=== PATIENT | female | born 1945 | race Caucasian/White ===

== ENCOUNTER → 2016-09-09 | Outpatient (CLI) | payer BC ==
[~2016-09-09] MED LIST: AFRIN; AMOX875T PO; ANT25 PO; BIOTCAP2 PO; DIAZ-165 PO; IPRA1AER2 INH; LEVO112T2 PO; LOSA1TAB PO; MISCCAP80 PO; MULT-1016 PO; PRED10TA PO; PRT/40 PO; SALI0.6510; UMEC1AER INH
[2016-09-09 13:37] LABS: BASO % 0.4 %; BASO ABS # 0.02 K/uL (0-0.2); COMPLETE YES; EOS % 4.4 %; HEMATOCRIT 43.6 % (37-47); IG% 0.2 %; LYMPH ABS # 1.45 K/uL (1.2-3.4); MEAN CELL VOLUME 95.4 fL (80-100); MEAN CORPUSCULAR HEMOGLOBIN 31.9 pg (25-34); MEAN CORPUSCULAR HGB CONC 33.5 g/dl (32-36); MEAN PLATELET VOLUME 12.9 fL (7.4-10.4); MONO % 12.5 %; NEUT % 54.5 %; PLATELET COUNT 201 K/uL (130-400); RED BLOOD COUNT 4.57 M/uL (4.2-5.4); WHITE BLOOD COUNT 5.18 K/uL (4.8-10.8)
[2016-09-09 13:53] LABS: URINE APPEARANCE CLEAR (CLEAR); URINE BILIRUBIN NEG (NEG); URINE COLOR YELLOW; URINE EPITHELIAL CELL AUTO 20-30 /lpf (0-5); URINE NITRITE NEG (NEG); URINE SPECIFIC GRAVITY 1.022 (1.000-1.030); UROBILINOGEN NEG (NEG)
[2016-09-09 13:57] LABS: MANUAL MICROSCOPIC REQUIRED? NO; REVIEW REQ? NO
[2016-09-09 14:16] LABS: ALT/SGPT 41 U/L (12-78); BLOOD UREA NITROGEN 24 mg/dl (7-18); BUN/CREATININE RATIO 27.4 (10-20); CARBON DIOXIDE 26 mmol/L (21-32); CHLORIDE 106 mmol/L (98-107); CREATININE 0.86 mg/dl (0.60-1.20); GLUCOSE 93 mg/dl (70-99); POTASSIUM 4.3 mmol/L (3.5-5.1); SODIUM 143 mmol/L (136-145)
[2016-09-09 14:19] LABS: ALKALINE PHOSPHATASE 69 U/L (45-117); AST/SGOT 25 U/L (15-37)
== END | disposition home or self-care (01) ==
LOC: C.LAB 12:18
PROVIDERS: ATTEND Family Medicine
DX: K92.1 Melena (principal); R10.9 Unspecified abdominal pain

== ENCOUNTER → 2016-09-20 | Day surgery (SDC) | payer BC ==
[2016-09-19 07:37] VITALS: Ht 161.3 cm; Wt 96.4 kg
[~2016-09-20] VITALS: Ht 161.3 cm; Wt 96.4 kg
[~2016-09-20] MED LIST changes: -DIAZ-165 PO; +LIDOCAINE HCL 2% 2 ML VIAL (20MG/ML) ONE; +MIDAZOLAM HCL 1 MG/ML 2ML VIAL ONE; +ONDANSETRON INJ 2 MG/ML 2 ML VIAL ONE; +PROPOFOL IV EMULSION 10 MG/ML 20 ML VIAL IV ONE; +SODIUM CHLORIDE 0.9% 500ML 500 ML IV ONE
--- NOTE | 2016-09-20 08:48 | Endo History and Physical ---
History & Physical Date of Service: Sep 20, 2016. Chief Complaint: rectal bleeding Referring Physician: Dr. Candace Parker History of Present Illness 71 yo CF who presents for colonoscopy secondary to rectal bleeding. Past Medical History Arthritis, Cancer, COPD, Thyroid Disease Past Surgical History Hx Cardiac Surgery: No Hx Internal Defibrillator: No Hx Pacemaker: No Hx Abdominal Surgery: Yes (APPY) Hx of Implantable Prosthesis: No Hx Post-Op Nausea and Vomiting: No Hx Cancer Surgery: Yes (AZAR BSO) Hx Thoracic Surgery: No Hx Orthopedic: Yes (LEFT KNEE ARTHROSCOPY) Hx Urinary Tract Surgery: No Family History Polyp Social History Smoking Status: Never Smoker Hx Substance Use: No Hx Alcohol Use: No Allergies Coded Allergies: Morphine (Verified Allergy, Mild, itching, 09/19/16) Current Medications Reported Home Medications Medications Dose Route/Sig Max Daily Dose Days Date Category Biotin 5000 (Biotin) 5 Mg Cap 1 Cap PO BID 09/19/16 Reported Multivitamin Women 50+ (Multiple Vitamins W/ Minerals) 1 Tab Tab 1 Tab PO QAM 05/10/16 Reported Anoro Ellipta 62.5-25 Mcg/INH (Umeclidinium-Vilanterol) 1 Aer Aer 1 Puff INH QAM 05/10/16 Reported Combivent Respimat (Ipratropium-Albuterol) 1 Aer Aer 1 Puff INH QID PRN 12/04/15 Reported Synthroid (Levothyroxine Sodium) 112 Mcg Tab 112 Mcg PO QAM 07/22/15 Reported Pantoprazole Sodium (Pantoprazole) 40 Mg Tab 40 Mg PO QAM 07/22/15 Reported Vital Signs Weight (Kilograms): 96.36 Height (Feet): 5 Height (Inches): 3.5 Date Time Temp Pulse Resp B/P Pulse Ox O2 Delivery O2 Flow Rate FiO2 09/20/16 08:10 36.3 103 20 177/72 97 Room Air Physical Exam General Appearance: WD/WN, no apparent distress Respiratory/Chest: Auscultation: breath sounds normal Cardiovascular: Heart Auscultation: RRR Abdomen: Bowel Sounds: normal Inspection & Palpation: soft, non-distended, no tenderness, guarding & rebound Assessment and Plan Assessment: 71 yo CF who presents for colonoscopy secondary to rectal bleeding. Plan: Proceed with colonoscopy.
--- NOTE | 2016-09-20 09:36 | Discharge Instructions ---
Endoscopy Patient Instructions Date / Procedure(s) Performed Sep 20, 2016. Colonoscopy Allergy Information Coded Allergies: Morphine (Verified Allergy, Mild, itching, 09/19/16) Discharge Date / Findings Sep 20, 2016. Colon polyps Diverticulosis Internal hemorrhoids Medication Instructions OK to resume all medications today as prescribed. Reported Home Medications Medications Dose Route/Sig Max Daily Dose Days Date Category Biotin 5000 (Biotin) 5 Mg Cap 1 Cap PO BID 09/19/16 Reported Multivitamin Women 50+ (Multiple Vitamins W/ Minerals) 1 Tab Tab 1 Tab PO QAM 05/10/16 Reported Anoro Ellipta 62.5-25 Mcg/INH (Umeclidinium-Vilanterol) 1 Aer Aer 1 Puff INH QAM 05/10/16 Reported Combivent Respimat (Ipratropium-Albuterol) 1 Aer Aer 1 Puff INH QID PRN 12/04/15 Reported Synthroid (Levothyroxine Sodium) 112 Mcg Tab 112 Mcg PO QAM 07/22/15 Reported Pantoprazole Sodium (Pantoprazole) 40 Mg Tab 40 Mg PO QAM 07/22/15 Reported Provider Instructions Activity Restrictions - No exercising or heavy lifting for 24 hours. - Do not drink alcohol the day of the procedure. - Do not drive a car or operate machinery until the day after the procedure. - Do not make any important decisions or sign important papers in 24 hours after the procedure. Following Day: - Return to full activity which may include returning to work/school. Diet Start your diet with liquids and light foods (jello, soup, juice, toast). Then eat your usual diet if not nauseated. Treatment For Common After Affects For mild abdominal pain, bloating, or excessive gas: - Rest - Eat lightly - Lie on right side Follow-Up Information Follow-up with Dr. Candace Parker as scheduled Anesthesia Information What You Should Know You have had a procedure that required some medicine to reduce anxiety and discomfort. This treatment is called moderate sedation. After receiving the treatment, you may be sleepy, but you will be able to breathe on your own. The effects of the treatment may last for several hours. Follow these instructions along with Activity/Diet recommendations noted above: * Do NOT do anything where dizziness or clumsiness would be dangerous. * Rest quietly at home today, then you can be up and about tomorrow. * Have a responsible person stay with you the rest of today. * You may have had an I.V. today. If so, you may take the dressing off later today. Recommendations Call your doctor if: * Trouble breathing * Continuous vomiting for more than 24 hours * Temperature above 101 degrees * Severe abdominal pain or bloating * Pain not relieved by pain medicine ordered * There is increased drainage or redness from any incision * A large amount of rectal bleeding greater than 2-3 tablespoons. (If you had a polyp/s removed or have hemorrhoids, a small amount of blood - from the rectum is to be expected.) * You have any unanswered questions or concerns. IN THE EVENT OF A SERIOUS EMERGENCY, GO TO THE NEAREST EMERGENCY ROOM Your discharge instructions were prepared by provider Evgeny French. Patient Instructions Signature Page Cyn Modi Patient (or Guardian) Signature/Date: I have read and understand the instructions given to me by my caregivers. Caregiver/RN/Doctor Signature/Date: The above-named patient and/or guardian has received patient instructions on this date. + Original Patient Signature Page (only) stays with chart. Please make copy for patient.
[2016-09-20 09:43] VITALS: BP 136/82; PULSE 69; O2SAT 98
--- NOTE | 2016-09-20 09:45 | GI REPORT ---
Procedure Date: 09/20/2016 8:40 AM Procedure: Colonoscopy Indications: Rectal bleeding Medicines: Monitored Anesthesia Care Complications: No immediate complications. Estimated Blood Loss: Estimated blood loss: none. Procedure: Pre-Anesthesia Assessment: - Prior to the procedure, a History and Physical was performed, and patient medications and allergies were reviewed. The patient's tolerance of previous anesthesia was also reviewed. The risks and benefits of the procedure and the sedation options and risks were discussed with the patient. All questions were answered, and informed consent was obtained. Prior Anticoagulants: The patient has taken no previous anticoagulant or antiplatelet agents. ASA Grade Assessment: III - A patient with severe systemic disease. After reviewing the risks and benefits, the patient was deemed in satisfactory condition to undergo the procedure. After I obtained informed consent, the scope was passed under direct vision. Throughout the procedure, the patient's blood pressure, pulse, and oxygen saturations were monitored continuously. The scope was introduced through the anus and advanced to the terminal ileum. The colonoscopy was performed without difficulty. The patient tolerated the procedure well. The quality of the bowel preparation was good. The terminal ileum, ileocecal valve, appendiceal orifice, and rectum were photographed. Findings: Two sessile polyps were found in the transverse colon and in the ascending colon. The polyps were 5 to 8 mm in size. These polyps were removed with a hot snare. Resection and retrieval were complete. Multiple small-mouthed diverticula were found in the sigmoid colon. Non-bleeding internal hemorrhoids were found during retroflexion. The hemorrhoids were small. Impression: - Two 5 to 8 mm polyps in the transverse colon and in the ascending colon, removed with a hot snare. Resected and retrieved. - Diverticulosis in the sigmoid colon. - Non-bleeding internal hemorrhoids. Recommendation: - Resume previous diet. - Continue present medications. - Repeat colonoscopy for surveillance based on pathology results. - Return to primary care physician as previously scheduled. Evgeny French, DO 09/20/2016 9:45:17 AM This report has been signed electronically. Note Initiated On: 09/20/2016 8:40 AM
--- NOTE | 2016-09-20 09:50 | Anesthesiology Progress Note ---
Anesthesia Post Op Note Date & Time Sep 20, 2016 at 09:50 Vital Signs Pain Intensity: 0 Vital Signs Past 12 Hours Date Time Temp Pulse Resp B/P Pulse Ox O2 Delivery O2 Flow Rate FiO2 09/20/16 09:43 69 22 136/82 98 Room Air 09/20/16 09:28 87 22 111/69 95 Room Air 09/20/16 09:13 88 24 129/62 96 Room Air 09/20/16 08:10 36.3 103 20 177/72 97 Room Air Notes Mental Status: alert / awake / arousable, participated in evaluation Pt Amnestic to Procedure: Yes Nausea / Vomiting: adequately controlled Pain: adequately controlled Airway Patency, RR, SpO2: stable & adequate BP & HR: stable & adequate Hydration State: stable & adequate Anesthetic Complications: no major complications apparent
== END | disposition home or self-care (01) ==
LOC: C.GI 07:32
PROVIDERS: ATTEND Internal Medicine
DX: K62.5 Hemorrhage of anus and rectum (principal); D12.2 Benign neoplasm of ascending colon; D12.3 Benign neoplasm of transverse colon; K57.30 Diverticulosis of large intestine without perforation or abscess without bleeding; K64.8 Other hemorrhoids; J45.909 Unspecified asthma, uncomplicated; J44.9 Chronic obstructive pulmonary disease, unspecified; E07.9 Disorder of thyroid, unspecified; Z90.49 Acquired absence of other specified parts of digestive tract; Z98.890 Other specified postprocedural states

== ENCOUNTER 2016-09-23 16:49 | Inpatient (IN) | payer BC, OTHER ==
[~2016-09-23] VITALS: Ht 162.6 cm; Wt 98.3 kg
[~2016-09-23 16:49] MED LIST changes: -AFRIN; -AMOX875T PO; -ANT25 PO; -LIDOCAINE HCL 2% 2 ML VIAL (20MG/ML) ONE; -MIDAZOLAM HCL 1 MG/ML 2ML VIAL ONE; -MISCCAP80 PO; -ONDANSETRON INJ 2 MG/ML 2 ML VIAL ONE; -PRED10TA PO; -PROPOFOL IV EMULSION 10 MG/ML 20 ML VIAL IV ONE; -SALI0.6510; -SODIUM CHLORIDE 0.9% 500ML 500 ML IV ONE
[2016-09-23] MEDS ORDERED: METHYLPREDNISOLONE 125 MG VIAL IV STA (16:55)
[2016-09-23] MEDS ORDERED: ONDANSETRON INJ 2 MG/ML 2 ML VIAL IV STA (16:55)
[2016-09-23] MEDS ORDERED: LORAZEPAM 2 MG/ML 1 ML VIAL IV STA (16:55)
[2016-09-23] MEDS ORDERED: MECLIZINE HCL 25 MG TAB PO STA (16:55)
--- NOTE | 2016-09-23 17:03 | EMERGENCY ROOM VISIT NOTE ---
History Report prepared by Shira: Elvia De La Garza Under the Supervision of: Dr. Livier Grigsby M.D. First contact with patient: 16:52 Chief Complaint: VOMITING Stated Complaint: DIZZY, VOMITING, NAUSEA History of Present Illness The patient is a 71 year old female who presents to the Emergency Room with complaints of persistent vomiting that began prior to arrival. Per nursing staff, the patient was eating lunch at [employer] with her today. They note that after the patient and her had left, the patient began feeling dizzy and lightheaded. Nursing staff notes that the patient and her pulled off to the side of the road and the patient began vomiting. They state that the patient's called 911 for further assistance. Nursing staff notes that the patient arrived at the emergency department and began vomiting again. They note that the patient had just finished vomiting when she had a sudden syncopal episode. The patient describes the dizziness she is experiencing as a room spinning sensation. Today she states that her head hurts, and feels that it does not belong to her body. The patient's states that the patient has had two episodes of vertigo this past year, noting that with each episode she has experienced dry heaves. He states that this is the first time that the patient actually vomited. The patient denies any history of diabetes or being on any blood thinners. Source of History: patient, spouse/significant other (), nursing staff Onset: vomitting Position: other (global) Quality: other (vomiting) Timing: other (persistent) Associated Symptoms: + LOC (syncopal episode) Note: Associated Symptoms: dizziness, head pain, lightheadedness Review of Systems See HPI for pertinent positives & negatives. A total of 10 systems reviewed and were otherwise negative. Past Medical & Surgical Medical Problems: (1) Acute labyrinthitis (2) Chest pain (3) Gastroesophageal reflux disease (4) Thyroid disease (5) Uterine cancer (6) Vertigo (7) vertigo (8) Vertigo Surgical Problems: (1) History of appendectomy (2) History of hysterectomy Family History No pertinent family history Social History Smoking Status: Never Smoker Alcohol Use: none Drug Use: none Marital Status: Housing Status: lives with family Occupation Status: unemployed Current/Historical Medications Scheduled Amoxicillin & Pot Clavulanate (Augmentin 875-125 mg), 1 TAB PO BID Biotin (Biotin 5000), 1 CAP PO BID Levothyroxine Sodium (Synthroid), 112 MCG PO QAM Losartan Potassium (Cozaar), 25 MG PO QAM Multiple Vitamins W/ Minerals (Multivitamin Women 50+), 1 TAB PO QAM Pantoprazole (Pantoprazole Sodium), 40 MG PO QAM Prednisone (Prednisone), 10 MG PO DIRECTED Umeclidinium-Vilanterol (Anoro Ellipta 62.5-25 Mcg/INH), 1 PUFF INH QAM Scheduled PRN Ipratropium-Albuterol (Combivent Respimat), 1 PUFF INH QID PRN for SOB/Wheezing Allergies Coded Allergies: Morphine (Verified Allergy, Mild, itching, 09/23/16) Physical Exam Vital Signs Date Time Temp Pulse Resp B/P Pulse Ox O2 Delivery O2 Flow Rate FiO2 09/23/16 20:04 73 20 133/70 95 Room Air 09/23/16 17:40 97 Nasal Cannula 3.0 09/23/16 17:40 71 16 147/77 97 Nasal Cannula 3.0 09/23/16 17:03 72 09/23/16 17:03 37.4 72 18 163/76 98 Room Air Physical Exam Vital signs reviewed. General: Uncomfortable appearing 71 year old female, in no significant distress. HEENT: No scleral icterus, PERRLA, horizontal nystagmus, neck supple. Atraumatic. Cardiovascular: Regular rate and rhythm, no extra sounds. Pulmonary: Clear to auscultation bilaterally, normal work of breathing. Abdomen: Obese, soft, nontender, nondistended, positive bowel sounds. Musculoskeletal: Atraumatic, no peripheral edema. Neurologic: Patient awake alert and oriented x 3, full strength in all 4 extremities. Cranial nerves 2 through 12 grossly intact. Skin: Warm, dry, no rash Medical Decision & Procedures ER Provider Diagnostic Interpretation: X-ray results as stated below per my interpretation and radiologist interpretation. Other radiology results as stated below per my review and radiologist interpretation: CT HEAD WITHOUT CONTRAST (CT) CLINICAL HISTORY: vertigo, vomiting COMPARISON STUDY: 05/10/2016 TECHNIQUE: Axial CT of the brain is performed from the vertex to the skull base. IV contrast was not administered for this examination. CT DOSE: 773.57 mGy.cm FINDINGS: No intra or extra-axial mass lesions are visualized. There is no CT evidence of acute cortical infarction. There is no evidence of midline shift. There is no acute hemorrhage. No calvarial fractures are visualized. There are patchy white matter hypodensities likely on a small vessel basis. There is no evidence of pathologic ventricular dilatation. Since the prior study, the patient has developed mucosal thickening within the right maxilla sinus. There is sphenoid sinus mucosal disease. There are multiple opacified right-sided ethmoid air cells. There are right frontal air-fluid levels. There is a stable small lytic focus within the right frontal calvarium. IMPRESSION: 1. Interval development of extensive inflammatory changes within the paranasal sinuses. 2. Otherwise no acute intracranial findings Electronically signed by: John Frazier M.D. 09/23/2016 5:27 PM Dictated Date/Time: 09/23/2016 5:24 PM CHEST ONE VIEW PORTABLE CLINICAL HISTORY: vertigo, vomiting DIZZINESS COMPARISON STUDY: 12/04/2015 FINDINGS: The heart is mildly enlarged. There is radiographic evidence of mild congestive failure/fluid overload. There is no lobar consolidation. There is an equivocal 1 cm right midlung zone pulmonary nodule. A follow-up chest x-ray following treatment to the patient's presumed failure is recommended.[ IMPRESSION: 1. Mild congestive failure/fluid overload 2. Equivocal 1 cm right midlung zone pulmonary nodule Electronically signed by: John Frazier M.D. 09/23/2016 6:13 PM Dictated Date/Time: 09/23/2016 6:12 PM Laboratory Results Test 09/23/16 16:59 09/23/16 17:00 09/23/16 17:49 Bedside Glucose 131 mg/dl (70-90) Direct Bilirubin 0.1 mg/dl (0-0.2) Total Creatine Kinase 96 U/L (26-192) Creatine Kinase MB 0.7 ng/ml (0.5-3.6) Creatine Kinase MB Ratio 0.7 (0-3.0) Lipase 130 U/L (73-393) Bedside Troponin I 0.020 ng/ml (0-0.045) Laboratory results per my review. Medications Administered Medications (Trade) Dose Ordered Sig/Radha Route Start Time Stop Time Status Last Admin Dose Admin Ondansetron HCl (Zofran Inj) 4 mg NOW STAT IV 09/23/16 16:55 09/23/16 16:58 DC 09/23/16 17:12 4 MG Lorazepam (Ativan Inj) 1 mg NOW STAT IV 09/23/16 16:55 09/23/16 16:58 DC 09/23/16 17:12 1 MG Methylprednisolone Sodium Succinate (Solu-Medrol IV) 125 mg NOW STAT IV 09/23/16 16:55 09/23/16 16:58 DC 09/23/16 17:51 125 MG Meclizine HCl (Antivert Tab) 25 mg NOW STAT PO 09/23/16 16:55 09/23/16 16:58 DC 09/23/16 17:52 25 MG Oxymetazoline HCl 2 sprays 2 sprays NOW ONCE NOEMY 09/23/16 18:30 09/23/16 18:31 DC 09/23/16 20:03 2 SPRAYS Ampicillin Sodium/ Sulbactam Sodium/ Sodium Chloride (Unasyn Inj/Nss 100ml) 108 ml @ 200 mls/hr NOW STAT IV 09/23/16 18:26 09/23/16 18:58 DC 09/23/16 19:24 200 MLS/HR ECG Indication: other (dizzy) Rate (beats per minute): 72 Rhythm: normal sinus Findings: no acute ischemic change, no ectopy ED Course 1653: Past medical records reviewed. The patient was evaluated in room B3B. A complete history and physical examination was performed. Ordered Meclizine HCl 25 mg PO, Solu-Medrol 125 mg IV, Lorazepam 1 mg IV, Zofran Inj 4 mg IV. 1825: Ordered Ampicillin Sodium/Sulbactam Sodium 3000 mg/NSS 108 ml @ 200 mls/ hr IV, Oxymetazoline HCl 2 sprays NOEMY. 1899: I reassessed the patient. She was sleeping. 2004: I reassessed the patient. She began to vomit during an ambulation trial. I discussed a treatment plan with the patient, which she agreed to. 2023: I discussed the case with Dr. Rondon - [facility]. The patient will be evaluated for further management. Medical Decision Differential diagnosis: Etiologies such as benign positional vertigo, dehydration, hypovolemia, anemia, tumor, infection, hypoglycemia, electrolyte abnormalities, cardiac sources, intracerebral event, toxicologic, neurologic, as well as others were entertained. This pt was evaluated and appeared to be in no distress. IV access was obtained and lab work was drawn. Pt was hydrated with NSS, given IV zofran, solu-medral, ativan. CT head reveals evidence of severe sinusitis. Pt was reevaluated and was sleeping. She was observed for several hours in the ED. She failed an ambulation trial with 2 person assist. Pt has a near syncopal episode and vomited. Pt was given additional zofran, intranasal afrin and Unasyn IV. Findings were d/w pt and her . The hospitalist was consulted for further management. Consults Time Called: 2010 Consulting Physician: Dr. Alcon Mendenhall [facility] Returned Call: 2023 I discussed the case with him. The patient will be evaluated for further management. Impression Primary Impression: Acute sinusitis Additional Impression: Vertigo Scribe Attestation The scribe's documentation has been prepared under my direction and personally reviewed by me in its entirety. I confirm that the note above accurately reflects all work, treatment, procedures, and medical decision making performed by me. Departure Information Dispostion Being Evaluated By Hospitalist Prescriptions Prednisone (Prednisone) 10 Mg Tab 10 MG PO DIRECTED, #31 TAB 40 mg daily for 4 days, 30 mg daily for 3 days, 20 mg daily for 2 days, 10 mg daily for 2 days Prov: Livier Grigsby M.D. 09/23/16 Amoxicillin & Pot Clavulanate (Augmentin 875-125 mg) 1 Tab Tab 1 TAB PO BID, #20 TAB Prov: Livier Grigsby M.D. 09/23/16 Referrals Candace Cohn DO (PCP) Patient Instructions My [facility] Problem Qualifiers Primary Impression: Acute sinusitis Sinusitis location: maxillary Recurrence: not specified as recurrent Qualified Codes: J01.00 - Acute maxillary sinusitis, unspecified
--- NOTE | 2016-09-23 17:29 | DIAGNOSTIC IMAGING REPORT ---
CT HEAD WITHOUT CONTRAST (CT) CLINICAL HISTORY: vertigo, vomiting COMPARISON STUDY: 05/10/2016 TECHNIQUE: Axial CT of the brain is performed from the vertex to the skull base. IV contrast was not administered for this examination. CT DOSE: 773.57 mGy.cm FINDINGS: No intra or extra-axial mass lesions are visualized. There is no CT evidence of acute cortical infarction. There is no evidence of midline shift. There is no acute hemorrhage. No calvarial fractures are visualized. There are patchy white matter hypodensities likely on a small vessel basis. There is no evidence of pathologic ventricular dilatation. Since the prior study, the patient has developed mucosal thickening within the right maxilla sinus. There is sphenoid sinus mucosal disease. There are multiple opacified right-sided ethmoid air cells. There are right frontal air-fluid levels. There is a stable small lytic focus within the right frontal calvarium. IMPRESSION: 1. Interval development of extensive inflammatory changes within the paranasal sinuses. 2. Otherwise no acute intracranial findings Electronically signed by: John Frazier M.D. 09/23/2016 5:27 PM Dictated Date/Time: 09/23/2016 5:24 PM
[2016-09-23 17:31] LABS: BASO % 0.2 %; BASO ABS # 0.02 K/uL (0-0.2); COMPLETE YES; EOS % 1.7 %; HEMATOCRIT 40.6 % (37-47); IG% 0.3 %; LYMPH % 23.6 %; LYMPH ABS # 2.53 K/uL (1.2-3.4); MEAN CELL VOLUME 93.3 fL (80-100); MEAN CORPUSCULAR HEMOGLOBIN 32.4 pg (25-34); MEAN CORPUSCULAR HGB CONC 34.7 g/dl (32-36); MEAN PLATELET VOLUME 12.9 fL (7.4-10.4); MONO % 10.3 %; NEUT % 63.9 %; PLATELET COUNT 187 K/uL (130-400); RED BLOOD COUNT 4.35 M/uL (4.2-5.4); WHITE BLOOD COUNT 10.74 K/uL (4.8-10.8)
--- NOTE | 2016-09-23 18:15 | DIAGNOSTIC IMAGING REPORT ---
CHEST ONE VIEW PORTABLE CLINICAL HISTORY: vertigo, vomiting DIZZINESS COMPARISON STUDY: 12/04/2015 FINDINGS: The heart is mildly enlarged. There is radiographic evidence of mild congestive failure/fluid overload. There is no lobar consolidation. There is an equivocal 1 cm right midlung zone pulmonary nodule. A follow-up chest x-ray following treatment to the patient's presumed failure is recommended.[ IMPRESSION: 1. Mild congestive failure/fluid overload 2. Equivocal 1 cm right midlung zone pulmonary nodule Electronically signed by: John Frazier M.D. 09/23/2016 6:13 PM Dictated Date/Time: 09/23/2016 6:12 PM
[2016-09-23 18:21] LABS: POTASSIUM 3.9 mmol/L (3.5-5.1)
[2016-09-23] MEDS ORDERED: AMPICILLIN/SULBACTAM SOD INJ 3,000 MG in SODIUM CHLORIDE 0.9% 100ML 100 ML IV STA (18:26)
[2016-09-23 18:29] LABS: BUN/CREATININE RATIO 22.6 (10-20); CKMB/CK RATIO 0.7 (0-3.0); CREATININE 0.97 mg/dl (0.60-1.20)
[2016-09-23] MEDS ORDERED: OXYMETAZOLINE HCL 0.05% NA SPR 15 ML BTL NAE ONE (18:30)
[2016-09-23] MEDS ORDERED: AMOX875T PO (19:56)
[2016-09-23] MEDS ORDERED: PRED10TA PO (19:56)
[2016-09-23] MEDS ORDERED: IPRATROPIUM BROMIDE/ALBUTEROL respimat INH INH PRN (21:00)
[2016-09-23] MEDS ORDERED: ALUMINUM/MAGNESIUM/SIMETH (MAALOX MAX) 30 ML UDC PO PRN (21:15)
[2016-09-23] MEDS ORDERED: METOCLOPRAMIDE HCL INJ 5 MG/ML 2 ML VIAL IV PRN (21:15)
[2016-09-23] MEDS ORDERED: ACETAMINOPHEN 325 MG TAB PO PRN (21:15)
[2016-09-23] MEDS ORDERED: MAGNESIUM HYDROXIDE SUSP 30 ML UDC PO PRN (21:15)
[2016-09-23] MEDS ORDERED: POLYETHYLENE (MIRALAX) 17 GM PACK PO PRN (21:15)
--- NOTE | 2016-09-23 22:20 | History and Physical ---
History & Physical Date & Time of Service: Sep 23, 2016 at 21:37 Chief Complaint: Dizzy, Vomiting, Nausea Primary Care Physician: Candace Cohn DO History of Present Illness Source: patient 71 y/o F Hx HTN, hypothyroid - currently being treated for a sinus infection with Amoxicillin and Prednisone. She ate lunch and then got in the car with her when she developed acute vertigo on the drive. 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 She was treated with antiemetics and fluids ion the ER which initially had a palliative effect. She attempted to ambulate shortly thereafter and her symptoms quickly recurred. She describes a persistent spinning sensation and nausea at the time of admission. She denies fevers, CP, SOB or dysuria. A CT head was obtained which confirms sinusitis but was otherwise negative. Past Medical/Surgical History Medical Problems: (1) Gastroesophageal reflux disease Status: Chronic (2) Thyroid disease Status: Chronic (3) Uterine cancer Status: Resolved Surgical Problems: (1) History of appendectomy Status: Resolved (2) History of hysterectomy Status: Resolved Family History No pertinent family history Mother dementia, Father heart disease Social History Smoking Status: Never Smoker Drug Use: none Marital Status: Housing status: lives with significant other Occupational Status: unemployed Immunizations History of Influenza Vaccine: Yes Influenza Vaccine Date: Jun 13, 2008 History of Tetanus Vaccine?: Unknown History of Pneumococcal: Yes Pneumococcal Date: Nov 23, 2011 History of Hepatitis B Vaccine: No Multi-Drug Resistant Organisms History of MDRO: No Allergies Coded Allergies: Morphine (Verified Allergy, Mild, itching, 09/23/16) Home Medications Scheduled Amoxicillin & Pot Clavulanate (Augmentin 875-125 mg), 1 TAB PO BID Biotin (Biotin 5000), 1 CAP PO BID Levothyroxine Sodium (Synthroid), 112 MCG PO QAM Losartan Potassium (Cozaar), 25 MG PO QAM Multiple Vitamins W/ Minerals (Multivitamin Women 50+), 1 TAB PO QAM Pantoprazole (Pantoprazole Sodium), 40 MG PO QAM Prednisone (Prednisone), 10 MG PO DIRECTED Umeclidinium-Vilanterol (Anoro Ellipta 62.5-25 Mcg/INH), 1 PUFF INH QAM Scheduled PRN Ipratropium-Albuterol (Combivent Respimat), 1 PUFF INH QID PRN for SOB/Wheezing Review of Systems Constitutional: No chills, No fever, No sweats Eyes: + problem reported (Spinning sensation), + worsening of vision, No eye pain ENT: No hearing loss, No unusual epistaxis Respiratory: No cough, No sputum Cardiovascular: No PND, No chest pain, No orthopnea Abdomen: + nausea, + vomiting, No pain Musculoskeletal: No joint pain, No muscle pain Genitourinary - Female: No dysuria, No urinary frequency, No urinary urgency Neurologic: + balance problems, + vertigo, No memory loss, No paralysis, No weakness Psychiatric: No anhedonism, No depression symptoms Endocrine: No excessive thirst, No fatigue Hematologic / Lymphatic: No abnormal bleeding/bruising Integumentary: No rash Allergic / Immunologic: No environmental allergies Physical Exam Vital Signs Date Time Temp Pulse Resp B/P Pulse Ox O2 Delivery O2 Flow Rate FiO2 09/23/16 20:04 73 20 133/70 95 Room Air 09/23/16 17:40 97 Nasal Cannula 3.0 09/23/16 17:40 71 16 147/77 97 Nasal Cannula 3.0 09/23/16 17:03 72 09/23/16 17:03 37.4 72 18 163/76 98 Room Air General Appearance: WD/WN, no apparent distress Head: normocephalic Eyes: + pertinent finding (Pupils constricted likely due to meds - equal in size and reactive - she could not tolerate an eye exam to evaluate for nystagmus due to ongoing vertigo) ENT: hearing grossly normal, TMs normal, pharynx normal, + pertinent finding ( Tenderness to palpation above eyes ) Neck: supple, no JVD Respiratory/Chest: chest non-tender, lungs clear, normal breath sounds, no respiratory distress, no accessory muscle use Cardiovascular: regular rate, rhythm, no edema, no gallop Abdomen/GI: normal bowel sounds, non tender, soft Back: normal inspection Extremities/Musculoskelatal: normal inspection, no calf tenderness, normal capillary refill, no pedal edema, normal range of motion Neurologic/Psych: + pertinent finding (Exam is limited due to pt discomfort however she is able to maintain coordination with effort and is AAO x 3 - eye exam could not be completed - there may be a degree of nystagmus ) Skin: normal color, warm/dry, no rash Diagnostics Laboratory Results Results Past 24 Hours Test 09/23/16 16:59 09/23/16 17:00 09/23/16 17:49 Range/Units Bedside Glucose 131 70-90 mg/dl White Blood Count 10.74 4.8-10.8 K/uL Red Blood Count 4.35 4.2-5.4 M/uL Hemoglobin 14.1 12.0-16.0 g/dL Hematocrit 40.6 37-47 % Mean Corpuscular Volume 93.3 80-100 fL Mean Corpuscular Hemoglobin 32.4 25-34 pg Mean Corpuscular Hemoglobin Concent 34.7 32-36 g/dl Platelet Count 187 130-400 K/uL Mean Platelet Volume 12.9 7.4-10.4 fL Neutrophils (%) (Auto) 63.9 % Lymphocytes (%) (Auto) 23.6 % Monocytes (%) (Auto) 10.3 % Eosinophils (%) (Auto) 1.7 % Basophils (%) (Auto) 0.2 % Neutrophils # (Auto) 6.87 1.4-6.5 K/uL Lymphocytes # (Auto) 2.53 1.2-3.4 K/uL Monocytes # (Auto) 1.11 0.11-0.59 K/uL Eosinophils # (Auto) 0.18 0-0.5 K/uL Basophils # (Auto) 0.02 0-0.2 K/uL RDW Standard Deviation 45.4 36.4-46.3 fL RDW Coefficient of Variation 13.1 11.5-14.5 % Immature Granulocyte % (Auto) 0.3 % Immature Granulocyte # (Auto) 0.03 0.00-0.02 K/uL Sodium Level 141 136-145 mmol/L Potassium Level 3.9 3.5-5.1 mmol/L Chloride Level 106 98-107 mmol/L Carbon Dioxide Level 22 21-32 mmol/L Anion Gap 13.0 3-11 mmol/L Blood Urea Nitrogen 22 7-18 mg/dl Creatinine 0.97 0.60-1.20 mg/dl Est Creatinine Clear Calc Drug Dose 60.8 ml/min Estimated GFR () 68.1 Estimated GFR (Non- 58.8 BUN/Creatinine Ratio 22.6 10-20 Random Glucose 139 70-99 mg/dl Calcium Level 9.0 8.5-10.1 mg/dl Magnesium Level 2.0 1.8-2.4 mg/dl Total Bilirubin 0.2 0.2-1 mg/dl Direct Bilirubin 0.1 0-0.2 mg/dl Aspartate Amino Transf (AST/SGOT) 16 15-37 U/L Alanine Aminotransferase (ALT/SGPT) 26 12-78 U/L Alkaline Phosphatase 71 45-117 U/L Total Creatine Kinase 96 26-192 U/L Creatine Kinase MB 0.7 0.5-3.6 ng/ml Creatine Kinase MB Ratio 0.7 0-3.0 Total Protein 7.4 6.4-8.2 gm/dl Albumin 3.6 3.4-5.0 gm/dl Lipase 130 73-393 U/L Bedside Troponin I 0.020 0-0.045 ng/ml Diagnostic Radiology CT head 1. Interval development of extensive inflammatory changes within the paranasal sinuses. Otherwise no acute intracranial findings. Impression Assessment and Plan 71 y/o F Hx HTN, hypothyroid - currently being treated for a sinus infection with Amoxicillin and Prednisone. Developed acute vertigo, nausea, vomiting after lunch. She was treated with antiemetics and fluids ion the ER which initially had a palliative effect. She attempted to ambulate shortly thereafter and her symptoms quickly recurred. She describes a persistent spinning sensation and nausea at the time of admission. A CT head was obtained which confirms sinusitis but was otherwise negative. 1) Acute vertigo - nausea/vomiting - we likely have an etiology as she is being treated for sinusitis which is confirmed on CT. I would therefore hold off on an MRI unless her symptoms persist but will treat with ASA regardless. We will also treat with Unasyn as she cannot tolerate PO Augmentin. She will receive antiemetics as needed, be kept NPO and provided with IVF. 2) HTN - Losartan can be continued oif tolerated - IV sub can be provided if needed 3) Hypothyroid - cont Synthroid Full code - heparin prophylaxis Total time for this admit including review of records, labs, imaging - med rec - discussion with Pt and ER MD 35 min Level of Care Med/Surg Resuscitation Status FULL RESUSCITATION VTE Prophylaxis VTE Risk Assessment Done? Y/N: Yes Risk Level: Moderate Given or contraindicated: Unfractionated heparin SQ
[2016-09-23 22:31] VITALS: BP 149/76; PULSE 69; TEMP 36.5; O2SAT 95; Ht 162.6 cm; Wt 98.3 kg
[2016-09-24 00:17] VITALS: BP 143/4; PULSE 66; TEMP 36.8; O2SAT 97
[2016-09-24] MEDS ORDERED: ASPIRIN 300 MG SUPP PR ONE (03:30)
[2016-09-24] MEDS: D5NSS + 20MEQ KCL 1,000 ML IV SCH ×2 (04:08→16:06)
[2016-09-24] MEDS: AMPICILLIN/SULBACTAM SOD INJ 1,500 MG in SODIUM CHLORIDE 0.9% 100ML 100 ML IV SCH ×4 (04:08→21:50)
[2016-09-24] MEDS: LEVOTHYROXINE 112 MCG TAB PO SCH (06:00)
[2016-09-24 06:04] LABS: PROTHROMBIN TIME (PATIENT) 11.1 SECONDS (9.0-12.0)
[2016-09-24] MEDS: HEPARIN SOD 5000 UNIT/0.5 ML CARP SQ SCH ×3 (06:31→21:55)
[2016-09-24 07:44] VITALS: BP 133/69; PULSE 67; TEMP 36.4; O2SAT 94
[2016-09-24] MEDS: ANORO ELLIPTA~ORDER AWAITING ACTION SCH ×3 (10:33→23:55)
[2016-09-24] MEDS: PANTOprazole SOD 40 MG TAB PO SCH (10:34)
[2016-09-24] MEDS: LOSARTAN POTASSIUM 25 MG TAB PO SCH (10:35)
[2016-09-24] MEDS: ONDANSETRON INJ 2 MG/ML 2 ML VIAL IV PRN (11:26)
[2016-09-24] MEDS: IV FLUIDS COMPLETED PRN (14:30)
--- NOTE | 2016-09-24 15:13 | DIAGNOSTIC IMAGING REPORT ---
MRI OF THE BRAIN WITHOUT CONTRAST CLINICAL HISTORY: Dizziness. Vertigo. Evaluate for cerebrovascular accident. COMPARISON STUDY: MRI of the brain July 22, [address] September 23, 2016. TECHNIQUE: Utilizing a 1.5 Anne magnet and dedicated coil, multiplanar, multiecho imaging of the brain was performed without IV contrast. FINDINGS: No areas of restricted diffusion are present. No acute intracranial hemorrhage, midline shift or mass effect is present. Ventricular system is stable. The basilar cisterns are patent. There are no extra-axial collections. Flow-voids for the major intracranial vessels are present. No intracranial masses are identified on this unenhanced examination. Scattered white matter T2 hyperintense foci are unchanged since prior MRI and suggest mild small vessel disease. The appearance of the brain is unchanged. There is marked mucosal thickening of the ethmoid, sphenoid and right maxillary sinuses with an air-fluid level within the right maxillary sinus as well as the right frontal sinus. IMPRESSION: 1. No acute intracranial findings. No change in appearance of the brain. 2. Extensive paranasal sinus disease. This may reflect acute on chronic sinusitis. Electronically signed by: Lazaro Brush M.D. 09/24/2016 3:11 PM Dictated Date/Time: 09/24/2016 3:08 PM
[2016-09-24 15:52] VITALS: BP 123/73; PULSE 58; TEMP 36.7; O2SAT 97
[2016-09-24 16:00] VITALS: O2SAT 97
[2016-09-24 19:42] LABS: URINE APPEARANCE CLOUDY (CLEAR); URINE BILIRUBIN NEG (NEG); URINE COLOR YELLOW; URINE EPITHELIAL CELL AUTO >30 /lpf (0-5); URINE NITRITE NEG (NEG); URINE SPECIFIC GRAVITY 1.026 (1.000-1.030); UROBILINOGEN NEG (NEG)
[2016-09-24 19:47] LABS: MANUAL MICROSCOPIC REQUIRED? NO; REVIEW REQ? YES
[2016-09-24 19:54] LABS: ZZUR CULT IF INDIC CLEAN CATCH YES
[2016-09-24] MEDS ORDERED: OXYMETAZOLINE HCL 0.05% NA SPR 15 ML BTL STA (20:25)
--- NOTE | 2016-09-24 20:25 | Progress Note ---
Subjective Date of Service: Sep 24, 2016. Subjective Pt evaluation today including: conversation w/ patient, physical exam, chart review, lab review Problem List Medical Problems: (1) Acute chest pain Status: Acute (2) Acute sinusitis Status: Acute (3) Altered mental status Status: Acute (4) Vomiting Status: Acute Review of Systems Constitutional: + chills, + fever Eyes: + worsening of vision, No diplopia, No discharge, No eye pain, No problem reported, No redness, No see HPI ENT: No dental problems, No hearing loss, No nasal symptoms, No problem reported, No see HPI, No sore throat, No tinnitus, No trouble swallowing, No unusual epistaxis Respiratory: No cough, No dyspnea at rest, No dyspnea on exertion, No hemoptysis, No problem reported, No see HPI, No shortness of breath, No sputum, No wheezing Cardiac: No PND, No chest pain, No claudication, No edema, No orthopnea, No palpitations, No problem reported, No see HPI Abdomen: No GI bleeding, No constipation, No diarrhea, No nausea, No pain, No problem reported, No see HPI, No vomiting Musculoskeletal: No calf pain, No joint pain, No muscle pain, No problem reported, No see HPI, No swelling Female : No abnormal vaginal bleeding, No dysuria, No hematuria, No incontinence, No problem reported, No see HPI, No urinary frequency, No vaginal discharge Neurologic: + vertigo, No balance problems, No memory loss, No numbness/ tingling, No paralysis, No problem reported, No see HPI, No weakness Psychiatric: No anhedonism, No anxiety, No depression symptoms, No insomnia, No problem reported, No see HPI, No substance abuse Heme: No abnormal bleeding/bruising, No clotting problems, No night sweats, No problem reported, No see HPI, No swollen lymph nodes Endo: No excessive thirst, No excessive urination, No fatigue, No problem reported, No see HPI Skin: No bleeding, No color change, No itch, No new/changing skin lesions, No problem reported, No rash, No see HPI Medications Current Inpatient Medications Medications (Trade) Dose Ordered Sig/Radha Route Start Time Stop Time Status Last Admin Dose Admin Ampicillin Sodium/ Sulbactam Sodium/ Sodium Chloride (Unasyn Inj/Nss 100ml) 104 ml @ 200 mls/hr Q6H IV 09/24/16 04:00 10/04/16 03:59 09/24/16 16:06 200 MLS/HR Albuterol/ Ipratropium (Combivent Respimat Inh) 1 puffs QID PRN INH 09/23/16 21:00 10/23/16 20:59 Levothyroxine Sodium (Synthroid Tab) 112 mcg DAILYBB PO 09/24/16 06:30 10/24/16 06:29 09/24/16 06:00 112 MCG Losartan Potassium (coZAAR TAB) 25 mg QAM PO 09/24/16 08:00 10/24/16 08:59 09/24/16 10:35 25 MG Pantoprazole Sodium (Protonix Tab) 40 mg QAM PO 09/24/16 08:00 10/24/16 08:59 09/24/16 10:34 40 MG Prednisone (PredniSONE TAB) 10 mg DAILY PO 09/24/16 08:00 10/24/16 08:59 Miscellaneous Information (Order Awaiting Action) 1 ea QS N/A 09/24/16 08:00 10/24/16 07:59 Metoclopramide HCl (Reglan Inj) 5 mg Q8H PRN IV 09/23/16 21:15 10/23/16 21:14 09/24/16 16:13 5 MG Heparin Sodium (Porcine) (Heparin Sq 5000 Unit/0.5ml) 5,000 unit Q8 SQ 09/24/16 06:30 10/24/16 06:29 09/24/16 16:08 5,000 UNIT Acetaminophen (Tylenol Tab) 650 mg Q4H PRN PO 09/23/16 21:15 10/23/16 21:14 Al Hydrox/Mg Hydrox/Simethicone (Maalox Max Susp) 15 ml Q4H PRN PO 09/23/16 21:15 10/23/16 21:14 Magnesium Hydroxide (Milk Of Magnesia Susp) 30 ml Q6H PRN PO 09/23/16 21:15 10/23/16 21:14 Polyethylene (Miralax Powder Packet) 17 gm DAILY PRN PO 09/23/16 21:15 10/23/16 21:14 Ondansetron HCl 4 mg 4 mg Q6H PRN IV 09/23/16 21:15 10/23/16 21:14 09/24/16 11:26 4 MG Potassium Chloride/Dextrose/ Sod Cl (D5nss + 20meq KCl) 1,000 ml @ 100 mls/hr Q10H IV 09/24/16 03:45 09/24/16 23:44 09/24/16 16:06 100 MLS/HR Miscellaneous (Iv Fluids Completed) 1 ea PRN PRN N/A 09/23/16 23:00 09/23/17 22:59 09/24/16 14:30 1 EA Objective Vital Signs Date Time Temp Pulse Resp B/P Pulse Ox O2 Delivery O2 Flow Rate FiO2 09/24/16 16:00 97 Room Air 09/24/16 15:52 36.7 58 18 123/73 97 Room Air 09/24/16 07:44 36.4 67 16 133/69 94 Room Air 09/24/16 00:17 36.8 66 20 143/4 97 Nasal Cannula 2.0 09/24/16 00:00 Room Air 09/23/16 22:31 36.5 69 20 149/76 95 Nasal Cannula 2.0 09/23/16 22:04 73 14 149/72 93 2.0 Physical Exam General Appearance: no apparent distress Eyes: normal inspection, PERRL, EOMI ENT: normal ENT inspection, hearing grossly normal Neck: supple Respiratory/Chest: chest non-tender, lungs clear, normal breath sounds, no respiratory distress, no accessory muscle use Cardiovascular: regular rate, rhythm, no edema, no gallop, no JVD Abdomen: normal bowel sounds, non tender, soft, no organomegaly Extremities: normal range of motion, non-tender, normal inspection, no pedal edema Neurologic/Psychiatric: state 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-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 tested, no motor/sensory deficits, alert, + pertinent finding (severe vertigo , failed to do Hallpike maneuver due to severe nausea) Laboratory Results Last 24 Hours Test 09/24/16 05:32 09/24/16 19:00 Prothrombin Time 11.1 SECONDS Prothromb Time International Ratio 1.0 Urine Color YELLOW Urine Appearance CLOUDY Urine pH 6.0 Urine Specific [place] 1.026 Urine Protein NEG Urine Glucose (UA) NEG Urine Ketones NEG Urine Occult Blood NEG Urine Nitrite NEG Urine Bilirubin NEG Urine Urobilinogen NEG Urine Leukocyte Esterase SMALL Urine WBC (Auto) 5-10 /hpf Urine RBC (Auto) 0-4 /hpf Urine Hyaline Casts (Auto) 1-5 /lpf Urine Epithelial Cells (Auto) >30 /lpf Urine Bacteria (Auto) 1+ Urine Renal Epithelial Cells /lpf Assessment and Plan 71 y/o F Hx HTN, hypothyroid - currently being treated for a sinus infection with Amoxicillin and Prednisone. presented with severe acute vertigo, nausea, vomiting 1) Acute vertigo / nausea / vomiting - possibly sinusitis which is confirmed on CT. As she did not improve and I couldn't perform Hellpike maneuver so will proceed with MRI unless her symptoms persist but will treat with ASA regardless. continue Unasyn antiemetics as needed, be kept NPO and provided with IVF. 2) HTN - hold Losartan 3) Hypothyroid - cont Synthroid, check TSH
[2016-09-24] MEDS: MECLIZINE HCL 25 MG TAB PO SCH (21:50)
[2016-09-25 00:01] VITALS: BP 146/81; PULSE 63; TEMP 36.7; O2SAT 94
[2016-09-25] MEDS: AMPICILLIN/SULBACTAM SOD INJ 1,500 MG in SODIUM CHLORIDE 0.9% 100ML 100 ML IV SCH ×4 (04:02→21:57)
[2016-09-25] MEDS: IV FLUIDS COMPLETED PRN (05:07)
[2016-09-25] MEDS: HEPARIN SOD 5000 UNIT/0.5 ML CARP SQ SCH ×3 (05:46→21:57)
[2016-09-25] MEDS: LEVOTHYROXINE 112 MCG TAB PO SCH (05:47)
[2016-09-25 06:07] LABS: BASO % 0.1 %; BASO ABS # 0.01 K/uL (0-0.2); COMPLETE YES; EOS % 1.7 %; HEMATOCRIT 39.7 % (37-47); IG% 0.1 %; LYMPH % 23.2 %; MEAN CELL VOLUME 96.1 fL (80-100); MEAN CORPUSCULAR HEMOGLOBIN 31.7 pg (25-34); MEAN PLATELET VOLUME 12.6 fL (7.4-10.4); NEUT % 66.9 %; PLATELET COUNT 190 K/uL (130-400); RED BLOOD COUNT 4.13 M/uL (4.2-5.4); WHITE BLOOD COUNT 7.76 K/uL (4.8-10.8)
[2016-09-25 06:38] LABS: CALCIUM 8.3 mg/dl (8.5-10.1); CREATININE 0.98 mg/dl (0.60-1.20); MAGNESIUM 2.3 mg/dl (1.8-2.4); POTASSIUM 4.2 mmol/L (3.5-5.1)
[2016-09-25 06:47] LABS: ALB/GLOB RATIO 0.9 (0.9-2); CHOLESTEROL/HDL RATIO 3.2; THYROID STIMULATING HORMONE 2.54 uIu/ml (0.300-4.500)
[2016-09-25 07:10] VITALS: BP 169/81; PULSE 69; TEMP 36.3; O2SAT 94
[2016-09-25] MEDS ORDERED: SODIUM CHLORIDE 0.65% NA SOLN 45 ML (OCEAN) ONE ×2 (08:00→12:56)
[2016-09-25] MEDS: PANTOprazole SOD 40 MG TAB PO SCH (10:08)
[2016-09-25] MEDS: LOSARTAN POTASSIUM 25 MG TAB PO SCH (10:08)
[2016-09-25] MEDS: ONDANSETRON INJ 2 MG/ML 2 ML VIAL IV PRN (10:10)
[2016-09-25] MEDS: MECLIZINE HCL 25 MG TAB PO SCH ×3 (10:12→20:13)
[2016-09-25] MEDS: ANORO ELLIPTA~ORDER AWAITING ACTION SCH ×2 (12:18→16:00)
[2016-09-25] MEDS: OXYMETAZOLINE HCL 0.05% NA SPR 15 ML BTL SCH ×2 (13:00→20:13)
[2016-09-25] MEDS ORDERED: NURSING VERBAL MED ORDER ONE (13:00)
[2016-09-25 15:33] VITALS: BP 160/79; PULSE 71; TEMP 37; O2SAT 93
[2016-09-25 16:15] VITALS: O2SAT 93
[2016-09-25] MEDS: SODIUM CHLORIDE 0.65% NA SOLN 45 ML (OCEAN) SCH ×2 (16:23→20:13)
--- NOTE | 2016-09-25 19:08 | Progress Note ---
Subjective Date of Service: Sep 25, 2016. Subjective Pt evaluation today including: conversation w/ patient, conversation w/ family , physical exam, lab review, review of studies Problem List Medical Problems: (1) Acute chest pain Status: Acute (2) Acute sinusitis Status: Acute (3) Altered mental status Status: Acute (4) Vomiting Status: Acute Review of Systems Constitutional: No chills, No fatigue, No fever, No problem reported, No see HPI, No sweats, No weakness, No weight loss Eyes: No diplopia, No discharge, No eye pain, No problem reported, No redness, No see HPI, No worsening of vision ENT: No dental problems, No hearing loss, No nasal symptoms, No problem reported, No see HPI, No sore throat, No tinnitus, No trouble swallowing, No unusual epistaxis Respiratory: No cough, No dyspnea at rest, No dyspnea on exertion, No hemoptysis, No problem reported, No see HPI, No shortness of breath, No sputum, No wheezing Cardiac: No PND, No chest pain, No claudication, No edema, No orthopnea, No palpitations, No problem reported, No see HPI Abdomen: + nausea, + vomiting, No GI bleeding, No constipation, No diarrhea, No pain, No problem reported, No see HPI Musculoskeletal: No calf pain, No joint pain, No muscle pain, No problem reported, No see HPI, No swelling Neurologic: + vertigo, No balance problems, No memory loss, No numbness/ tingling, No paralysis, No problem reported, No see HPI, No weakness Psychiatric: No anhedonism, No anxiety, No depression symptoms, No insomnia, No problem reported, No see HPI, No substance abuse Heme: No abnormal bleeding/bruising, No clotting problems, No night sweats, No problem reported, No see HPI, No swollen lymph nodes Endo: No excessive thirst, No excessive urination, No fatigue, No problem reported, No see HPI Skin: No bleeding, No color change, No itch, No new/changing skin lesions, No problem reported, No rash, No see HPI Objective Vital Signs Date Time Temp Pulse Resp B/P Pulse Ox O2 Delivery O2 Flow Rate FiO2 09/25/16 16:15 93 Room Air 09/25/16 15:33 37.0 71 18 160/79 93 Room Air 09/25/16 12:00 Room Air 09/25/16 07:10 36.3 69 18 169/81 94 Room Air 09/25/16 00:01 36.7 63 18 146/81 94 Room Air 09/25/16 00:00 Room Air Physical Exam General Appearance: no apparent distress Eyes: normal inspection, PERRL, EOMI ENT: normal ENT inspection Neck: supple Respiratory/Chest: chest non-tender, + decreased breath sounds, + crackles, + rales Cardiovascular: regular rate, rhythm, no edema, no gallop, no JVD, no murmur Abdomen: non tender, soft, no organomegaly Extremities: normal range of motion, non-tender Neurologic/Psychiatric: radio 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 II-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 tested, no motor/sensory deficits, alert, normal mood/affect, oriented x 3 Skin: normal color, warm/dry, no rash Laboratory Results Last 24 Hours Test 09/25/16 05:15 White Blood Count 7.76 K/uL Red Blood Count 4.13 M/uL Hemoglobin 13.1 g/dL Hematocrit 39.7 % Mean Corpuscular Volume 96.1 fL Mean Corpuscular Hemoglobin 31.7 pg Mean Corpuscular Hemoglobin Concent 33.0 g/dl Platelet Count 190 K/uL Mean Platelet Volume 12.6 fL Neutrophils (%) (Auto) 66.9 % Lymphocytes (%) (Auto) 23.2 % Monocytes (%) (Auto) 8.0 % Eosinophils (%) (Auto) 1.7 % Basophils (%) (Auto) 0.1 % Neutrophils # (Auto) 5.19 K/uL Lymphocytes # (Auto) 1.80 K/uL Monocytes # (Auto) 0.62 K/uL Eosinophils # (Auto) 0.13 K/uL Basophils # (Auto) 0.01 K/uL RDW Standard Deviation 48.2 fL RDW Coefficient of Variation 13.7 % Immature Granulocyte % (Auto) 0.1 % Immature Granulocyte # (Auto) 0.01 K/uL Sodium Level 147 mmol/L Potassium Level 4.2 mmol/L Chloride Level 112 mmol/L Carbon Dioxide Level 28 mmol/L Anion Gap 7.0 mmol/L Blood Urea Nitrogen 22 mg/dl Creatinine 0.98 mg/dl Est Creatinine Clear Calc Drug Dose 60.0 ml/min Estimated GFR () 67.3 Estimated GFR (Non- 58.0 BUN/Creatinine Ratio 22.0 Random Glucose 97 mg/dl Calcium Level 8.3 mg/dl Magnesium Level 2.3 mg/dl Total Bilirubin 0.3 mg/dl Aspartate Amino Transf (AST/SGOT) 11 U/L Alanine Aminotransferase (ALT/SGPT) 23 U/L Alkaline Phosphatase 57 U/L Total Protein 6.3 gm/dl Albumin 2.9 gm/dl Globulin 3.4 gm/dl Albumin/Globulin Ratio 0.9 Triglycerides Level 103 mg/dl Cholesterol Level 167 mg/dl HDL Cholesterol 52 mg/dl LDL Cholesterol, Calculated 94 mg/dl VLDL Cholesterol, Calculated 21 mg/dl Cholesterol/HDL Ratio 3.2 Thyroid Stimulating Hormone (TSH) 2.540 uIu/ml Assessment and Plan 71 y/o F Hx HTN, hypothyroid - currently being treated for a sinus infection with Amoxicillin and Prednisone. presented with severe acute vertigo, nausea, vomiting 1) Acute vertigo / nausea / vomiting - possibly sinusitis which is confirmed on CT. As she improved very little I still couldn't perform Hellpike maneuver MRI showed no CVA continue Unasyn antiemetics as needed, 2) HTN - hold Losartan 3) Hypothyroid - cont Synthroid, check TSH 4) Hypernatremia, likely dehydration / NSS infusion will swicth IVF to 1/2NSS
[2016-09-25] MEDS: SODIUM CHLORIDE 0.45% 1000ML 1,000 ML IV SCH (20:17)
[2016-09-26 00:26] VITALS: BP 168/83; PULSE 59
[2016-09-26 00:42] VITALS: PULSE 59; TEMP 36.6; O2SAT 94
[2016-09-26] MEDS: AMPICILLIN/SULBACTAM SOD INJ 1,500 MG in SODIUM CHLORIDE 0.9% 100ML 100 ML IV SCH ×4 (03:54→21:48)
[2016-09-26] MEDS: LEVOTHYROXINE 112 MCG TAB PO SCH (05:52)
[2016-09-26] MEDS: HEPARIN SOD 5000 UNIT/0.5 ML CARP SQ SCH ×3 (05:55→21:53)
[2016-09-26 06:14] LABS: BASO % 0.5 %; BASO ABS # 0.03 K/uL (0-0.2); COMPLETE YES; EOS % 3.1 %; HEMATOCRIT 38.7 % (37-47); IG% 0.3 %; LYMPH % 33.1 %; LYMPH ABS # 2.16 K/uL (1.2-3.4); MEAN CELL VOLUME 94.9 fL (80-100); MEAN CORPUSCULAR HEMOGLOBIN 32.1 pg (25-34); MEAN CORPUSCULAR HGB CONC 33.9 g/dl (32-36); MEAN PLATELET VOLUME 12.4 fL (7.4-10.4); PLATELET COUNT 198 K/uL (130-400); RED BLOOD COUNT 4.08 M/uL (4.2-5.4); WHITE BLOOD COUNT 6.52 K/uL (4.8-10.8)
[2016-09-26 06:47] LABS: BUN/CREATININE RATIO 22.2 (10-20); CALCIUM 8.4 mg/dl (8.5-10.1); CREATININE 0.88 mg/dl (0.60-1.20); MAGNESIUM 2.1 mg/dl (1.8-2.4)
[2016-09-26 06:49] LABS: ALB/GLOB RATIO 0.9 (0.9-2); PHOSPHORUS 3.1 mg/dl (2.5-4.9)
[2016-09-26 07:03] LABS: ESTIMATED AVERAGE GLUCOSE 123 mg/dl; HA1C FLAG Normal (Normal)
[2016-09-26 07:57] VITALS: BP 150/85; PULSE 63; TEMP 36.6; O2SAT 95
[2016-09-26] MEDS: ANORO ELLIPTA~ORDER AWAITING ACTION SCH ×4 (08:00→21:54)
[2016-09-26] MEDS: MECLIZINE HCL 25 MG TAB PO SCH ×2 (08:27→21:47)
[2016-09-26] MEDS: PANTOprazole SOD 40 MG TAB PO SCH (08:27)
[2016-09-26] MEDS: SODIUM CHLORIDE 0.65% NA SOLN 45 ML (OCEAN) SCH ×4 (08:28→21:46)
[2016-09-26] MEDS: LOSARTAN POTASSIUM 25 MG TAB PO SCH (08:28)
[2016-09-26] MEDS: OXYMETAZOLINE HCL 0.05% NA SPR 15 ML BTL SCH ×2 (08:29→21:46)
[2016-09-26] MEDS: ONDANSETRON INJ 2 MG/ML 2 ML VIAL IV PRN (11:45)
--- NOTE | 2016-09-26 13:18 | Progress Note ---
Subjective Date of Service: Sep 26, 2016. Subjective Pt evaluation today including: conversation w/ patient, conversation w/ family Pt feels a bit improved. Ongoing headache, but improved with ongoing vertigo that is with slight improvement. She did tolerate a small amount of PO for breakfast, but stopped eating due to mild nausea. No emesis. She does feel that the nausea has improved. Pt denies fever, SOB, chest pain, abd pain, c/d, LE pain or swelling. ROS as noted above, otherwise neg. Problem List Medical Problems: (1) Acute chest pain Status: Acute (2) Acute sinusitis Status: Acute (3) Altered mental status Status: Acute (4) Vomiting Status: Acute Objective Vital Signs Date Time Temp Pulse Resp B/P Pulse Ox O2 Delivery O2 Flow Rate FiO2 09/26/16 08:30 Room Air 09/26/16 07:57 36.6 63 24 150/85 95 Room Air 09/26/16 00:42 36.6 59 20 94 Room Air 09/26/16 00:26 59 168/83 09/26/16 00:00 Room Air 09/25/16 16:15 93 Room Air 09/25/16 15:33 37.0 71 18 160/79 93 Room Air Physical Exam General Appearance: WD/WN, no apparent distress Respiratory/Chest: normal breath sounds, no respiratory distress Cardiovascular: regular rate, rhythm, no edema Abdomen: non tender, soft Extremities: non-tender, no pedal edema Neurologic/Psychiatric: alert, oriented x 3 Skin: normal color, warm/dry Laboratory Results Last 24 Hours Test 09/26/16 05:35 White Blood Count 6.52 K/uL Red Blood Count 4.08 M/uL Hemoglobin 13.1 g/dL Hematocrit 38.7 % Mean Corpuscular Volume 94.9 fL Mean Corpuscular Hemoglobin 32.1 pg Mean Corpuscular Hemoglobin Concent 33.9 g/dl Platelet Count 198 K/uL Mean Platelet Volume 12.4 fL Neutrophils (%) (Auto) 54.0 % Lymphocytes (%) (Auto) 33.1 % Monocytes (%) (Auto) 9.0 % Eosinophils (%) (Auto) 3.1 % Basophils (%) (Auto) 0.5 % Neutrophils # (Auto) 3.52 K/uL Lymphocytes # (Auto) 2.16 K/uL Monocytes # (Auto) 0.59 K/uL Eosinophils # (Auto) 0.20 K/uL Basophils # (Auto) 0.03 K/uL RDW Standard Deviation 46.2 fL RDW Coefficient of Variation 13.2 % Immature Granulocyte % (Auto) 0.3 % Immature Granulocyte # (Auto) 0.02 K/uL Sodium Level 145 mmol/L Potassium Level 4.0 mmol/L Chloride Level 107 mmol/L Carbon Dioxide Level 30 mmol/L Anion Gap 8.0 mmol/L Blood Urea Nitrogen 20 mg/dl Creatinine 0.88 mg/dl Est Creatinine Clear Calc Drug Dose 66.8 ml/min Estimated GFR () 76.6 Estimated GFR (Non- 66.1 BUN/Creatinine Ratio 22.2 Random Glucose 90 mg/dl Calcium Level 8.4 mg/dl Phosphorus Level 3.1 mg/dl Magnesium Level 2.1 mg/dl Total Bilirubin 0.4 mg/dl Aspartate Amino Transf (AST/SGOT) 11 U/L Alanine Aminotransferase (ALT/SGPT) 21 U/L Alkaline Phosphatase 54 U/L Total Protein 6.1 gm/dl Albumin 2.9 gm/dl Globulin 3.2 gm/dl Albumin/Globulin Ratio 0.9 Assessment and Plan 71 y/o F Hx HTN, hypothyroid - currently being treated for a sinus infection with Amoxicillin and Prednisone. presented with severe acute vertigo, nausea, vomiting 1) Acute vertigo / nausea / vomiting - Severe sinusitis noted on CT/MRI Some improvement s/p abx, IVF continue Unasyn antiemetics as needed May need t/c ENT c/s inpt vs outpt if no improvement 2) HTN - hold Losartan 3) Hypothyroid - cont Synthroid, TSH WNL 4) Hypernatremia, likely dehydration / NSS infusion will swicth IVF to 1/2NSS PT/OT
[2016-09-26 15:11] VITALS: BP 142/82; PULSE 68; TEMP 36.7; O2SAT 92
[2016-09-26] MEDS: SODIUM CHLORIDE 0.45% 1000ML 1,000 ML IV SCH (15:11)
[2016-09-26 23:27] VITALS: BP 157/85; PULSE 58; TEMP 36.6; O2SAT 96
[2016-09-27] MEDS: AMPICILLIN/SULBACTAM SOD INJ 1,500 MG in SODIUM CHLORIDE 0.9% 100ML 100 ML IV SCH ×4 (03:56→21:57)
[2016-09-27] MEDS: LEVOTHYROXINE 112 MCG TAB PO SCH (05:46)
[2016-09-27] MEDS: HEPARIN SOD 5000 UNIT/0.5 ML CARP SQ SCH ×3 (05:49→21:59)
[2016-09-27 06:19] LABS: HEMATOCRIT 39.1 % (37-47); MEAN CORPUSCULAR HEMOGLOBIN 32.2 pg (25-34); MEAN CORPUSCULAR HGB CONC 34.3 g/dl (32-36); MEAN PLATELET VOLUME 12.1 fL (7.4-10.4); PLATELET COUNT 209 K/uL (130-400); RED BLOOD COUNT 4.16 M/uL (4.2-5.4); WHITE BLOOD COUNT 5.63 K/uL (4.8-10.8)
[2016-09-27 07:28] VITALS: BP 164/82; PULSE 58; TEMP 36.9; O2SAT 93
[2016-09-27] MEDS: ANORO ELLIPTA~ORDER AWAITING ACTION SCH ×2 (08:00→15:59)
[2016-09-27] MEDS: MECLIZINE HCL 25 MG TAB PO SCH ×2 (08:22→20:03)
[2016-09-27] MEDS: LOSARTAN POTASSIUM 25 MG TAB PO SCH (08:22)
[2016-09-27] MEDS: PANTOprazole SOD 40 MG TAB PO SCH (08:22)
[2016-09-27] MEDS: OXYMETAZOLINE HCL 0.05% NA SPR 15 ML BTL SCH ×2 (08:23→20:02)
[2016-09-27] MEDS: SODIUM CHLORIDE 0.65% NA SOLN 45 ML (OCEAN) SCH ×4 (08:23→20:03)
[2016-09-27] MEDS: SODIUM CHLORIDE 0.45% 1000ML 1,000 ML IV SCH (11:04)
[2016-09-27 12:46] VITALS: BP 152/81; PULSE 82; TEMP 36.8; O2SAT 95
--- NOTE | 2016-09-27 13:19 | Progress Note ---
Subjective Date of Service: Sep 27, 2016. Subjective Pt evaluation today including: conversation w/ patient Pt feeling improved. Still with vertigo with ambulation, but less than prior and was able to tolerate PT/OT yesterday. Has been ambulating to the bathroom today, but still requiring assistance. Mild nausea and was able to tolerate breakfast today, which is the first full meal she has eaten. Pt denies fever, SOB, chest pain, abd pain, v/c/d, LE pain or swelling. ROS as noted above, otherwise neg. Problem List Medical Problems: (1) Acute chest pain Status: Acute (2) Acute sinusitis Status: Acute (3) Altered mental status Status: Acute (4) Vomiting Status: Acute Objective Vital Signs Date Time Temp Pulse Resp B/P Pulse Ox O2 Delivery O2 Flow Rate FiO2 09/27/16 12:46 36.8 82 20 152/81 95 Room Air 09/27/16 08:00 Room Air 09/27/16 07:28 36.9 58 20 164/82 93 Room Air 09/27/16 00:00 Room Air 09/26/16 23:27 36.6 58 20 157/85 96 Room Air 09/26/16 20:00 Room Air 09/26/16 16:43 Room Air 09/26/16 15:11 36.7 68 16 142/82 92 Room Air Physical Exam Comments: General Appearance: WD/WN, no apparent distress Respiratory/Chest: normal breath sounds, no respiratory distress Cardiovascular: regular rate, rhythm, no edema Abdomen: non tender, soft Extremities: non-tender, no pedal edema Neurologic/Psychiatric: alert, oriented x 3 Skin: normal color, warm/dry Laboratory Results Last 24 Hours Test 09/27/16 05:56 White Blood Count 5.63 K/uL Red Blood Count 4.16 M/uL Hemoglobin 13.4 g/dL Hematocrit 39.1 % Mean Corpuscular Volume 94.0 fL Mean Corpuscular Hemoglobin 32.2 pg Mean Corpuscular Hemoglobin Concent 34.3 g/dl RDW Standard Deviation 45.3 fL RDW Coefficient of Variation 13.1 % Platelet Count 209 K/uL Mean Platelet Volume 12.1 fL Assessment and Plan 71 y/o F Hx HTN, hypothyroid - currently being treated for a sinus infection with Amoxicillin and Prednisone. presented with severe acute vertigo, nausea, vomiting 1) Acute vertigo / nausea / vomiting - ongoing improvement Severe sinusitis noted on CT/MRI Some improvement s/p abx, IVF continue Unasyn antiemetics as needed May need t/c ENT c/s inpt vs outpt if no improvement 2) HTN - hold Losartan 3) Hypothyroid - cont Synthroid, TSH WNL 4) Hypernatremia, likely dehydration / NSS infusion will switch IVF to 1/2NSS PT/OT recs for home, pt is requiring assistance at times
[2016-09-27 15:36] VITALS: BP 179/73; PULSE 68; TEMP 36.5; O2SAT 94
[2016-09-27 23:12] VITALS: BP 143/80; PULSE 63; TEMP 36.7; O2SAT 93
[2016-09-28] MEDS: AMPICILLIN/SULBACTAM SOD INJ 1,500 MG in SODIUM CHLORIDE 0.9% 100ML 100 ML IV SCH (03:48)
[2016-09-28] MEDS: HEPARIN SOD 5000 UNIT/0.5 ML CARP SQ SCH (06:14)
[2016-09-28] MEDS: LEVOTHYROXINE 112 MCG TAB PO SCH (06:16)
[2016-09-28] MEDS: SODIUM CHLORIDE 0.45% 1000ML 1,000 ML IV SCH (06:19)
[2016-09-28 07:36] VITALS: BP 120/77; PULSE 61; TEMP 36.6; O2SAT 94
[2016-09-28] MEDS: ANORO ELLIPTA~ORDER AWAITING ACTION SCH ×2 (07:48)
[2016-09-28] MEDS: OXYMETAZOLINE HCL 0.05% NA SPR 15 ML BTL SCH (07:49)
[2016-09-28] MEDS: SODIUM CHLORIDE 0.65% NA SOLN 45 ML (OCEAN) SCH (07:49)
[2016-09-28] MEDS: LOSARTAN POTASSIUM 25 MG TAB PO SCH (07:50)
[2016-09-28] MEDS: MECLIZINE HCL 25 MG TAB PO SCH (07:50)
[2016-09-28] MEDS: PANTOprazole SOD 40 MG TAB PO SCH (07:51)
[2016-09-28] MEDS ORDERED: AFRIN (11:17)
[2016-09-28] MEDS ORDERED: SALI0.6510 (11:17)
[2016-09-28] MEDS ORDERED: AMOX875T PO (11:17)
[2016-09-28] MEDS ORDERED: ANT25 PO (11:17)
[2016-09-28] MEDS ORDERED: MISCCAP80 PO (11:17)
--- NOTE | 2016-09-28 11:19 | Discharge Instructions ---
Discharge Instructions Admission Reason for Admission: Acute Sinusitis,Vertigo Discharge Discharge Diagnosis / Problem: Acute sinusitis Discharge Goals Goal(s): Decrease discomfort, Improve function, Increase independence Activity Recommendations Activity Limitations: as noted below Driving or Machine Use: do not drive if you are becoming dizzy or lightheaded or requiring meclizine . Instructions / Follow-Up Instructions / Follow-Up ENT in 1 week if symptoms are worsening Current Hospital Diet Patient's current hospital diet: Regular Diet Discharge Diet Recommended Diet: Regular Diet Pending Studies Studies pending at discharge: no Laboratory Results Hemoglobin A1c Test 09/25/16 05:15 Range/Units Estimated Average Glucose 123 mg/dl Hemoglobin A1c 5.9 H 4.5-5.6 % Lipid Panel Test 09/25/16 05:15 Range/Units Triglycerides Level 103 0-150 mg/dl Cholesterol Level 167 0-200 mg/dl HDL Cholesterol 52 mg/dl Cholesterol/HDL Ratio 3.2 LDL Cholesterol, Calculated 94 mg/dl Medical Emergencies . Who to Call and When: Medical Emergencies: If at any time you feel your situation is an emergency, please call 911 immediately. . Non-Emergent Contact Non-Emergency issues call your: Primary Care Provider . . "Provider Documentation" section prepared by Sudha Sam. VTE Core Measure Inpt VTE Proph given/why not?: Unfractionated heparin SQ
--- NOTE | 2016-09-28 11:21 | Discharge Summary ---
Discharge Summary Admission Date: Sep 23, 2016 at 21:06 Discharge Date: Sep 28, 2016 Discharge Disposition: Home Principal Diagnosis: Acute sinusitis with intractable vertigo Problems/Secondary Diagnoses: HTN Hypothyroid Hx of uterine cancer GERD Immunizations: Have You Had Influenza Vaccine: Yes Influenza Vaccine Date: Jun 13, 2008 History of Tetanus Vaccine?: Unknown History of Pneumococcal: Yes Pneumococcal Date: Nov 23, 2011 History of Hepatitis B Vaccine: No Medication Reconciliation New Medications: Probiotic Product (Probiotic) 1 Cap Cap 1 CAP PO TID for 30 Days, #90 CAP Meclizine HCl (Meclizine HCl) 25 Mg Tab 25 MG PO BID, #20 TAB Oxymetazoline HCl (Afrin Nasal Sawyer) 75 Sprays/15 Ml Sawyer 1 SPRAYS NA BID for 30 Days, #1 SPRAY Saline (Reagan Nasal [place]) 0.65 % Spr 1 SPRAYS NA QID for 30 Days, #1 SPRAY Continued Medications: Amoxicillin & Pot Clavulanate (Augmentin 875-125 mg) 1 Tab Tab 1 TAB PO BID for 12 Days, #24 TAB (This prescription has been renewed) Biotin (Biotin 5000) 5 Mg Cap 1 CAP PO BID Ipratropium-Albuterol (Combivent Respimat) 1 Aer Aer 1 PUFF INH QID PRN for SOB/Wheezing, #4 Levothyroxine Sodium (Synthroid) 112 Mcg Tab 112 MCG PO QAM, TAB Losartan Potassium (Cozaar) 25 Mg Tab 25 MG PO QAM Multiple Vitamins W/ Minerals (Multivitamin Women 50+) 1 Tab Tab 1 TAB PO QAM Pantoprazole (Pantoprazole Sodium) 40 Mg Tab 40 MG PO QAM, #30 Umeclidinium-Vilanterol (Anoro Ellipta 62.5-25 Mcg/INH) 1 Aer Aer 1 PUFF INH QAM Discontinued Medications: Prednisone (Prednisone) 10 Mg Tab 10 MG PO DIRECTED, #31 TAB 40 mg daily for 4 days, 30 mg daily for 3 days, 20 mg daily for 2 days, 10 mg daily for 2 days Discharge Exam Pt feeling much improved. Still with a bit of dizziness with ambulation, but not much. Has tolerated PO without issue. Pt denies fever, SOB, chest pain, abd pain, n/v, LE pain or swelling. Did note some diarrhea today. ROS as noted above, otherwise neg. Physical Exam: General Appearance: WD/WN, no apparent distress Respiratory/Chest: normal breath sounds, no respiratory distress Cardiovascular: regular rate, rhythm, no edema Abdomen / GI: non tender, soft Extremities: no calf tenderness, no pedal edema Neurologic/Psychiatric: alert, normal mood/affect Skin: normal color, warm/dry Hospital Course 71 y/o F Hx HTN, hypothyroid - currently being treated for a sinus infection with Amoxicillin and Prednisone. presented with severe acute vertigo, nausea, vomiting 1) Acute vertigo / nausea / vomiting - ongoing improvement Severe sinusitis noted on CT/MRI Much improvement s/p abx, IVF Unasyn -> augmentin antiemetics as needed Advised to take meclizine BID scheduled until she is 24 hrs w/o dizziness and can then go to PRN Adding probiotics for abx related diarrhea 2) HTN - hold Losartan 3) Hypothyroid - cont Synthroid, TSH WNL 4) Hypernatremia, likely dehydration and improved s/p IVF PT/OT recs for home, pt is requiring assistance at times but overall stable and with good support from Total Time Spent: Greater than 30 minutes This includes examination of the patient, discharge planning, medication reconciliation, and communication with other providers. Discharge Instructions Please refer to the electronic Patient Visit Report (Discharge Instructions) for additional information. Follow-Up ENT in 1 week if sx worsen Additional Copies To Candace Cohn DO
[2016-09-28 11:32] VITALS: BP 120/77; PULSE 61; TEMP 36.6; O2SAT 94
[2016-09-28] MEDS ORDERED: LACTOBACILLUS ACIDOPHILUS (FLORANEX) TAB PO SCH (12:00)
[2016-09-28] MEDS ORDERED: AMOXICILLIN/CLAVULANATE TAB 875 MG TAB PO SCH (17:00)
== END 2016-09-28 12:12 | disposition home or self-care (01) | DRG 153 ==
LOC: ENRESERVTM → ENRESERVDT → EDBD 16:49 → C.EDB 16:50 → OBSVTOIN 21:06 → C.4E 21:06
PROVIDERS: ADMIT Internal Medicine; ATTEND Family Medicine
DX: J01.00 Acute maxillary sinusitis, unspecified (principal); E87.0 Hyperosmolality and hypernatremia; R42 Dizziness and giddiness; K21.9 Gastro-esophageal reflux disease without esophagitis; I10 Essential (primary) hypertension; E03.9 Hypothyroidism, unspecified; Z79.899 Other long term (current) drug therapy; Z85.42 Personal history of malignant neoplasm of other parts of uterus; Z90.710 Acquired absence of both cervix and uterus

== ENCOUNTER → 2017-01-23 | Outpatient (CLI) | payer BC ==
[~2017-01-23] MED LIST changes: +AFRIN; +AMOX875T PO; +ANT25 PO; +MISCCAP80 PO; +PANT40TA2 PO; -PRT/40 PO; +SALI0.6510
[2017-01-23 09:34] LABS: HEMATOCRIT 43.6 % (37-47); MEAN CELL VOLUME 97.3 fL (80-100); MEAN CORPUSCULAR HEMOGLOBIN 32.1 pg (25-34); MEAN PLATELET VOLUME 12.8 fL (7.4-10.4); PLATELET COUNT 193 K/uL (130-400); RED BLOOD COUNT 4.48 M/uL (4.2-5.4); WHITE BLOOD COUNT 4.98 K/uL (4.8-10.8)
[2017-01-23 09:53] LABS: ALT/SGPT 28 U/L (12-78); BLOOD UREA NITROGEN 18 mg/dl (7-18); CARBON DIOXIDE 29 mmol/L (21-32); CHLORIDE 107 mmol/L (98-107); CHOLESTEROL 204 mg/dl (0-200); GLUCOSE 105 mg/dl (70-99); POTASSIUM 4.3 mmol/L (3.5-5.1); SODIUM 142 mmol/L (136-145); TRIGLYCERIDES 149 mg/dl (0-150); VERY LOW DENSITY LIPOPROT CALC 30 mg/dl
[2017-01-23 09:56] LABS: CALCIUM 8.9 mg/dl (8.5-10.1)
[2017-01-23 10:03] LABS: ALB/GLOB RATIO 1.1 (0.9-2); ALKALINE PHOSPHATASE 80 U/L (45-117); AST/SGOT 15 U/L (15-37); BUN/CREATININE RATIO 20.8 (10-20); CHOLESTEROL/HDL RATIO 4.2; CREATININE 0.88 mg/dl (0.60-1.20); HDL CHOLESTEROL 49 mg/dl; LDL CHOLESTEROL CALCULATED 125 mg/dl
[2017-01-23 10:19] LABS: ESTIMATED AVERAGE GLUCOSE 120 mg/dl; HA1C FLAG Normal (Normal)
--- NOTE | 2017-01-27 11:22 | CODING QUERY MEDICAL NECESSITY ---
SUPPORTING DIAGNOSIS NEEDED Dr. Cohn, A supporting diagnosis is required for the test/procedure performed on this patient in order for us to be reimbursed by the patient's insurance. Please provide a supporting diagnosis for the following test/procedure listed below next to the test name along with your signature. *If there is no additional diagnosis for this patient that would support the following test/procedure please document that below next to the test/procedure. Test(s)/Procedure(s) that require a supporting diagnosis: * [id number] GLYCATED HEMOGLOBIN DIAGNOSIS: DATE OF SERVICE: 01/23/17 Provider Signature: Date: Thank you Presley Larose [facility] Information Management Once completed, please kindly fax back to [phone] For questions please call [phone]
== END | disposition home or self-care (01) ==
LOC: C.LAB 07:30
PROVIDERS: ATTEND Family Medicine
DX: E03.9 Hypothyroidism, unspecified (principal); E78.5 Hyperlipidemia, unspecified; J44.9 Chronic obstructive pulmonary disease, unspecified; I10 Essential (primary) hypertension; R73.03 Prediabetes

== ENCOUNTER → 2017-03-31 | Outpatient (CLI) | payer BC ==
[~2017-03-31] MED LIST changes: -PANT40TA2 PO; +PRT/40 PO
--- NOTE | 2017-03-31 08:09 | MAMMOGRAPHY REPORT ---
BILATERAL DIGITAL SCREENING MAMMOGRAM WITH CAD: 03/31/2017 CLINICAL HISTORY: Routine screening. Patient has no complaints. TECHNIQUE: Current study was also evaluated with a Computer Aided Detection (CAD) system. Bilateral CC and MLO views were obtained. COMPARISON: Comparison is made to exams dated: 03/29/2016 mammogram, 03/24/2015 mammogram, 03/19/2014 m ammogram, 03/18/2013 mammogram, 03/14/2012 mammogram, and 03/14/2011 mammogram - [facility] enter. BREAST COMPOSITION: There are scattered areas of fibroglandular density in both breasts. FINDINGS: No suspicious masses, calcifications, or areas of architectural distortion are noted in ei ther breast. There has been no significant interval change compared to prior exams. Scattered bilater al benign-appearing calcifications are not significantly changed. IMPRESSION: ACR BI-RADS CATEGORY 2: BENIGN There is no mammographic evidence of malignancy. A 1 year screening mammogram is recommended. The pa tient will receive written notification of the results. Approximately 10% of breast cancers are not detected with mammography. A negative mammographic report should not delay biopsy if a clinically suggestive mass is present. Milana Jose M.D. ah/:03/31/2017 07:47:17 Photographer'S Assistant: Mahi SHEA(Doug)(M), [facility] letter sent: Normal 1/2 BI-RADS Code: ACR BI-RADS Category 2: Benign
== END | disposition home or self-care (01) ==
LOC: C.MAMM 07:18
PROVIDERS: ATTEND Nurse Practitioner Family
DX: Z12.31 Encounter for screening mammogram for malignant neoplasm of breast (principal)

== ENCOUNTER → 2017-08-09 | Outpatient (CLI) | payer BC ==
[~2017-08-09] MED LIST changes: +PANT40TA2 PO; -PRT/40 PO
[2017-08-09 10:11] LABS: BASO % 0.2 %; BASO ABS # 0.01 K/uL (0-0.2); COMPLETE YES; EOS % 3.5 %; HEMATOCRIT 41.6 % (37-47); IG% 0.2 %; LYMPH % 32.2 %; LYMPH ABS # 1.38 K/uL (1.2-3.4); MEAN CELL VOLUME 95.6 fL (80-100); MEAN CORPUSCULAR HEMOGLOBIN 32.2 pg (25-34); MEAN CORPUSCULAR HGB CONC 33.7 g/dl (32-36); MEAN PLATELET VOLUME 12.8 fL (7.4-10.4); MONO % 10.5 %; NEUT % 53.4 %; PLATELET COUNT 185 K/uL (130-400); RED BLOOD COUNT 4.35 M/uL (4.2-5.4); WHITE BLOOD COUNT 4.28 K/uL (4.8-10.8)
[2017-08-09 10:19] LABS: ESTIMATED AVERAGE GLUCOSE 123 mg/dl; HA1C FLAG Normal (Normal)
[2017-08-09 10:47] LABS: ALT/SGPT 32 U/L (12-78); AST/SGOT 19 U/L (15-37); BLOOD UREA NITROGEN 18 mg/dl (7-18); BUN/CREATININE RATIO 21.5 (10-20); CALCIUM 8.4 mg/dl (8.5-10.1); CARBON DIOXIDE 28 mmol/L (21-32); CHLORIDE 107 mmol/L (98-107); CREATININE 0.82 mg/dl (0.60-1.20); GLUCOSE 98 mg/dl (70-99); POTASSIUM 4.2 mmol/L (3.5-5.1); SODIUM 139 mmol/L (136-145)
[2017-08-09 10:58] LABS: ALKALINE PHOSPHATASE 64 U/L (45-117); CHOLESTEROL 206 mg/dl (0-200); CHOLESTEROL/HDL RATIO 3.6; HDL CHOLESTEROL 58 mg/dl; LDL CHOLESTEROL CALCULATED 125 mg/dl; TRIGLYCERIDES 114 mg/dl (0-150); VERY LOW DENSITY LIPOPROT CALC 23 mg/dl
== END | disposition home or self-care (01) ==
LOC: C.LAB 09:00
PROVIDERS: ATTEND Nurse Practitioner Family
DX: E03.9 Hypothyroidism, unspecified (principal); E78.5 Hyperlipidemia, unspecified; K21.9 Gastro-esophageal reflux disease without esophagitis; J44.9 Chronic obstructive pulmonary disease, unspecified; I10 Essential (primary) hypertension; R73.03 Prediabetes

== ENCOUNTER 2019-09-30 23:01 | Inpatient (IN) ==
[2019-09-30] MEDS ORDERED: RAPID SEQUENCE INDUCTION BAG ONE (23:06)
[2019-09-30] MEDS ORDERED: ONDANSETRON INJ 2 MG/ML 2 ML VIAL ONE (23:08)
[2019-09-30 23:26] LABS: Basophils # (auto) 0.01 K/uL (0-0.2); Basophils % (auto) 0.1 %; Eosinophils # (auto) 0.12 K/uL (0-0.5); Eosinophils % (auto) 0.8 %; Hematocrit (blood only) 43.1 % (37-47); Hemoglobin 14.6 g/dL (12.0-16.0); Immature Granulocytes # (auto) 0.04 K/uL (0.00-0.02); Immature Granulocytes % (auto) 0.3 %; Lymphocytes # (auto) 0.84 K/uL (1.2-3.4); Lymphocytes % (auto) 5.5 %; Mean Corpuscular Hemoglobin 32.5 pg (25-34); Mean Corpuscular Hgb Conc 33.9 g/dL (32-36); Mean Platelet Volume 12.1 fL (7.4-10.4); Monocytes % (auto) 9.2 %; Neutrophils # (auto) 12.81 K/uL (1.4-6.5); Neutrophils % (auto) 84.1 %; Platelet Count 174 K/uL (130-400); RDW Coefficient of Variation 13.8 % (11.5-14.5); RDW Standard Deviation 48.7 fL (36.4-46.3); Red Blood Count 4.49 M/uL (4.2-5.4); White Blood Count 15.22 K/uL (4.8-10.8)
[2019-09-30 23:45] LABS: Alanine Aminotransferase 30 U/L (12-78); Albumin Level 3.6 gm/dl (3.4-5.0); Aspartate Aminotransferase 15 U/L (15-37); BUN Creatinine Ratio 26.9 (10-20); Bilirubin Direct < 0.1 mg/dl (0-0.2); Blood Urea Nitrogen 26 mg/dl (7-18); Calcium 8.5 mg/dl (8.5-10.1); Carbon Dioxide 26 mmol/L (21-32); Chloride 107 mmol/L (98-107); Est GFR (African American) 66.7; Est GFR (Non-African American) 57.5; Glucose 147 mg/dl (70-99); Lipase 128 U/L (73-393); Magnesium 1.7 mg/dl (1.8-2.4); Potassium 3.9 mmol/L (3.5-5.1); Sodium 140 mmol/L (136-145)
[2019-09-30] MEDS ORDERED: ONDANSETRON INJ 2 MG/ML 2 ML VIAL IV STA (23:55)
[2019-09-30 23:56] LABS: Alkaline Phosphatase 61 U/L (45-117); Bilirubin,Total 0.4 mg/dl (0.2-1); Total Protein 7.3 gm/dl (6.4-8.2); Troponin I < 0.015 ng/ml (0-0.045)
[2019-09-30 23:57] LABS: Prothrombin Time 10.6 Seconds (9.0-12.0)
[2019-10-01 00:16] LABS: Appearance Urine Clear (Clear); Bilirubin Urine Negative (Negative); Blood Urine Negative (Negative); Color Urine Yellow; Glucose Urine UA Negative (Negative); Ketones Urine Negative (Negative); Leukocyte Esterase Urine Negative (Negative); Nitrite Urine Negative (Negative); Protein Urine Negative (Negative); Specific Gravity Urine 1.025 (1.000-1.030); Urobilinogen Urine Negative (Negative)
--- NOTE | 2019-10-01 01:50 | History & Physical Report ---
Date of Service October 01, 2019 Assessment & Plan (1) Asystole: Cyn Modi is a 74 y/o female with a past medical history of COPD, esophageal reflux, hyperlipidemia, hypertension, hypothyroidism and prediabetes with asystole here in ED during active emesis. Assume that this was most likely caused by vagal outflow triggered from emesis as she did not require any medicinal intervention and was brief. She did get CPR chest compressions for about 10 seconds. Admission to monitor with cardiac monitoring. Plan is to treat nausea prior to emesis with Zofran 4mg IV q4h. Even though I believe this to be vagal outflow related, she does require workup to ensure non-cardiac causes such as underlying CHF potentially putting her at risk for fatal arrhythmia. Will consult cardiology and will order TTE. Admit for cardiac monitoring Currently hemodynamically stable Will continue to trend troponins. UA negative for infection Code: Full Code FENGI: Full liquid since vomiting/diarrheal illness, advance as tolerated DVT ppx: Lovenox 40mg subq q24h Dispo: Full Admit, PCU/Tele for cardiac monitoring (2) Vomiting: - No active vomiting s/p Zofran 4mg IV here in ED - Aspiration precautions since vomiting here - Only electrolyte abnormalities are slightly decreased Mag and will replace x1gm of Mag IV (3) Syncope: - During asystole, possible contributor of vagal outflow - Again, cardiology consult with TTE in AM (4) Prediabetes: - Previous A1C from review of EMR = 6.0% performed one year ago - Will repeat A1C to make sure not actively diabetic without active treatment. (5) Hypothyroidism: - continue with home levothyroxine 112mcg daily (6) Hypertension: - continue with home Losartan 25mg PO daily (7) Gastro-esophageal reflux: - continue with home PPI 40mg daily (8) Chronic obstructive pulmonary disease, unspecified: - currently requiring supplemental O2 at 3L - continue supplemental O2 as needed - continue with home ipratropium bromide 42mcg 2 sprays intranasal TID - Duonebs PRN for dyspnea (9) Hypomagnesemia: Mag 1.7 here in ED Will replace with Mag 1gm IV x1 bag Recheck in AM (10) Hyperlipidemia: Noted in past medical history, not currently on any medication Will check Lipid profile for underlying contributor to possible cardiac disease (11) Leukocytosis: - value of 15.22 in ED - either viral gastroenteritis cause or neutrophilic demargination from stress response to vomiting/diarrhea/acute illness. - trend History of Present Illness Chief Complaint: Asystole Primary Care Provider: Andrew Ramirez III, CRNP Cyn Modi is a 74 y/o female with a past medical history of COPD, esophageal reflux, hyperlipidemia, hypertension, hypothyroidism and prediabetes who was brought to [facility] ED for nausea/vomiting/diarrhea. She notes onset of illness today. She notes she has had "lots" of episodes of vomiting and "lots" of episodes of diarrhea starting earlier today. She notes no black/blood in stool or bloody/blood tinged emesis. She notes she was in usual state of health yesterday. No recent antibiotics, travel, zoroastrianism cookouts, eating reheated rice or any other potentially spoiled foods. No other sick contacts with similar. She was being treated here in the ED when during active emesis, she became unresponsive and had about 10 seconds of aystole on electronic device monitor. CPR was started with chest compressions only and event only lasted about 10 seconds and resolved without medication. Patient currently denies any chest pain, active nausea after being treated with Zofran 4mg IV x1. She notes abdominal cramping earlier in the day but none currently. Currently in ED, she is drowsy but arouses to voice and opens eyes to gentle physical stimuli. Denies any recent cough/colds and has received annual influenza vaccination. Allergies Allergy/AdvReac Type Severity Reaction Status Date / Time morphine Allergy Mild itching Verified 09/30/19 23:53 Home Medications Home Medications Medication Instructions Recorded Confirmed Type pantoprazole 40 mg tablet,delayed 40 mg PO DAILY #30 tab 05/14/19 09/30/19 Rx release losartan 25 mg tablet 25 mg PO DAILY #30 tab 05/15/19 09/30/19 Rx levothyroxine 112 mcg tablet 112 mcg PO QAM #30 tab 06/06/19 09/30/19 Rx ipratropium bromide 42 mcg (0.06 2 sprays INTNAS TID #15 ml 06/12/19 09/30/19 Rx %) nasal spray montelukast 10 mg tablet 10 mg PO DAILY #90 tab 08/10/19 09/30/19 Rx Past Med/Surg History Social History Preferred Language: French Communication Ability: Effective Recruiting Administrator Required: No Beliefs That Will Affect Care: None Current Living Situation: Spouse current occupational status: retired Other Information That Helps Us Care for You: No Feels Safe at Home: Yes Safety Concerns: Feels Safe At This Time Smoking Status: Never smoker Hx Alcohol Use: No Hx Substance Use: No Dental Care, Regularly: Yes Review of Systems Review of Systems: All systems reviewed & are unremarkable except as noted in HPI & below Physical Exam Constitutional: WD/WN, vitals as above + obese drowsy but arouses to voice and opens eyes to gentle physical stimuli. Eyes: PERRL, conjunctivae normal, anicteric sclerae ENMT: external ear and nose normal, oropharynx normal Neck: normal visual inspection and trachea midline Respiratory: normal respiratory effort; no respiratory distress Auscultation: + wheezes (expiratory diffuse); no crackles Cardiovascular: Rate/Rhythm: regular rate and regular rhythm Extremities: + edema (2+ pitting to distal half of bilateral legs) Gastrointestinal (Abdomen): Inspection/Auscultation: normal bowel sounds Percussion/Palpation: abdomen soft; abdomen nontender, no guarding and abdomen not rigid Musculoskeletal: Head/Neck/Chest: normocephalic and head atraumatic Skin: no rashes, warm and dry Neurologic: moves all extremities; no focal motor deficits Psychiatric: Orientation: oriented x 3 drowsy Genitourinary: urinary stauffer in place Results & Data Vital Signs (Past 12 Hours) Vital Signs Temp Pulse Pulse Resp BP BP Pulse Ox 10/01/19 00:51 78 20 155/72 H 98 10/01/19 00:21 81 20 145/66 H 99 09/30/19 23:58 36.8 C 09/30/19 23:53 85 18 150/75 H 98 09/30/19 23:11 36.5 C 69 18 202/74 H 100 Laboratory Results Laboratory Results - last 24 hr 09/30/19 09/30/19 09/30/19 23:15 23:15 23:15 WBC 15.22 H RBC 4.49 Hgb 14.6 Hct 43.1 MCV 96.0 MCH 32.5 MCHC 33.9 RDW Std Deviation 48.7 H RDW Coeff of Ruben 13.8 Plt Count 174 MPV 12.1 H Immature Gran % (Auto) 0.3 Neut % (Auto) 84.1 Lymph % (Auto) 5.5 [place] % (Auto) 9.2 Eos % (Auto) 0.8 Baso % (Auto) 0.1 Immature Gran # (Auto) 0.04 H Neut # (Auto) 12.81 H Lymph # (Auto) 0.84 L [place] # (Auto) 1.40 H Eos # (Auto) 0.12 Baso # (Auto) 0.01 PT 10.6 INR 1.0 Sodium 140 Potassium 3.9 Chloride 107 Carbon Dioxide 26 Anion Gap 7.0 BUN 26 H Creatinine 0.97 Est Cr Clr Drug Dosing 53.0 Est GFR ( Amer) 66.7 Est GFR (Non-Af Amer) 57.5 BUN/Creatinine Ratio 26.9 H Glucose 147 H Calcium 8.5 Magnesium 1.7 L Total Bilirubin 0.4 Direct Bilirubin < 0.1 AST 15 ALT 30 Alkaline Phosphatase 61 Troponin I < 0.015 Total Protein 7.3 Albumin 3.6 Lipase 128 TSH 3.240 Urine Color Urine Appearance Urine pH Ur Specific [place] Urine Protein Urine Glucose (UA) Urine Ketones Urine Blood Urine Nitrite Urine Bilirubin Urine Urobilinogen Ur Leukocyte Esterase 09/30/19 23:30 WBC RBC Hgb Hct MCV MCH MCHC RDW Std Deviation RDW Coeff of Ruben Plt Count MPV Immature Gran % (Auto) Neut % (Auto) Lymph % (Auto) [place] % (Auto) Eos % (Auto) Baso % (Auto) Immature Gran # (Auto) Neut # (Auto) Lymph # (Auto) [place] # (Auto) Eos # (Auto) Baso # (Auto) PT INR Sodium Potassium Chloride Carbon Dioxide Anion Gap BUN Creatinine Est Cr Clr Drug Dosing Est GFR ( Amer) Est GFR (Non-Af Amer) BUN/Creatinine Ratio Glucose Calcium Magnesium Total Bilirubin Direct Bilirubin AST ALT Alkaline Phosphatase Troponin I Total Protein Albumin Lipase TSH Urine Color Yellow Urine Appearance Clear Urine pH 5.0 Ur Specific [place] 1.025 Urine Protein Negative Urine Glucose (UA) Negative Urine Ketones Negative Urine Blood Negative Urine Nitrite Negative Urine Bilirubin Negative Urine Urobilinogen Negative Ur Leukocyte Esterase Negative Diagnostic Findings CXR and Head CT performed here in ED, no current interpretation I reviewed both and did not see any acute process. Poor inspiration on CXR. Medications Administered Ondansetron HCl (Zofran) 4 mg IV NOW STA Stop: 01/27/20 23:56 Last Admin: 09/30/19 23:56 Dose: Not Given Documented by: [id number] Code Status & VTE Plan Code Status Full Code VTE Prophylaxis Plan VTE Prophylaxis will be ordered: Yes Supervising Physician Co-Signing Physician Notes Patient was seen and examined by me personally. I reviewed the chart, the orders and discussed the case in detail with Dr. Presley Spivey DO . I read this H&P and agree with its contents to entirety. Resident Activity Tracking Resident Involvement: Resident Care Provided Care Provided: Adult Hospital Medicine (1) Syncope Syncope type: unspecified Qualified Code(s): R55 - Syncope and collapse (2) Vomiting Nausea presence: with nausea Vomiting Intractability: unspecified Vomiting type: unspecified Qualified Code(s): R11.2 - Nausea with vomiting, unspecified
[2019-10-01] MEDS ORDERED: MAGNESIUM SULFATE / D5W 1 GM/100 ML BAG IV ONE (02:45)
[2019-10-01] MEDS ORDERED: ALUMINUM/MAGNESIUM SUSP 30 ML UDC PO PRN (02:45)
[2019-10-01] MEDS ORDERED: SODIUM CHLORIDE 0.9% 1000ML 1,000 ML IV SCH ×2 (02:45→11:00)
[2019-10-01] MEDS ORDERED: POLYETHYLENE (MIRALAX) 17 GM PACK PO PRN (02:45)
[2019-10-01] MEDS ORDERED: MAGNESIUM HYDROXIDE SUSP 30 ML UDC PO PRN (02:45)
[2019-10-01] MEDS: ONDANSETRON INJ 2 MG/ML 2 ML VIAL IV PRN ×2 (03:47→08:22)
--- NOTE | 2019-10-01 04:28 | Emergency Department Note ---
Entered by Anali Ag acting as a scribe for ED Provider Note Name: Cyn Modi Age: 70 Arrives Via: Ambulance Informant: Patient, , and EMS CC: Chest palpitations HPI: 70F arrives for evaluation of multiple syncope episodes that occurred prior to arrival. The patient's states that the patient was feeling fine throughout the day. The patient's relays that the patient ate dinner early and shortly after expressed that she was not feeling well. The patient's states that around 1800 - 1900 the patient started complaining of nausea and soon after vomited. The patient's informs that the patient vomited in the bathroom and when he went to check on her he found the patient disoriented on the floor. The patient's explains that he proceeded to clean the patient up but then she had a syncopal episode. The patient's states that EMS initially checked the patient and the patient expressed that she did not want to go to the hospital. The patient's states that shortly after the patient had another syncopal episode and EMS was called again. EMS informs that during the first syncope episode the patient fell forward and hit her forehead. EMS informs that upon arrival the patient vomited again and was not conscious. EMS confirms that the patient was in systole while unconsciousness. EMS reports that they did compressions and once the patient was resuscitated she was in in V TACH. EMS states that the patient had a glucose level of 127 during transport. EMS informs that the patient had a normal QTC with no depressions or elevations during transport. The patient expresses that she feels nauseous. The patient denies chest pain, abdominal pain, shortness of breath or headache. The patient confirms that she took her medication today. The patient's denies that the patient had a change in diet or medication lately. The patient's denies that the patient had shortness of breath or chest pain for the past few days. The patient denies a history of myocardial infarction and diabetes. ROS: See above HPI for pertinent positives & negatives. A total of 10 systems reviewed and were otherwise negative. Past Medical History:See Below Past Surgical History:Appendectomy and hysterectomy Family History:See Below Social History:See Below Home Medications:See Below Allergies:Morphine Vitals:BP 202/74, P 69, R 18, O2 100% on RA , Temp 36.5 C Physical Exam: GENERAL: Patient is tired appearing and periodically moaning. Vomit covering her chest. HEAD: Contusion over the right forehead. EYES: No scleral icterus, unremarkable pupils. ENT: Mucous membranes moist, no nasal congestion. NECK: No masses appreciated, nomeningismus, trachea is midline. RESPIRATORY: No dyspnea. Clear to auscultation and equal bilaterally. No wheeze, no rhonchi. CARDIOVASCULAR: Regular rate and rhythm.No murmurs, rubs, gallops appreciated. GASTROINTESTINAL: Abdomen soft, non-tender, no peritonitis.Bowel sounds positive.No masses appreciated. BACK: No midline tenderness, no CVA tenderness EXTREMITIES: Normal motion all extremities, no cyanosis, no edema. NEUROLOGIC: Eyes closed but open to command, no acute motor or sensory deficits, no focal weakness, cranial nerves grossly intact. GCS 14. SKIN: No rash, no jaundice, no diaphoresis. ED Course: Prior Medical Record, Triage/Nursing Notes, Medications, Allergies reviewed by Me Vital Signs: reviewed and remarkable for HTN Labs:Reviewed and remarkable for mild low Mag mild wbc elevation Interventions: saline lock, zofran 4mg IV, nss infusion Imaging:X ray results are stated below per my interpretation: Chest: 1 view: Hypoventilation with possible mild congestion EKG:Per My Interpretation: Indication AMS: NSR 68 bpm, qtc 438. No Ectopy. No Ischemia. Compared to EKG 09/23/16, no significant changes. Consults: 0049: I reviewed the patient's case with Dr. Zarco, [facility] Hospitalist. He will evaluate the patient for further management. 0235: I re-paged Dr. Zarco to make him aware EMS found rhythm strips which were concerning for prolonged asystoles followed by VTACH and Torsades. Reassessments/Times: 2259: Past medical records reviewed. The patient was evaluated in room B1. A complete history and physical exam was performed. 2300: Upon initial arrival the patient was hypertensive. 2310: I reassessed the patient and the blood pressure was normalized. The patient no longer is nauseous. 2322: I reassessed the patient who is slowly waking up. The patient denies chest pain, shortness of breath, abdominal pain and is otherwise feeling well. 2328: I reassessed that patient who remains stable. 2358: I reassessed the patient who is a little more somnolent, mild riggers, and denies symptoms. Daughter, and equipment worker at bedside. 0030: I reassessed the patient who is sleeping and in no distress. Vitals are stable. 0044: I requested that Dr. Zarco, [facility] Hospitalist be contacted for patient hospitalization. 0049: I reviewed the patient's case with Dr. Zarco, [facility] Hospitalist. He will evaluate the patient for further management. 0235: I re-paged Dr. Zarco to make him aware EMS found rhythm strips which were concerning for prolonged asystoles followed by VTACH and torsades. Blood pressure:Elevated - Referred to PCP - Further management by hospitalist. Disposition:Hospitalization Differentials: metabolic, infection, hypoglycemia, electrolyte abnormalities, cardiac sources, intracerebral event, toxicologic, neurologic, as well as others were entertained. Medical Decision Makin yr old female with history of COPD, Hypothyroid, DLP, HTN, DMII arrives following multiple syncopal events associated with vomiting. On arrival vomited and went unresponsive with no pulse for < 10 seconds and awoke with chest compressions. EKG with normal QTC and thus Zofran given. Following this no further nausea/vomiting nor syncopal events. CT head as forehead injury and AMS which was negative. CXR hypoventilation, no clear pneumonia, maybe mild congestion. Lungs are clear, abdomen soft, and neuro intact other than somnolent. Labs unremarkable other than mild low Mag. Review of rhythm from ems confirms asystole followed by vtach/torsades. She remained mildly somnolent, but maintaining airway without any complaints. WBC is mildly elevated though suspect this is stress response as no fevers and does not appear to have any clear infection other than the vomiting. Impression: Asystole Vomiting Syncope Altered Mental Status Critical Care Time: I have personally spent 35 minutes of critical care time in the direct management of this patient. Asystole with compressions in ED and rapid stabilization. This was a life/limb threatening event. This 35 minutes is in excess of all separately billable procedures. The scribe's documentation has been prepared under my direction and personally reviewed by me in its entirety. I confirm that the note above accurately reflects all work, treatment, procedures, and medical decision making performed by me. Darci Luna MD Impression & Plan Asystole, Vomiting, Syncope, AMS (altered mental status) Past Med/Surg History Social History Preferred Language: [place] Communication Ability: Effective Scroll Assembler Required: No Beliefs That Will Affect Care: None Current Living Situation: Spouse current occupational status: retired Other Information That Helps Us Care for You: No Feels Safe at Home: Yes Safety Concerns: Feels Safe At This Time Smoking Status: Never smoker Hx Alcohol Use: No Hx Substance Use: No Dental Care, Regularly: Yes Results & Data Vital Signs Vital Signs - 24 hr 09/30/19 23:11 09/30/19 23:19 09/30/19 23:53 Temperature 36.5 C Temperature Source Oral Pulse Rate 69 Pulse Rate [Right Finger] 85 Pulse Rhythm Regular Pulse Rhythm [Right Finger] Regular Pulse Strength Normal Pulse Strength [Right Finger] Normal Respiratory Rate 18 18 Respiratory Effort / Characteristics Spontaneous Non-Labored Spontaneous Respiratory Depth Normal Respiratory Pattern Regular Blood Pressure 202/74 H Blood Pressure [Right Arm] 150/75 H Blood Pressure Mean 116 Blood Pressure Mean [Right Arm] 100 Blood Pressure Position Sitting Blood Pressure Position [Right Arm] Sitting Pulse Oximetry 100 98 Oxygen Delivery Method Non-rebreather Non-rebreather Nasal Cannula Oxygen Flow Rate 15 15 3 Sepsis Recent Fever Within 48 Hours No Sepsis Action Taken by Nursing No Action Required 09/30/19 23:58 10/01/19 00:21 10/01/19 00:51 Temperature 36.8 C Temperature Source Oral Pulse Rate Pulse Rate [Right Finger] 81 78 Pulse Rhythm Pulse Rhythm [Right Finger] Regular Regular Pulse Strength Pulse Strength [Right Finger] Normal Normal Respiratory Rate 20 20 Respiratory Effort / Characteristics Non-Labored Spontaneous Non-Labored Spontaneous Respiratory Depth Normal Normal Respiratory Pattern Blood Pressure Blood Pressure [Right Arm] 145/66 H 155/72 H Blood Pressure Mean Blood Pressure Mean [Right Arm] 92 99 Blood Pressure Position Blood Pressure Position [Right Arm] Sitting Sitting Pulse Oximetry 99 98 Oxygen Delivery Method Nasal Cannula Nasal Cannula Oxygen Flow Rate 3 3 Sepsis Recent Fever Within 48 Hours Sepsis Action Taken by Nursing 10/01/19 01:54 Temperature Temperature Source Pulse Rate Pulse Rate [Right Finger] 78 Pulse Rhythm Pulse Rhythm [Right Finger] Regular Pulse Strength Pulse Strength [Right Finger] Normal Respiratory Rate 20 Respiratory Effort / Characteristics Non-Labored Spontaneous Respiratory Depth Normal Respiratory Pattern Blood Pressure Blood Pressure [Right Arm] 145/77 H Blood Pressure Mean Blood Pressure Mean [Right Arm] 99 Blood Pressure Position Blood Pressure Position [Right Arm] Pulse Oximetry 98 Oxygen Delivery Method Nasal Cannula Oxygen Flow Rate 3 Sepsis Recent Fever Within 48 Hours Sepsis Action Taken by Nursing Laboratory Data Result diagrams: 09/30/19 23:15 09/30/19 23:15 Lab Results 09/30/19 09/30/19 09/30/19 Range/Units 23:15 23:15 23:15 WBC 15.22 H (4.8-10.8) K/uL RBC 4.49 (4.2-5.4) M/uL Hgb 14.6 (12.0-16.0) g/dL Hct 43.1 (37-47) % MCV 96.0 (80-100) fL MCH 32.5 (25-34) pg MCHC 33.9 (32-36) g/dL RDW Std Deviation 48.7 H (36.4-46.3) fL RDW Coeff of Ruben 13.8 (11.5-14.5) % Plt Count 174 (130-400) K/uL MPV 12.1 H (7.4-10.4) fL Immature Gran % (Auto) 0.3 % Neut % (Auto) 84.1 % Lymph % (Auto) 5.5 % [place] % (Auto) 9.2 % Eos % (Auto) 0.8 % Baso % (Auto) 0.1 % Immature Gran # (Auto) 0.04 H (0.00-0.02) K/uL Neut # (Auto) 12.81 H (1.4-6.5) K/uL Lymph # (Auto) 0.84 L (1.2-3.4) K/uL [place] # (Auto) 1.40 H (0.11-0.59) K/uL Eos # (Auto) 0.12 (0-0.5) K/uL Baso # (Auto) 0.01 (0-0.2) K/uL PT 10.6 (9.0-12.0) Seconds INR 1.0 (0.9-1.1) Sodium 140 (136-145) mmol/L Potassium 3.9 (3.5-5.1) mmol/L Chloride 107 (98-107) mmol/L Carbon Dioxide 26 (21-32) mmol/L Anion Gap 7.0 (3-11) BUN 26 H (7-18) mg/dl Creatinine 0.97 (0.6-1.2) mg/dl Est Cr Clr Drug Dosing 53.0 ml/min Est GFR ( Amer) 66.7 Est GFR (Non-Af Amer) 57.5 BUN/Creatinine Ratio 26.9 H (10-20) Glucose 147 H (70-99) mg/dl Calcium 8.5 (8.5-10.1) mg/dl Magnesium 1.7 L (1.8-2.4) mg/dl Total Bilirubin 0.4 (0.2-1) mg/dl Direct Bilirubin < 0.1 (0-0.2) mg/dl AST 15 (15-37) U/L ALT 30 (12-78) U/L Alkaline Phosphatase 61 (45-117) U/L Troponin I < 0.015 (0-0.045) ng/ml Total Protein 7.3 (6.4-8.2) gm/dl Albumin 3.6 (3.4-5.0) gm/dl Lipase 128 (73-393) U/L TSH 3.240 (0.300-4.500) uIu/ml Urine Color Urine Appearance (Clear) Urine pH (4.5-7.5) Ur Specific [place] (1.000-1.030) Urine Protein (Negative) Urine Glucose (UA) (Negative) Urine Ketones (Negative) Urine Blood (Negative) Urine Nitrite (Negative) Urine Bilirubin (Negative) Urine Urobilinogen (Negative) Ur Leukocyte Esterase (Negative) 09/30/19 Range/Units 23:30 WBC (4.8-10.8) K/uL RBC (4.2-5.4) M/uL Hgb (12.0-16.0) g/dL Hct (37-47) % MCV (80-100) fL MCH (25-34) pg MCHC (32-36) g/dL RDW Std Deviation (36.4-46.3) fL RDW Coeff of Ruben (11.5-14.5) % Plt Count (130-400) K/uL MPV (7.4-10.4) fL Immature Gran % (Auto) % Neut % (Auto) % Lymph % (Auto) % [place] % (Auto) % Eos % (Auto) % Baso % (Auto) % Immature Gran # (Auto) (0.00-0.02) K/uL Neut # (Auto) (1.4-6.5) K/uL Lymph # (Auto) (1.2-3.4) K/uL [place] # (Auto) (0.11-0.59) K/uL Eos # (Auto) (0-0.5) K/uL Baso # (Auto) (0-0.2) K/uL PT (9.0-12.0) Seconds INR (0.9-1.1) Sodium (136-145) mmol/L Potassium (3.5-5.1) mmol/L Chloride (98-107) mmol/L Carbon Dioxide (21-32) mmol/L Anion Gap (3-11) BUN (7-18) mg/dl Creatinine (0.6-1.2) mg/dl Est Cr Clr Drug Dosing ml/min Est GFR ( Amer) Est GFR (Non-Af Amer) BUN/Creatinine Ratio (10-20) Glucose (70-99) mg/dl Calcium (8.5-10.1) mg/dl Magnesium (1.8-2.4) mg/dl Total Bilirubin (0.2-1) mg/dl Direct Bilirubin (0-0.2) mg/dl AST (15-37) U/L ALT (12-78) U/L Alkaline Phosphatase (45-117) U/L Troponin I (0-0.045) ng/ml Total Protein (6.4-8.2) gm/dl Albumin (3.4-5.0) gm/dl Lipase (73-393) U/L TSH (0.300-4.500) uIu/ml Urine Color Yellow Urine Appearance Clear (Clear) Urine pH 5.0 (4.5-7.5) Ur Specific [place] 1.025 (1.000-1.030) Urine Protein Negative (Negative) Urine Glucose (UA) Negative (Negative) Urine Ketones Negative (Negative) Urine Blood Negative (Negative) Urine Nitrite Negative (Negative) Urine Bilirubin Negative (Negative) Urine Urobilinogen Negative (Negative) Ur Leukocyte Esterase Negative (Negative) Administered Medications Sodium Chloride (Nss 1000ml) 1,000 mls @ 125 mls/hr IV .Q8H DARRYL Stop: 10/01/19 10:44 Last Admin: 10/01/19 03:26 Dose: 125 mls/hr Documented by: [id number] Magnesium Sulfate/Dextrose (Magnesium Sulfate / D5w) 1 gm in 100 mls @ 100 mls/hr IV ONE ONE Stop: 10/01/19 03:44 Last Admin: 10/01/19 03:26 Dose: 100 mls/hr Documented by: [id number] Ondansetron HCl (Zofran) 4 mg IV NOW STA Stop: 09/30/19 23:56 Last Admin: 09/30/19 23:56 Dose: Not Given Documented by: [id number] Ondansetron HCl (Zofran) 4 mg IV Q4H PRN PRN Reason: Nausea Stop: 10/31/19 02:44 Last Admin: 10/01/19 03:47 Dose: 4 mg Documented by: [id number] Discontinued Medications Miscellaneous () Confirm Administered Dose 1 ea .ROUTE .STK-MED ONE Stop: 09/30/19 23:07 Last Admin: 10/01/19 00:48 Dose: Not Given Documented by: [id number] Ondansetron HCl (Zofran) Confirm Administered Dose 4 mg .ROUTE .STK-MED ONE Stop: 09/30/19 23:09 Last Admin: 09/30/19 23:19 Dose: 4 mg Documented by: [id number] Discharge Plan Visit Data *Final* Discharge Date/Time: 10/01/19 02:17 Chief Complaint: Unresponsive Stated Complaint: SYNCOPE/POST CARDIAC ARREST ED Provider: Darci Luna Discharge Problem: Asystole, Vomiting, Syncope, AMS (altered mental status) Patient Disposition: Admitted As Inpatient Discharge Instructions Interventions: ED Discharge Assessment Last Done: 10/01/19 02:17 Discharge Problem: Vomiting Qualifiers: Vomiting type: unspecified Vomiting Intractability: unspecified Nausea presence: with nausea Qualified Code(s): R11.2 - Nausea with vomiting, unspecified Syncope Qualifiers: Syncope type: unspecified Qualified Code(s): R55 - Syncope and collapse AMS (altered mental status) Qualifiers: Altered mental status type: unspecified Qualified Code(s): R41.82 - Altered mental status, unspecified The scribe's documentation has been prepared under my direction and personally reviewed by me in its entirety. I confirm that the note above accurately reflects all work, treatment, procedures, and medical decision making performed by me.
[2019-10-01 04:50] LABS: Chol HDL Ratio 3; Cholesterol 188 mg/dl (0-200); HDL Cholesterol 58 mg/dl; LDL Cholesterol Calculated 114 mg/dl; Triglycerides 79 mg/dl (0-150); Troponin I < 0.015 ng/ml (0-0.045); VLDL Cholesterol 16 mg/dl
--- NOTE | 2019-10-01 05:23 | Billing Data ---
Date of Service October 01, 2019 Coding Level of Care Code 17064 Initial Inpt Care Lvl 3
[2019-10-01] MEDS: LEVOTHYROXINE SODIUM 112 MCG TABLET PO SCH (06:29)
--- NOTE | 2019-10-01 06:47 | CT Scan Report ---
CT OF THE HEAD WITHOUT CONTRAST CLINICAL HISTORY: fall, head injury, ams COMPARISON STUDY: Head CT September 23, 2016. MRI of the brain September 24, 2016. CT DOSE: 614.27 mGy.cm TECHNIQUE: Helical axial images of the head were obtained without IV contrast. Automated exposure con trol was utilized for the study. A dose lowering technique was utilized adhering to the principles o f ALARA. FINDINGS: No acute intracranial hemorrhage, midline shift or mass effect is present. The ventricular system is unremarkable. The basilar cisterns are patent. No extra-axial collections are present. Ther e are no findings to suggest acute dural sinus thrombosis or acute territorial infarct. No significan t calvarial abnormalities are present. Visualized portions of the sinuses and mastoid air cells are c lear. Mild white matter hypodensity suggests small vessel disease. IMPRESSION: 1. No acute intracranial findings. 2. No calvarial fracture. ACT 112: Negative or not required by law. Electronically signed by: Lazaro Brush M.D. 10/01/2019 6:46 AM
--- NOTE | 2019-10-01 06:51 | XRay Report ---
XR chest 1V portable CLINICAL HISTORY: AMS, Vomiting COMPARISON STUDY: Chest CT March 14, 2016. Chest radiograph March 01, 2019. FINDINGS: Lung volumes are diminished. There is no pneumothorax or pleural effusion. Moderate cardiom egaly is noted. Mild left basilar opacity favors atelectasis. There is pulmonary vascular congestion. There may be mild pulmonary edema. IMPRESSION: Interstitial prominence. This may be due to a hypoventilatory study or reflect mild pulm onary edema. ACT 112: Negative or not required by law. Electronically signed by: Lazaro Brush M.D. 10/01/2019 6:50 AM
[2019-10-01 07:01] LABS: Estimated Average Glucose 126 mg/dl
[2019-10-01] MEDS: ENOXAPARIN INJ 40 MG/0.4 ML SYR SQ SCH (09:00)
[2019-10-01] MEDS: LOSARTAN POTASSIUM 25 MG TAB PO SCH (09:00)
[2019-10-01] MEDS: IPRATROPIUM BROMIDE NASAL SPRAY 0.06% 15ML SCH ×3 (09:00→21:29)
[2019-10-01] MEDS: PANTOprazole 40 MG TAB PO SCH (09:00)
[2019-10-01] MEDS ORDERED: PERFLUTREN LIPID MICROSPHERE (DEFINITY) IV ONE (09:03)
[2019-10-01 09:44] LABS: iSTAT Arterial Blood Gas HCO3 24 meg/L (19-24); iSTAT Arterial Blood Gas pCO2 41 mmHg (35-46); iSTAT Arterial Blood Gas pH 7.37 (7.35-7.45); iSTAT Arterial Blood Gas pO2 141 mmHg (80-95); iSTAT Carbon Dioxide 25 mmol/L (24-31); iSTAT Hematocrit 42 % (37-47); iSTAT Hemoglobin 14.3 g/dl (12.0-16.0); iSTAT Potassium 3.8 mmol/L (3.3-5.0); iSTAT Sodium 140 mmol/L (135-144)
[2019-10-01 09:45] LABS: iSTAT Sample Type Arterial
--- NOTE | 2019-10-01 09:50 | Hospitalist Progress Note ---
Date of Service October 01, 2019 Assessment & Plan (1) Asystole: Cyn Modi is a 74 y/o female with a past medical history of COPD, esophageal reflux, hyperlipidemia, hypertension, hypothyroidism and prediabetes with asystole here in ED during active emesis. - Likely 2/2 vagal outflow triggered due to emesis - Tx. nausea prior to emesis with Zofran 4mg IV q4h. - Cardiology consulted to rule out underlying CHF putting her at risk for arrhythmia - TTE ordered - Currently hemodynamically stable - Troponin negative X2 - UA negative for infection Code: Full Code FENGI: Full liquid since vomiting/diarrheal illness, advance as tolerated DVT ppx: Lovenox 40mg subq q24h Dispo: Full Admit, PCU/Tele for cardiac monitoring (2) Vomiting: - No active vomiting s/p Zofran 4mg IV here in ED - Aspiration precautions since vomiting here - Only electrolyte abnormalities are slightly decreased Mag and will replace x1gm of Mag IV (3) Syncope: - During asystole, possible contributor of vagal outflow - Again, cardiology consult with TTE ordered (4) Prediabetes: - Previous A1C from review of EMR = 6.0% performed one year ago - Will repeat A1C to make sure not actively diabetic without active treatment. (5) Hypothyroidism: - continue with home levothyroxine 112mcg daily (6) Hypertension: - continue with home Losartan 25mg PO daily (7) Gastro-esophageal reflux: - continue with home PPI 40mg daily (8) Chronic obstructive pulmonary disease, unspecified: - currently requiring supplemental O2 at 3L - continue supplemental O2 as needed - continue with home ipratropium bromide 42mcg 2 sprays intranasal TID - Duonebs PRN for dyspnea (9) Hypomagnesemia: Mag 1.7 here in ED Will replace with Mag 1gm IV x1 bag Recheck in AM (10) Hyperlipidemia: Noted in past medical history, not currently on any medication Will check Lipid profile for underlying contributor to possible cardiac disease (11) Leukocytosis: - value of 15.22 in ED - either viral gastroenteritis cause or neutrophilic demargination from stress response to vomiting/diarrhea/acute illness. - febrile this morning likely related to viral process - blood cultures obtained - frequent bowel movements this AM sending C. diff. Supervising Physician Co-Signing Physician Notes I also saw the patient and confirmed knott portions of the history and physical exam. I agree with the impression and plan as noted above. Nausea is improved - no emesis since last evening. Continues to have loose stool. [place] today that has same symptoms, so suspect infectious gastroenteritis, norovirus or other. Appreciate cardiology input. Continue zofran, hydration, supportive care. BMP and Mg in AM. Remain on telemetry. Subjective Doing okay this morning she has had 2 soft bowel movement this morning, she states that she has been having soft stool for the last couple days. She also had some nausea this morning that she has been having for the last 2 days. Her eyes were closed during most of my conversation with her. Review of Systems Constitutional: no fever and no chills Respiratory: no cough Cardiovascular: no chest pain and no palpitations Gastrointestinal: + nausea, + vomiting and + diarrhea/loose stools; no abdominal pain Genitourinary: no dysuria, no difficulty urinating and no urinary frequency Neurologic: no headache(s) Physical Exam Constitutional: well developed, well nourished and + obese drowsy but arousable, opens eyes with verbal stimuli Eyes: PERRL, conjunctivae normal, anicteric sclerae ENMT: external ear and nose normal, oropharynx normal Neck: trachea midline, no thyromegaly Respiratory: normal effort, no increased work of breathing, diffuse end expiratory wheeze with good air movement in all lung coyne Cardiovascular: RRR, no murmur, no edema 1+ pitting edema bilateral lower extremity Gastrointestinal (Abdomen): hyperactive bowel sounds, no guarding, soft, nTTP Skin: no rashes, warm and dry Neurologic: Speech / Cognition: normal speech Psychiatric: Affect: + depressed affect Results & Data Vital Signs (Past 12 Hours) Vital Signs Temp Pulse Pulse Pulse Resp BP BP 10/01/19 08:00 37.6 C H 90 99 H 20 131/65 10/01/19 06:00 90 19 10/01/19 04:33 37.1 C 88 17 146/78 H 10/01/19 04:17 87 10/01/19 03:33 85 17 140/75 10/01/19 02:33 37.1 C 89 26 H 149/80 H 10/01/19 02:27 37.1 C 82 22 149/80 H 10/01/19 01:54 78 20 145/77 H 10/01/19 00:51 78 20 155/72 H 10/01/19 00:21 81 20 145/66 H 09/30/19 23:58 36.8 C 09/30/19 23:53 85 18 150/75 H 09/30/19 23:11 36.5 C 69 18 202/74 H Pulse Ox Pulse Ox 10/01/19 08:00 95 95 10/01/19 06:00 95 10/01/19 04:33 96 10/01/19 04:17 10/01/19 03:33 97 10/01/19 02:33 97 10/01/19 02:27 98 10/01/19 01:54 98 10/01/19 00:51 98 10/01/19 00:21 99 09/30/19 23:58 09/30/19 23:53 98 09/30/19 23:11 100 Resident Activity Tracking Resident Involvement: Resident Care Provided Care Provided: Adult Hospital Medicine (1) Syncope Syncope type: unspecified Qualified Code(s): R55 - Syncope and collapse (2) Vomiting Nausea presence: with nausea Vomiting Intractability: unspecified Vomiting type: unspecified Qualified Code(s): R11.2 - Nausea with vomiting, unspecified
[2019-10-01] MEDS: ACETAMINOPHEN 325 MG TAB PO PRN ×2 (10:32→21:19)
--- NOTE | 2019-10-01 13:44 | Cardiology Consultation ---
Date of Consultation October 01, 2019 Assessment & Plan (1) Asystole: Patient's episodes of asystole occurred during periods of high vagal tone. Patient had significant vomiting and diarrhea and likely triggered a vagal episode resulting in her ventricular asystole. In fact, evaluation of her rhythm strip from EMS reveals both slowing of the sinus rate and prolongation of the MO interval. These are consistent with increasing vagal tone. It is unclear whether she suffered ventricular tachycardia. The one strip available in her record does reveal what could be artifact. However, there definitely are some patients who experience ventricular arrhythmias during prolonged episodes of asystole. She did not endorse a history consistent with other episodes of arrhythmia or asystole. While she does suffer from dizziness fairly frequently, the characteristics of those episodes are quite consistent with vertigo. She has been evaluated for this previously. Given the situational nature of her syncope and documented arrhythmia, I do not feel that she requires a permanent pacemaker or any specific precaution. In the circumstances, avoiding the precipitants, recognizing the symptoms and taking appropriate abortive maneuvers are generally recommended. I believe there would be limited efficacy with pacemaker implantation in these episodes. In the absence of additional episodes outside of vomiting and retching, I do not believe she requires any additional outpatient monitoring. History of Present Illness Reason for Consultation: Asystole, syncope Requesting Physician: Haroldo Attending Physician: Daniel Zarco, History of Present Illness The patient is a 74-year-old woman without a known history of significant cardiac disease who experienced several episodes of syncope yesterday. According to the patient she began experiencing symptoms of nausea and abdominal discomfort yesterday evening. This was also accompanied by diarrhea. Patient states that she was in the bathroom vomiting with diarrhea when she apparently suffered a syncopal episode. This was not witnessed by her but he did find her shortly afterwards. Initially she did not feel as if she required an evaluation but apparently suffered another episode of syncope and EMS was called. According to the paramedics the patient had some additional nausea and vomiting in wound. She was hooked up to a monitor at that time and developed ventricular asystole prior to syncope. They did perform a brief resuscitation. There was some remark regarding ventricular tachycardia. The patient presented to the emergency room where she had regained consciousness but also had another episode of vomiting and syncope associated with ventricular asystole. Patient was placed on antiemetics, given fluid resuscitation and sent to the intensive care unit for monitoring. She has not had any additional episodes since admission. The patient notes in general she is an active individual who is accustomed to routine and moderate work. She generally does not have symptoms which limit her activity other than hip discomfort. She denies any exertional chest pain. She denies any limiting dyspnea. She generally is not aware of palpitations. Prior to her events yesterday she had been feeling well without gastrointestinal symptoms. She does endorse a history of dizziness and did have one episode of syncope several years ago. At that time she was felt to have a labyrinthitis and vertigo. In fact, she does state that her dizziness generally involves a sense of the room spinning. This is generally precipitated by rapid movement of her head [id number]. Allergies Allergy/AdvReac Type Severity Reaction Status Date / Time morphine Allergy Mild itching Verified 09/30/19 23:53 Home Medications Home Medications Medication Instructions Recorded Confirmed Type pantoprazole 40 mg tablet,delayed 40 mg PO DAILY #30 tab 05/14/19 09/30/19 Rx release losartan 25 mg tablet 25 mg PO DAILY #30 tab 05/15/19 09/30/19 Rx levothyroxine 112 mcg tablet 112 mcg PO QAM #30 tab 06/06/19 09/30/19 Rx ipratropium bromide 42 mcg (0.06 2 sprays INTNAS TID #15 ml 06/12/19 09/30/19 Rx %) nasal spray montelukast 10 mg tablet 10 mg PO DAILY #90 tab 08/10/19 09/30/19 Rx Patient History Medical History Chronic obstructive pulmonary disease, unspecified (Chronic) Chronic sinusitis (Chronic) Gastro-esophageal reflux (Chronic) Hyperlipidemia (Chronic) Hypertension (Chronic) Hypothyroidism (Chronic) Prediabetes (Chronic) Seasonal allergies (Chronic) Solitary pulmonary nodule (Chronic) Surgical History History of hysterectomy Family History Mother Asthma Dementia Brother Asthma Myocardial infarction Sister Asthma Ovarian cancer Father Dementia Social History Preferred Language: Danish Communication Ability: Effective Small Arms Repairer Required: No Beliefs That Will Affect Care: None Current Living Situation: Spouse current occupational status: retired Other Information That Helps Us Care for You: No Feels Safe at Home: Yes Safety Concerns: Feels Safe At This Time Smoking Status: Never smoker Hx Alcohol Use: No Hx Substance Use: No Dental Care, Regularly: Yes Review of Systems Review of Systems: All systems reviewed & are unremarkable except as noted in HPI & below No additional constitutional symptoms such as fevers or chills. No lower extremity edema. Physical Exam Physical Exam: She is alert and oriented x3. Mood affect appear normal. She answered all questions appropriately. HEENT: Sclerae are anicteric. Pupils are equal and reactive to light and accommodation. Extraocular movements were intact. Neuro: Cranial nerves intact Neck: Examination of the submandibular region did not reveal any significant lymphadenopathy. Carotids are palpable bilaterally and free of bruits on auscultation. There was no evidence of jugular venous distention. The thyroid was not enlarged. Lungs: Lungs are clear to auscultation bilaterally. There are no rales wheezes or rhonchi. She has normal respiratory effort without use of accessory muscles. There is normal pulmonary excursion. Cardiac: The rhythm was regular. S1 and S2 were normal. There are no murmurs on examination. The PMI was not markedly displaced on palpation. Abdomen: The abdomen was soft and nontender. Extremities: Patient has bilateral radial pulses that are equal in intensity. There is no evidence cyanosis or clubbing. There was no evidence of significant peripheral edema bilaterally. Skin: There are no rashes noted on examination today. Results & Data Vital Signs (Past 12 Hours) Vital Signs Temp Pulse Pulse Pulse Resp BP BP 10/01/19 12:33 80 22 119/57 L 10/01/19 12:00 86 17 10/01/19 11:47 91 H 21 115/53 L 10/01/19 11:07 37.8 C H 10/01/19 10:34 90 15 127/60 10/01/19 10:23 38.4 C H 10/01/19 10:00 85 23 10/01/19 09:19 92 H 22 112/66 10/01/19 08:34 88 22 112/66 10/01/19 08:00 37.6 C H 90 99 H 22 131/65 10/01/19 06:34 81 22 10/01/19 06:00 90 19 10/01/19 04:33 37.1 C 88 17 146/78 H 10/01/19 04:17 87 10/01/19 03:33 85 17 140/75 10/01/19 02:33 37.1 C 89 26 H 149/80 H 10/01/19 02:27 37.1 C 82 22 149/80 H 10/01/19 01:54 78 20 145/77 H Pulse Ox Pulse Ox 10/01/19 12:33 98 10/01/19 12:00 95 10/01/19 11:47 97 10/01/19 11:07 10/01/19 10:34 99 10/01/19 10:23 10/01/19 10:00 100 10/01/19 09:19 97 10/01/19 08:34 97 10/01/19 08:00 97 95 10/01/19 06:34 96 10/01/19 06:00 95 10/01/19 04:33 96 10/01/19 04:17 10/01/19 03:33 97 10/01/19 02:33 97 10/01/19 02:27 98 10/01/19 01:54 98 Laboratory Results Abnormal Lab Results 09/30/19 09/30/19 09/30/19 23:15 23:15 23:15 WBC 15.22 H RBC 4.49 Hgb 14.6 POC Hgb Hct 43.1 POC Hct MCV 96.0 MCH 32.5 MCHC 33.9 RDW Std Deviation 48.7 H RDW Coeff of Ruben 13.8 Plt Count 174 MPV 12.1 H Immature Gran % (Auto) 0.3 Neut % (Auto) 84.1 Lymph % (Auto) 5.5 Merrick % (Auto) 9.2 Eos % (Auto) 0.8 Baso % (Auto) 0.1 Immature Gran # (Auto) 0.04 H Neut # (Auto) 12.81 H Lymph # (Auto) 0.84 L Merrick # (Auto) 1.40 H Eos # (Auto) 0.12 Baso # (Auto) 0.01 PT 10.6 INR 1.0 Specimen Type POC pH POC pCO2 POC pO2 POC HCO3 POC Total CO2 POC Base Excess POC Sodium Sodium 140 POC Potassium Potassium 3.9 Chloride 107 Carbon Dioxide 26 Anion Gap 7.0 BUN 26 H Creatinine 0.97 Est Cr Clr Drug Dosing 53.0 Est GFR ( Amer) 66.7 Est GFR (Non-Af Amer) 57.5 BUN/Creatinine Ratio 26.9 H Glucose 147 H POC Glucose Estimat Average Glucose Hemoglobin A1c Calcium 8.5 Magnesium 1.7 L Total Bilirubin 0.4 Direct Bilirubin < 0.1 AST 15 ALT 30 Alkaline Phosphatase 61 Troponin I < 0.015 Total Protein 7.3 Albumin 3.6 Triglycerides Cholesterol LDL Cholesterol, Calc VLDL Cholesterol, Calc HDL Cholesterol Cholesterol/HDL Ratio Lipase 128 TSH 3.240 Urine Color Urine Appearance Urine pH Ur Specific [place] Urine Protein Urine Glucose (UA) Urine Ketones Urine Blood Urine Nitrite Urine Bilirubin Urine Urobilinogen Ur Leukocyte Esterase Nasal Screen MRSA (PCR) Stl C. diff Tox B Gene 09/30/19 09/30/19 10/01/19 23:17 23:30 02:39 WBC RBC Hgb POC Hgb 14.3 Hct POC Hct 42 MCV MCH MCHC RDW Std Deviation RDW Coeff of Ruben Plt Count MPV Immature Gran % (Auto) Neut % (Auto) Lymph % (Auto) Merrick % (Auto) Eos % (Auto) Baso % (Auto) Immature Gran # (Auto) Neut # (Auto) Lymph # (Auto) Merrick # (Auto) Eos # (Auto) Baso # (Auto) PT INR Specimen Type Arterial POC pH 7.37 POC pCO2 41 POC pO2 141 H POC HCO3 24 POC Total CO2 25 POC Base Excess -1.0 POC Sodium 140 Sodium POC Potassium 3.8 Potassium Chloride Carbon Dioxide Anion Gap BUN Creatinine Est Cr Clr Drug Dosing Est GFR ( Amer) Est GFR (Non-Af Amer) BUN/Creatinine Ratio Glucose POC Glucose Estimat Average Glucose Hemoglobin A1c Calcium Magnesium Total Bilirubin Direct Bilirubin AST ALT Alkaline Phosphatase Troponin I Total Protein Albumin Triglycerides Cholesterol LDL Cholesterol, Calc VLDL Cholesterol, Calc HDL Cholesterol Cholesterol/HDL Ratio Lipase TSH Urine Color Yellow Urine Appearance Clear Urine pH 5.0 Ur Specific [place] 1.025 Urine Protein Negative Urine Glucose (UA) Negative Urine Ketones Negative Urine Blood Negative Urine Nitrite Negative Urine Bilirubin Negative Urine Urobilinogen Negative Ur Leukocyte Esterase Negative Nasal Screen MRSA (PCR) Negative Stl C. diff Tox B Gene 10/01/19 10/01/19 10/01/19 03:06 04:14 04:14 WBC RBC Hgb POC Hgb Hct POC Hct MCV MCH MCHC RDW Std Deviation RDW Coeff of Ruben Plt Count MPV Immature Gran % (Auto) Neut % (Auto) Lymph % (Auto) Merrick % (Auto) Eos % (Auto) Baso % (Auto) Immature Gran # (Auto) Neut # (Auto) Lymph # (Auto) Merrick # (Auto) Eos # (Auto) Baso # (Auto) PT INR Specimen Type POC pH POC pCO2 POC pO2 POC HCO3 POC Total CO2 POC Base Excess POC Sodium Sodium POC Potassium Potassium Chloride Carbon Dioxide Anion Gap BUN Creatinine Est Cr Clr Drug Dosing Est GFR ( Amer) Est GFR (Non-Af Amer) BUN/Creatinine Ratio Glucose POC Glucose 127 H Estimat Average Glucose 126 Hemoglobin A1c 6.0 H Calcium Magnesium Total Bilirubin Direct Bilirubin AST ALT Alkaline Phosphatase Troponin I < 0.015 Total Protein Albumin Triglycerides 79 Cholesterol 188 LDL Cholesterol, Calc 114 VLDL Cholesterol, Calc 16 HDL Cholesterol 58 Cholesterol/HDL Ratio 3 Lipase TSH Urine Color Urine Appearance Urine pH Ur Specific [place] Urine Protein Urine Glucose (UA) Urine Ketones Urine Blood Urine Nitrite Urine Bilirubin Urine Urobilinogen Ur Leukocyte Esterase Nasal Screen MRSA (PCR) Stl C. diff Tox B Gene 10/01/19 10/01/19 10:47 15:30 WBC RBC Hgb POC Hgb Hct POC Hct MCV MCH MCHC RDW Std Deviation RDW Coeff of Ruben Plt Count MPV Immature Gran % (Auto) Neut % (Auto) Lymph % (Auto) Merrick % (Auto) Eos % (Auto) Baso % (Auto) Immature Gran # (Auto) Neut # (Auto) Lymph # (Auto) Merrick # (Auto) Eos # (Auto) Baso # (Auto) PT INR Specimen Type POC pH POC pCO2 POC pO2 POC HCO3 POC Total CO2 POC Base Excess POC Sodium Sodium POC Potassium Potassium Chloride Carbon Dioxide Anion Gap BUN Creatinine Est Cr Clr Drug Dosing Est GFR ( Amer) Est GFR (Non-Af Amer) BUN/Creatinine Ratio Glucose POC Glucose Estimat Average Glucose Hemoglobin A1c Calcium Magnesium Total Bilirubin Direct Bilirubin AST ALT Alkaline Phosphatase Troponin I < 0.015 Total Protein Albumin Triglycerides Cholesterol LDL Cholesterol, Calc VLDL Cholesterol, Calc HDL Cholesterol Cholesterol/HDL Ratio Lipase TSH Urine Color Urine Appearance Urine pH Ur Specific [place] Urine Protein Urine Glucose (UA) Urine Ketones Urine Blood Urine Nitrite Urine Bilirubin Urine Urobilinogen Ur Leukocyte Esterase Nasal Screen MRSA (PCR) Stl C. diff Tox B Gene Negative Cdiff Gene Diagnostic Findings Chest x-ray attempt at time of admission not any acute cardiopulmonary process CT scan of the head did not reveal any fracture Echocardiogram obtained today revealed preserved LV systolic function without evidence of outflow tract obstruction, significant valvular stenosis or regional wall motion abnormalities. I reviewed the patient's prior stress echocardiography which did not reveal any evidence of inducible ischemia although the patient only was able to exercise for approximately 4 minutes. ECG Additional Comments: EKG obtained at time admission revealed sinus bradycardia. PG Care Time/CCT Total # of Minutes Spent Total Time Spent with Patient: Total time spent is greater than 50% in coordination of care (as documented) at patient's floor/unit and/or counseling patient: Coding Level of Care Code 97519 Initial Inpt Care Lvl 3 Diagnoses Asystole I46.9
--- NOTE | 2019-10-01 14:18 | XCELERA ---
[id number] [id number]
[2019-10-01] MEDS: LACTATED RINGER'S 1,000 ML IV SCH ×2 (14:28→21:29)
[2019-10-01 15:28] LABS: Influenza A virus by PCR Neg for Influ A (Neg); Influenza B virus by PCR Neg for Influ B (Neg)
[2019-10-01] MEDS ORDERED: MONTELUKAST SODIUM 10 MG TABLET PO SCH (21:00)
[2019-10-02] MEDS: LEVOTHYROXINE SODIUM 112 MCG TABLET PO SCH (06:00)
[2019-10-02] MEDS: LACTATED RINGER'S 1,000 ML IV SCH (06:01)
[2019-10-02 07:11] LABS: Basophils # (auto) 0.01 K/uL (0-0.2); Basophils % (auto) 0.2 %; Eosinophils # (auto) 0.12 K/uL (0-0.5); Eosinophils % (auto) 2.3 %; Hematocrit (blood only) 38.3 % (37-47); Hemoglobin 12.4 g/dL (12.0-16.0); Immature Granulocytes # (auto) 0.01 K/uL (0.00-0.02); Immature Granulocytes % (auto) 0.2 %; Lymphocytes # (auto) 1.02 K/uL (1.2-3.4); Lymphocytes % (auto) 19.2 %; Mean Corpuscular Hemoglobin 31.7 pg (25-34); Mean Corpuscular Hgb Conc 32.4 g/dL (32-36); Mean Platelet Volume 11.8 fL (7.4-10.4); Monocytes % (auto) 11.3 %; Neutrophils # (auto) 3.56 K/uL (1.4-6.5); Neutrophils % (auto) 66.8 %; Platelet Count 143 K/uL (130-400); RDW Coefficient of Variation 14.4 % (11.5-14.5); RDW Standard Deviation 52.1 fL (36.4-46.3); Red Blood Count 3.91 M/uL (4.2-5.4); White Blood Count 5.32 K/uL (4.8-10.8)
[2019-10-02] MEDS: ACETAMINOPHEN 325 MG TAB PO PRN (07:26)
[2019-10-02 07:49] LABS: Albumin Level 2.7 gm/dl (3.4-5.0); Creatinine Clr Calc Pharmacy 72.2 ml/min; Est GFR (African American) 89.6; Est GFR (Non-African American) 77.3; Magnesium 1.9 mg/dl (1.8-2.4); Potassium 3.8 mmol/L (3.5-5.1)
[2019-10-02 07:54] LABS: Albumin Globulin Ratio 0.9 (0.9-2); Bilirubin,Total 0.3 mg/dl (0.2-1); Phosphorus 2.6 mg/dl (2.5-4.9); Total Protein 5.7 gm/dl (6.4-8.2)
[2019-10-02] MEDS: ENOXAPARIN INJ 40 MG/0.4 ML SYR SQ SCH (08:13)
[2019-10-02] MEDS: LOSARTAN POTASSIUM 25 MG TAB PO SCH (08:16)
[2019-10-02] MEDS: IPRATROPIUM BROMIDE NASAL SPRAY 0.06% 15ML SCH ×2 (08:17→08:19)
[2019-10-02] MEDS: PANTOprazole 40 MG TAB PO SCH (08:17)
--- NOTE | 2019-10-02 17:28 | Electrocardiogram Report ---
Test Reason : Blood Pressure : / mmHG Vent. Rate : 068 BPM Atrial Rate : 068 BPM P-R Int : 168 ms QRS Dur : 092 ms QT Int : 412 ms P-R-T Axes : 011 -31 068 degrees QTc Int : 438 ms Normal sinus rhythm Left axis deviation Poor R wave progression, consider anterior NM vs. lead placement vs. LVH Abnormal ECG When compared with ECG of 23-SEP-2016 16:54, No significant change was found Confirmed by Aldo Mendez ([id number]) on 10/02/2019 5:27:59 PM Referred By: REFERRED SELF Confirmed By:Zachery Mendez
--- NOTE | 2019-10-02 21:25 | Discharge Summary ---
Date of Service October 02, 2019 Admission HPI Per Admitting Provider Cyn Modi is a 74 y/o female with a past medical history of COPD, esophageal reflux, hyperlipidemia, hypertension, hypothyroidism and prediabetes who was brought to [facility] ED for nausea/vomiting/diarrhea. She notes onset of illness today. She notes she has had "lots" of episodes of vomiting and "lots" of episodes of diarrhea starting earlier today. She notes no black/blood in stool or bloody/blood tinged emesis. She notes she was in usual state of health yesterday. No recent antibiotics, travel, judaism cookouts, eating reheated rice or any other potentially spoiled foods. No other sick contacts with similar. She was being treated here in the field when during active emesis, she became unresponsive and had about 10 seconds of aystole on surveillance system monitor. CPR was started with chest compressions only and event only lasted about 10 seconds and resolved without medication. Patient currently denies any chest pain, active nausea after being treated with Zofran 4mg IV x1. She notes abdominal cramping earlier in the day but none currently. Currently in ED, she is drowsy but arouses to voice and opens eyes to gentle physical stimuli. Denies any recent cough/colds and has received annual influenza vaccination. Discharge Data Consultations 10/01/19 00:43 ED Decision to Admit Stat 10/01/19 02:45 Consult Cardiology Routine
--- NOTE | 2019-10-02 21:28 | Discharge Summary ---
Date of Service October 02, 2019 Admission HPI Per Admitting Provider Chief Complaint: Asystole Primary Care Provider: Andrew Ramirez III, PRAMOD Cyn Modi is a 74 y/o female with a past medical history of COPD, esophageal reflux, hyperlipidemia, hypertension, hypothyroidism and prediabetes who was brought to [facility] ED for nausea/vomiting/diarrhea. She notes onset of illness today. She notes she has had "lots" of episodes of vomiting and "lots" of episodes of diarrhea starting earlier today. She notes no black/blood in stool or bloody/blood tinged emesis. She notes she was in usual state of health yesterday. No recent antibiotics, travel, mandaen cookouts, eating reheated rice or any other potentially spoiled foods. No other sick contacts with similar. She was being treated here in the ED when during active emesis, she became unresponsive and had about 10 seconds of aystole on monitor technician. CPR was started with chest compressions only and event only lasted about 10 seconds and resolved without medication. Patient currently denies any chest pain, active nausea after being treated with Zofran 4mg IV x1. She notes abdominal cramping earlier in the day but none currently. Currently in ED, she is drowsy but arouses to voice and opens eyes to gentle physical stimuli. Denies any recent cough/colds and has received annual influenza vaccination. Admission Exam Per Admitting Provider Constitutional: WD/WN, vitals as above + obese drowsy but arouses to voice and opens eyes to gentle physical stimuli. Eyes: PERRL, conjunctivae normal, anicteric sclerae ENMT: external ear and nose normal, oropharynx normal Neck: normal visual inspection and trachea midline Respiratory: normal respiratory effort; no respiratory distress Auscultation: + wheezes (expiratory diffuse); no crackles Cardiovascular: Rate/Rhythm: regular rate and regular rhythm Extremities: + edema (2+ pitting to distal half of bilateral legs) Gastrointestinal (Abdomen): Inspection/Auscultation: normal bowel sounds Percussion/Palpation: abdomen soft; abdomen nontender, no guarding and abdomen not rigid Musculoskeletal: Head/Neck/Chest: normocephalic and head atraumatic Skin: no rashes, warm and dry Neurologic: moves all extremities; no focal motor deficits Psychiatric: Orientation: oriented x 3 drowsy Genitourinary: urinary stauffer in place Principal Diagnosis vasovagal syncope viral gastroenteritis Discharge Exam Constitutional well developed, well nourished and + obese Eyes PERRL, conjunctivae normal, anicteric sclerae ENMT external ear and nose normal, oropharynx normal Neck trachea midline, no thyromegaly Cardiovascular RRR, no murmur, no edema Skin no rashes, warm and dry Neurologic Speech / Cognition: normal speech Psychiatric Affect: + depressed affect Discharge Data Allergies Allergy/AdvReac Type Severity Reaction Status Date / Time morphine Allergy Mild itching Verified 09/30/19 23:53 Consultations 10/01/19 00:43 ED Decision to Admit Stat 10/01/19 02:45 Consult Cardiology Routine Ordered Studies 09/30/19 23:09 CT head/brain wo con Stat Hospital Course (1) Asystole: Cyn Modi is a 74 y/o female with a past medical history of COPD, esophageal reflux, hyperlipidemia, hypertension, hypothyroidism and prediabetes with vasovagal syncope causing asystole w/ EMS during active emesis. Likely has viral gastroenteritis that has improved over hospitalization. - Treated nausea with Zofran 4mg IV q4h while inpatient and discharged with oral Zofran 4 mg. - TTE showed nl LV systolic function EF 65-70% and moderate mitral annular calcifications - hemodynamically stable over hospitalization - Troponin negative X2 - UA negative for infection (2) Vomiting: - No active vomiting s/p Zofran 4mg IV here in ED - Aspiration precautions since vomiting - Only electrolyte abnormalities are slightly decreased Mag and replaced x 1gm of Mag IV (3) Syncope: - During asystole, possible contributor of vagal outflow - Again, cardiology consult with TTE as above (4) Prediabetes: - Previous A1C from review of EMR = 6.0% performed one year ago - repeat A1C of 6% (5) Hypothyroidism: - continued with home levothyroxine 112mcg daily (6) Hypertension: - continued with home Losartan 25mg PO daily (7) Gastro-esophageal reflux: - continued with home PPI 40mg daily (8) Chronic obstructive pulmonary disease, unspecified: - was given oxygen up to 3 L during hospitalization on discharge was on room air saturating at 96% - continued with home ipratropium bromide 42mcg 2 sprays intranasal TID while hospitalized - Duonebs PRN were available for dyspnea - sent home on home medications and doses. (9) Hypomagnesemia: Mag 1.7 here in ED Replaced with Mag 1gm IV x1 bag (10) Hyperlipidemia: Noted in past medical history, not currently on any medication Total cholesterol, LDL and triglycerides found to be normal (11) Leukocytosis: - either viral gastroenteritis cause or neutrophilic demargination from stress response to vomiting/diarrhea/acute illness. - febrile this morning likely related to viral process - blood cultures obtained no growth to 24 hours - C. diff. sent and negative (12) Vasovagal syncope: - During asystole, possible contributor of vagal outflow - Again, cardiology consult with TTE as above Total Time Total Time Spent Total Time Spent (In Minutes): Discharge Plan Discharge Items Patient Disposition: Home - Self-Care Reason For Visit: ASYSTOLE Discharge Diagnosis: Viral gastroenteritis syncope prediabetic HTN COPD Activity: Per Instructions section Non-emergency contact: Primary Care Provider Call non-emergency contact if: your symptoms worsen Follow-up/Referrals: Andrwe Ramirez III, CRNP [Primary Care Provider] - Diet: Regular Addtl Attending Provider Instructions: You were admitted to the hospital for a response to vomiting that lead to your heart not conducting electrical signals. This lead to emergency responders doing CPR and you regaining a normal electrical activity in your heart. We evaluated your heart with a ultrasound that found that you had normal systolic function of your heart. Cardiology saw you while you were in the hospital and thought that this was likely vasovagal syncope. This is a common type of syncope that can happen in a variety of situations. This type of syncope can be triggered by stress, dehydration, bleeding and pain. Treatment of syncope is based upon the underlying cause. The goal of treatment is to prevent recurrences or more serious problems. Vasovagal syncope can usually be treated by learning to take precautions to avoid potential triggers and minimize the potential risk of harm. For example, if you faint while blood is being drawn, you may be instructed to lie down during the procedure. If you have a feeling that you will pass out during any activity, you should immediately lie down and elevate your legs. Counter-pressure maneuvers Counter-pressure maneuvers such as tensing your arms with clenched fists, leg pumping, and leg-crossing may stop a vasovagal syncopal episode, or at least delay it long enough that you can lie down with the feet elevated. Such maneuvers include: Leg crossing while tensing the leg, abdominal, and buttock muscles. Hand gripping, which involves gripping a rubber ball or similar object as hard as possible. Arm tensing, which involves gripping one hand with the other while simultaneously moving both arms away from the body. For your viral gastroenteritis (stomach bug) we treated you with medication for nausea and we will send you home with some Zofran 4 mg and you can try one - two of these to help if you continue to develop nausea at home. You were also given IV fluid while in the hospital and it will be important for you to continue to drink plenty of fluids when you go home from the hospital. Other things to ensure that you doen't spread the infection, or infect yourself is to wash your hands with soap and water after using the bathroom, and before eating. You will also want to ensure that you are wiping down surfaces that are frequently used. Pending Studies at Discharge: Yes Studies:: Blood cultures from 10/01 Stand-Alone Forms: [facility], Smoking Cessation Medications and DC Order Prescriptions: New ondansetron HCl 4 mg tablet 4 mg PO DAILY MDD 2 tabs 7 Days Qty: 7 RF: 0 Continued pantoprazole 40 mg tablet,delayed release (DR/EC) 40 mg PO DAILY Qty: 30 RF: 5 losartan 25 mg tablet 25 mg PO DAILY Qty: 30 RF: 5 levothyroxine 112 mcg tablet 112 mcg PO QAM Qty: 30 RF: 5 ipratropium bromide 42 mcg (0.06 %) spray,non-aerosol 2 sprays INTNAS TID Qty: 15 RF: 5 montelukast 10 mg tablet 10 mg PO DAILY Qty: 90 RF: 1 Discharge Orders: Discharge Order (Routine); Ordered 10/02/19 Ordered By: Richard Niño/Other Patient Handouts: A1C Admission Data Admit Date/Time: 10/01/19 01:58 Attending Provider: Daniel Zarco Admit Provider: Presley Spivey Primary Care Provider: Andrew Ramirez III Other Providers: Daniel Zarco ; Gonsalo Salazar Other Interventions: Discharge Summary Assessment (RN) Last Done: 10/02/19 12:00 DC Date/Time DO NOT enter until pt leaves facility: 10/02/19 13:30 Supervising Physician Co-Signing Physician Notes I saw the patient the resident physician confirmed knott portion of the history and physical examination. The patient is feeling better today; she has had no emesis and no bowel movements. At approximately, her was into the hospital overnight with similar symptoms; he is also improving and is to be discharged today. Discussed gradual reduction of foods; bland diet. Discussed hand hygiene to prevent reinfection. Impression Gastroenteritis, resolved Vasovagal syncope Other diagnoses as listed above Plan Discharge to home PCP follow-up Resident Activity Tracking Resident Involvement: Resident Care Provided Care Provided: Adult Hospital Medicine
== END 2019-10-02 13:30 | disposition home or self-care (01) | DRG 391 ==
LOC: ED 23:01 → 1E 10-01 01:58 → 2S 10-01 19:11

== ENCOUNTER 2020-06-17 09:57 | Observation (INO) ==
--- NOTE | 2020-06-17 10:09 | Emergency Department Note ---
History of Present Illness General Chief complaint: Dizziness Stated complaint: change in mental status vomiting (-) follow comman Time Seen by Provider: 06/17/20 09:58 Source: patient Mode of arrival: EMS Limitations: altered mental status History of Present Illness Provider complaint: Dizziness and altered mental status Zentz to the ED with a chief complaint of dizziness, per EMS. The patient was reportedly well until about 830 this morning. According to EMS, the patient had a dizzy spell and vomited and then passed out. She was not responding normally after this and EMS was called. Prehospital blood sugar was 116. The patient's initial blood pressure was very high. This improved during EMS transport with her last EMS blood pressure around 160 systolic. The EMS reports that the patient only stated that she was dizzy when asked questions. She would not answer other questions. When I asked the patient, she is a difficult historian as she moans and she says no to all questions other than dizziness. She denied having chest pains or abdominal pains. Denies any headaches. She does not provide any additional information as she was only answering yes to dizziness and note other questions. She does follow basic commands although weakly. She was able to squeeze my fingers with both hands and wiggle her toes with both feet in a symmetrical fashion and similar strength. She did not stick out her tongue or smile when I asked. No additional information available at this time. No family is currently present. Home Medications Home Medications Medication Instructions Recorded Confirmed Type levothyroxine 112 mcg tablet 112 mcg PO QAM #30 tab 12/23/19 06/17/20 Rx montelukast 10 mg tablet 10 mg PO DAILY #90 tab 02/18/20 06/17/20 Rx ipratropium bromide 42 mcg (0.06 2 sprays INTNAS TID #30 ml 04/08/20 06/17/20 Rx %) nasal spray losartan 25 mg tablet 25 mg PO DAILY #30 tab 05/21/20 06/17/20 Rx pantoprazole 40 mg tablet,delayed 40 mg PO DAILY #90 tab 05/22/20 06/17/20 Rx release Allergies Allergy/AdvReac Type Severity Reaction Status Date / Time morphine Allergy Mild itching Verified 04/16/20 18:40 Past Med/Surg History Medical History Chronic obstructive pulmonary disease, unspecified Chronic sinusitis Gastro-esophageal reflux Hyperlipidemia Hypertension Hypothyroidism Prediabetes Seasonal allergies Solitary pulmonary nodule Uterine cancer Vasovagal syncope Surgical History History of appendectomy History of hysterectomy (~2006) secondary to uterine cancer Family History Mother Asthma Dementia Brother Asthma Myocardial infarction Cardiovascular disease Sister Asthma Ovarian cancer Colonic polyp Uterine cancer Father Dementia Denies family history of Prostate cancer Breast cancer Colorectal cancer Social History Smoking Status: Unknown if ever smoked Hx Alcohol Use: No Hx Substance Use: No Preferred Language: Trinidadian Communication Ability: Effective Licensed Club Manager Required: No Beliefs That Will Affect Care: None marital status: Current Living Situation: Spouse current occupational status: retired Feels Safe at Home: Yes Childhood Exposure to Second-Hand Smoke: No Dental Care, Regularly: Yes Physical Activity Frequency: 1-2 Times per Week Seatbelt Use: always Sunscreen Use: Yes Assistive Devices: Denture - Upper Review of Systems Unobtainable due to cognitive status Physical Exam Vital Signs Vital Signs - 24 hr 06/17/20 10:14 Temperature 36.6 C Temperature Source Oral Pulse Rate 74 Respiratory Rate 16 Blood Pressure 186/81 H Blood Pressure Mean 116 Pulse Oximetry 97 Oxygen Delivery Method Room Air Sepsis Recent Fever Within 48 Hours No Sepsis New/Unexplained Change in Mental Status No Sepsis Action Taken by Nursing No Action Required CONSTITUTIONAL/VITAL SIGNS: Reviewed / noted above. GENERAL: Patient appears to be in mild distress with regards to her symptoms. She is moaning. INTEGUMENTARY: Warm, dry, and [place]. HEAD: Normocephalic. EYES: without scleral icterus or trauma. ENT/OROPHARYNX: clear and moist. LYMPHADENOPATHY/NECK: Is supple without lymphadenopathy or meningismus. RESPIRATORY: Lungs clear and equal. CARDIOVASCULAR: Regular rate and rhythm. GI/ABDOMEN: Soft and nontender. No organomegaly or pulsatile mass. No rebound or guarding. Normal bowel sounds. EXTREMITIES: Warm and well perfused. BACK: No CVA tenderness. NEUROLOGICAL: Patient has generalized weakness. She has no focal deficits in her arms or legs. She does not follow all commands. She does not follow any commands with regards to sticking out her tongue or moving her face. She does not answer questions other than yes or no questions and only reports yes to dizziness. PSYCHIATRIC: Unable to assess MUSCULOSKELETAL: Normally developed with globally poor muscle tone. TRIAGE NURSING DOCUMENTATION REVIEWED. Course Administered Medications Discontinued Medications Sodium Chloride (Nss) 500 mls @ 999 mls/hr IV .Q31M DARRYL Stop: 06/17/20 10:45 Last Admin: 06/17/20 10:37 Dose: 999 mls/hr Documented by: [id number] Ioversol (Optiray 320 125ml) 120 ml IV ONCE ONE Stop: 06/17/20 10:27 Last Admin: 06/17/20 10:27 Dose: 120 ml Documented by: [id number] Medical Decision Making Differential Diagnosis Differential includes acute coronary syndrome, myocardial infarction, CVA, TIA, anemia, infection, pneumonia, UTI, pyelonephritis, poor nutrition, dehydration, electrolyte disturbance,hypoglycemia. Medical Records Attestation: I reviewed the patient's medical records. Home Medications Current Medication List: was personally reviewed by me Laboratory Data Attestation: I reviewed the patient's lab results. Result diagrams: 06/17/20 10:10 06/17/20 10:10 Lab Results 06/17/20 06/17/20 06/17/20 Range/Units 10:10 10:10 10:10 WBC 5.25 (4.8-10.8) K/uL RBC 4.67 (4.2-5.4) M/uL Hgb 14.8 (12.0-16.0) g/dL Hct 44.4 (37-47) % MCV 95.1 (80-100) fL MCH 31.7 (25-34) pg MCHC 33.3 (32-36) g/dL RDW Std Deviation 47.1 H (36.4-46.3) fL RDW Coeff of Ruben 13.7 (11.5-14.5) % Plt Count 187 (130-400) K/uL MPV 12.4 H (7.4-10.4) fL Immature Gran % (Auto) 0.4 % Neut % (Auto) 54.7 % Lymph % (Auto) 33.1 % Jack % (Auto) 8.2 % Eos % (Auto) 3.2 % Baso % (Auto) 0.4 % Neut # (Auto) 2.87 (1.4-6.5) K/uL Lymph # (Auto) 1.74 (1.2-3.4) K/uL Jack # (Auto) 0.43 (0.11-0.59) K/uL Eos # (Auto) 0.17 (0-0.5) K/uL Baso # (Auto) 0.02 (0-0.2) K/uL Immature Gran # (Auto) 0.02 (0.00-0.02) K/uL PT 10.8 (9.0-12.0) Seconds INR 1.0 (0.9-1.1) Sodium 139 (136-145) mmol/L Potassium 4.3 (3.5-5.1) mmol/L Chloride 107 (98-107) mmol/L Carbon Dioxide 27 (21-32) mmol/L Anion Gap 5.0 (3-11) BUN 20 H (7-18) mg/dl Creatinine 0.98 (0.6-1.2) mg/dl Est Cr Clr Drug Dosing Not Reportable Est GFR ( Amer) 65.9 Est GFR (Non-Af Amer) 56.8 BUN/Creatinine Ratio 20.9 H (10-20) Glucose 136 H (70-99) mg/dl Calcium 9.0 (8.5-10.1) mg/dl Total Bilirubin 0.4 (0.2-1) mg/dl AST 20 (15-37) U/L ALT 32 (12-78) U/L Alkaline Phosphatase 66 (45-117) U/L Total Creatine Kinase 80 (26-192) U/L Troponin I < 0.015 (0-0.045) ng/ml Total Protein 7.4 (6.4-8.2) gm/dl Albumin 3.7 (3.4-5.0) gm/dl Globulin 3.7 (2.5-4.0) gm/dl Albumin/Globulin Ratio 1.0 (0.9-2) TSH 3.090 (0.300-4.500) uIu/ml Imaging Data Radiologist's Impression: CT scan angiogram of the head and neck: IMPRESSION: 1. No significant stenosis, occlusion, or aneurysm within the [place]. 2. No significant stenosis, occlusion, or dissection identified within the carotid or vertebral arteries. 3. No acute intracranial abnormality. XR chest 1V portable HISTORY: weakness COMPARISON: Chest 09/30/2019. FINDINGS: No pneumothorax. No pleural effusions. There are low lung volumes. The heart remains mildly enlarged. Diffuse interstitial thickening remains unchanged. Left basilar linear densities favor subsegmental atelectasis. IMPRESSION: No change in the mild cardiomegaly and diffuse interstitial thickening. This could represent mild congestive change or chronic interstitial thickening. ECG Data Attestation: I personally reviewed and interpreted this ECG as follows: Indication: + altered mental status Rate (beats per minute): 60 Rhythm: + normal sinus ECG ST segments: no ST elevation ECG Findings: no PVCs MDM Narrative The patient presents as above with altered mental status with a main complaint of dizziness. Symptom onset was 830 this morning about 1-1/2 hours prior to arrival. She reportedly had a syncopal episode after the dizziness as well as some vomiting. Her initial vital signs reveal hypertension. She is moaning on exam. She has weak responses to all extremities with regards to strength. Only answers yes and no questions in a week tone of voice. Does not provide much detail. Did not move any part of her face when requested. A twelve-lead EKG showed normal sinus rhythm at a rate of [address] scan of the head and CT angiogram of the head neck did not show any acute process. CBC was normal. Chemistry panel was unremarkable. TSH was normal. Chest x-ray was unremarkable. The patient was reassessed. She is essentially the same. She has not had any seizure activity here. She is laying in bed. She does not appear to be in any distress. She is breathing comfortably. She did open her eyes for me. She followed my fingers. She still not responding appropriately. She will be seen by the hospitalist for further inpatient evaluation and care. I did speak with the about the patient. The reported that the patient awoke from bed and went to the bathroom. On her way back to bed, she felt very dizzy and laid down on the couch. He states that she had at least one episode of vomiting. She had passed out x2. She was briefly unresponsive for about 10 seconds. At one point she began shaking with her right arm. She then passed out a second time for a brief period of time. She was not responding normally and EMS provided transport here. The did state that she had 1 previous episode of vertigo that was this bad and required transport to the hospital. She does have a history of vertigo. Impression & Plan Vertigo, Altered mental status Discharge Plan Visit Data Chief Complaint: Dizziness Stated Complaint: change in mental status vomiting (-) follow comman ED Provider: Ebenezer Mackey Discharge Problem: Vertigo, Altered mental status Patient Disposition: Being Evaluated by Hospitalist Forms Stand Alone Forms: [facility] Prescriptions Prescriptions: No Action levothyroxine 112 mcg tablet 112 mcg PO QAM Qty: 30 RF: 5 montelukast 10 mg tablet 10 mg PO DAILY Qty: 90 RF: 1 ipratropium bromide 42 mcg (0.06 %) spray,non-aerosol 2 sprays INTNAS TID Qty: 30 RF: 5 losartan 25 mg tablet 25 mg PO DAILY Qty: 30 RF: 5 pantoprazole 40 mg tablet,delayed release (DR/EC) 40 mg PO DAILY Qty: 90 RF: 1 Referrals Referrals: Andrew Ramirez III, CRNP [Primary Care Provider] -
[2020-06-17] MEDS ORDERED: SODIUM CHLORIDE 0.9% 500 ML IV SCH (10:15)
[2020-06-17 10:20] LABS: Basophils # (auto) 0.02 K/uL (0-0.2); Basophils % (auto) 0.4 %; Eosinophils # (auto) 0.17 K/uL (0-0.5); Eosinophils % (auto) 3.2 %; Hematocrit (blood only) 44.4 % (37-47); Hemoglobin 14.8 g/dL (12.0-16.0); Immature Granulocytes # (auto) 0.02 K/uL (0.00-0.02); Immature Granulocytes % (auto) 0.4 %; Lymphocytes # (auto) 1.74 K/uL (1.2-3.4); Lymphocytes % (auto) 33.1 %; Mean Corpuscular Hemoglobin 31.7 pg (25-34); Mean Corpuscular Hgb Conc 33.3 g/dL (32-36); Mean Corpuscular Volume 95.1 fL (80-100); Mean Platelet Volume 12.4 fL (7.4-10.4); Monocytes # (auto) 0.43 K/uL (0.11-0.59); Monocytes % (auto) 8.2 %; Neutrophils # (auto) 2.87 K/uL (1.4-6.5); Neutrophils % (auto) 54.7 %; Platelet Count 187 K/uL (130-400); RDW Coefficient of Variation 13.7 % (11.5-14.5); RDW Standard Deviation 47.1 fL (36.4-46.3); Red Blood Count 4.67 M/uL (4.2-5.4); White Blood Count 5.25 K/uL (4.8-10.8)
[2020-06-17] MEDS ORDERED: OPTIRAY 320 125ml IV ONE (10:26)
[2020-06-17 10:31] LABS: Prothrombin Time 10.8 Seconds (9.0-12.0)
[2020-06-17 10:38] LABS: Alanine Aminotransferase 32 U/L (12-78); Albumin Level 3.7 gm/dl (3.4-5.0); Aspartate Aminotransferase 20 U/L (15-37); BUN Creatinine Ratio 20.9 (10-20); Blood Urea Nitrogen 20 mg/dl (7-18); Carbon Dioxide 27 mmol/L (21-32); Chloride 107 mmol/L (98-107); Est GFR (African American) 65.9; Est GFR (Non-African American) 56.8; Glucose 136 mg/dl (70-99); Potassium 4.3 mmol/L (3.5-5.1); Sodium 139 mmol/L (136-145)
--- NOTE | 2020-06-17 10:46 | CT Scan Report ---
HEAD & NECK CTA HISTORY: Dizziness. Altered mental status. TECHNIQUE: Multiaxial CT images of the head were performed both before and after the intravenous admi nistration of contrast to evaluate the major cerebral vessels. Multiaxial CT images of the neck were also performed following the intravenous administration of contrast to evaluate the major cervical ve ssels. Maximum intensity projection images were also obtained. A dose lowering technique was utilized adhering to the principles of ALARA. COMPARISON: Head CT 09/30/2019. FINDINGS: There is no mass, hematoma, midline shift, or acute infarct. Visualized intracranial internal carotid arteries, distal vertebral arteries, and basilar artery are widely patent. There is no significant s tenosis, occlusion, or aneurysm seen within the bilateral ACAs, MCAs, or solder making laborer. Major dural venous sin uses are patent. There is persistent origin of the left MASH GRINDER. The aortic arch and proximal great vessels are widely patent. There is no significant stenosis, occ lusion, or dissection identified within the bilateral common carotid, internal carotid, or vertebral arteries. Mild calcified plaque within the bilateral carotid bifurcations. Hypoplastic right vertebra l artery in comparison to the left. IMPRESSION: 1. No significant stenosis, occlusion, or aneurysm within the [place]. 2. No significant stenosis, occlusion, or dissection identified within the carotid or vertebral arter ies. 3. No acute intracranial abnormality. ACT 112: Negative or not required by law. Electronically signed by: Tucker Verma M.D. 06/17/2020 10:45 AM
--- NOTE | 2020-06-17 10:46 | CT Scan Report ---
HEAD & NECK CTA HISTORY: Dizziness. Altered mental status. TECHNIQUE: Multiaxial CT images of the head were performed both before and after the intravenous admi nistration of contrast to evaluate the major cerebral vessels. Multiaxial CT images of the neck were also performed following the intravenous administration of contrast to evaluate the major cervical ve ssels. Maximum intensity projection images were also obtained. A dose lowering technique was utilized adhering to the principles of ALARA. COMPARISON: Head CT 09/30/2019. FINDINGS: There is no mass, hematoma, midline shift, or acute infarct. Visualized intracranial internal carotid arteries, distal vertebral arteries, and basilar artery are widely patent. There is no significant s tenosis, occlusion, or aneurysm seen within the bilateral ACAs, MCAs, or bar steward. Major dural venous sin uses are patent. 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 The aortic arch and proximal great vessels are widely patent. There is no significant stenosis, occ lusion, or dissection identified within the bilateral common carotid, internal carotid, or vertebral arteries. Mild calcified plaque within the bilateral carotid bifurcations. Hypoplastic right vertebra l artery in comparison to the left. IMPRESSION: 1. No significant stenosis, occlusion, or aneurysm within the [place]. 2. No significant stenosis, occlusion, or dissection identified within the carotid or vertebral arter ies. 3. No acute intracranial abnormality. ACT 112: Negative or not required by law. Electronically signed by: Tucker Verma M.D. 06/17/2020 10:45 AM
[2020-06-17 10:48] LABS: Alkaline Phosphatase 66 U/L (45-117); Bilirubin,Total 0.4 mg/dl (0.2-1); Creatine Kinase 80 U/L (26-192); Globulin 3.7 gm/dl (2.5-4.0); Total Protein 7.4 gm/dl (6.4-8.2); Troponin I < 0.015 ng/ml (0-0.045)
--- NOTE | 2020-06-17 11:14 | XRay Report ---
XR chest 1V portable HISTORY: weakness COMPARISON: Chest 09/30/2019. FINDINGS: No pneumothorax. No pleural effusions. There are low lung volumes. The heart remains mildly enlarged. Diffuse interstitial thickening remains unchanged. Left basilar linear densities favor sub segmental atelectasis. IMPRESSION: No change in the mild cardiomegaly and diffuse interstitial thickening. This could represent mild con gestive change or chronic interstitial thickening. ACT 112: Negative or not required by law. Electronically signed by: Tucker Verma M.D. 06/17/2020 11:13 AM
--- NOTE | 2020-06-17 11:36 | History & Physical Report ---
Date of Service June 17, 2020 Assessment & Plan (1) Vertigo: History of cardiac arrhythmias (?Asystole/sinus pauses associated with increased vagal tone) and associated syncope concerning however inducible dizziness with head movements without arrhythmia on monitor, reassuring this is vertigo. Suspected BPPV given history and episodic nature. Unable to get full history from the patient due to altered mental state, if hearing loss and tinnitus present consider Mnire's disease. Rule out CVA with MRI. No need for full stroke work-up if this is negative and symptoms resolved. Benadryl 25 mg IV for ongoing symptoms of nausea and dizziness. PT eval and treat for BPPV. (2) Syncope and collapse: As above. Assess for arrhythmia on telemetry given history of vasovagal syncope, asystole/sinus pauses. Falls risk (3) Altered mental status: Not yet back to baseline. If prolonged recovery consider EEG due to abnormal movements ?focal seizure however patient appears to be slowly returning to her baseline. (4) Hypothyroidism: TSH WNL. Continue levothyroxine 112 mcg p.o. daily. (5) Hypertension: Continue losartan 25 mg p.o. daily (6) Gastro-esophageal reflux: Continue pantoprazole 40 mg p.o. daily (7) DVT prophylaxis: SCDs. Chemical prophylaxis deferred pending MRI results. Admission and Anticipated Discharge Date Admission Date: 06/17/2020 History of Present Illness Chief Complaint: Dizziness, altered mental state Primary Care Provider: Andrew Ramirez III, PRAMOD Cyn Modi is a 74-year-old female who presents to the ER with acute onset dizziness. Unable to get full history from patient due to altered mental state, therefore majority of history was taken from her at bedside. The patient reports feeling dizzy and unable to see the trees outside her window this morning when she woke up while lying down. reports the patient talked about feeling dizzy approximately 8:30 AM while walking back from the bathroom. This was followed by severe nausea and vomiting. No abdominal pain, diarrhea, constipation. She was feeling her normal baseline self yesterday. She has had similar episodes in the past previously diagnosed as vertigo. She has these episodes 1-2 times a year but have been getting progressively more severe. She usually has 15-second episodes of losing consciousness with these episodes. However on this occasion reports she last vomited for 20 minutes until EMS arrived. He denies any tonic seizure-like activity, urine incontinence or tongue biting. He does report her right arm was shaking similar to what she is experiencing currently in the ER. She continues to be minimally responsive for EMS he struggled to get into the ambulance. Of note she was hospitalized in September with asystole associated with vomiting. She was also diagnosed with vasovagal syncope associated with events which increase her back to times such as micturition. She arrived via EMS and was given Zofran en route she continued ongoing nausea. In the ER she was given 500mL NSS bolus. Her at bedside note she is still altered and not yet back to her normal self. Medicine consulted for admission. On initial assessment the patient was very lethargic with upward gaze arise. However, during taking history the patient was able to wake up considerably and give a brief story of events, orientated x3 and able to complete simple commands. Allergies Allergy/AdvReac Type Severity Reaction Status Date / Time morphine Allergy Mild itching Verified 04/16/20 18:40 Home Medications Home Medications Medication Instructions Recorded Confirmed Type levothyroxine 112 mcg tablet 112 mcg PO QAM #30 tab 12/23/19 06/17/20 Rx montelukast 10 mg tablet 10 mg PO DAILY #90 tab 02/18/20 06/17/20 Rx ipratropium bromide 42 mcg (0.06 2 sprays INTNAS TID #30 ml 04/08/20 06/17/20 Rx %) nasal spray losartan 25 mg tablet 25 mg PO DAILY #30 tab 05/21/20 06/17/20 Rx pantoprazole 40 mg tablet,delayed 40 mg PO DAILY #90 tab 05/22/20 06/17/20 Rx release Past Med/Surg History Medical History Chronic obstructive pulmonary disease, unspecified Chronic sinusitis Gastro-esophageal reflux Hyperlipidemia Hypertension Hypothyroidism Prediabetes Seasonal allergies Solitary pulmonary nodule Uterine cancer Vasovagal syncope Surgical History History of appendectomy History of hysterectomy (~2006) secondary to uterine cancer Family History Mother Asthma Dementia Brother Asthma Myocardial infarction Cardiovascular disease Sister Asthma Ovarian cancer Colonic polyp Uterine cancer Father Dementia Denies family history of Prostate cancer Breast cancer Colorectal cancer Social History Smoking Status: Never smoker Hx Alcohol Use: No Hx Substance Use: No Preferred Language: Mongolian Communication Ability: Effective Ore Roaster Required: No Beliefs That Will Affect Care: None marital status: Current Living Situation: Spouse current occupational status: retired Other Information That Helps Us Care for You: No Feels Safe at Home: Yes Childhood Exposure to Second-Hand Smoke: No Dental Care, Regularly: Yes Physical Activity Frequency: 1-2 Times per Week Seatbelt Use: always Sunscreen Use: Yes Assistive Devices: Glasses Review of Systems Review of Systems: All systems reviewed & are unremarkable except as noted in HPI & below Physical Exam Constitutional: well developed and + lethargic; + not well nourished and no acute distress Eyes: PERRL, conjunctivae normal, anicteric sclerae EOM intact bilaterally; no nystagmus ENMT: external ear and nose normal, oropharynx normal Neck: trachea midline, no thyromegaly Respiratory: normal respiratory effort, lungs clear to auscultation Cardiovascular: RRR, no murmur, no edema Gastrointestinal (Abdomen): normal bowel sounds, soft, nontender, no hepatosplenomegaly Skin: no rashes, warm and dry Neurologic: patellar DTR's 2+ bilat, sensation intact moves all extremities, awake (To voice) and + confused; no focal motor deficits (Difficult examination due to lethargy but equal crepe sole wire brusher strength b/l, equal lower extremity movements bilaterally) Speech / Cognition: normal speech Motor/Sensory: + tremor (right arm resting); no pronator drift and no sensory deficit Cranial Nerves: EOM intact bilaterally (upward gaze initially but once she was more awake) Psychiatric: Orientation: alert and oriented x 3 Results & Data Results & Data ([facility]) Vital Signs (Past 12 Hours) Vital Signs Temp Pulse Resp BP Pulse Ox 06/17/20 10:14 36.6 C 74 16 186/81 H 97 Diagnostic Findings XR chest 1V portable IMPRESSION: No change in the mild cardiomegaly and diffuse interstitial thickening. This could represent mild congestive change or chronic interstitial thickening. HEAD & NECK CTA IMPRESSION: 1. No significant stenosis, occlusion, or aneurysm within the [place]. 2. No significant stenosis, occlusion, or dissection identified within the carotid or vertebral arteries. 3. No acute intracranial abnormality. ECG Indication: altered mental status Rate (beats per minute): 61 Rhythm: normal sinus Findings: no acute ischemic change Comparison ECG Date: from (September 30, 2019) Change: no significant change Code Status & VTE Plan Code Status Full VTE Prophylaxis Plan VTE Prophylaxis will be ordered: Yes Reason for no VTE drug order: Treatment not indicated PG Care Time/CCT Total # of Minutes Spent Total Time Spent with Patient: Total time spent is greater than 50% in coordination of care (as documented) at patient's floor/unit and/or counseling patient: Coding Level of Care Code 16279 OBS Care - Level 3 Diagnoses Vertigo R42 Syncope and collapse R55 Altered mental status R40.0 Altered mental status type: somnolence Hypothyroidism E03.9 Hypertension I10 Gastro-esophageal reflux K21.9 DVT prophylaxis Z29.9 (1) Altered mental status Altered mental status type: somnolence Qualified Code(s): R40.0 - Somnolence
[2020-06-17] MEDS ORDERED: diphenhydrAMINE 50 MG/ML VIAL IV STA (12:04)
--- NOTE | 2020-06-17 13:43 | Electrocardiogram Report ---
Test Reason : Blood Pressure : / mmHG Vent. Rate : 061 BPM Atrial Rate : 061 BPM P-R Int : 172 ms QRS Dur : 086 ms QT Int : 438 ms P-R-T Axes : 013 -33 071 degrees QTc Int : 440 ms Normal sinus rhythm Left axis deviation Abnormal ECG When compared with ECG of 30-SEP-2019 23:06, No significant change was found Confirmed by Jaswant Rowley ([id number]) on 06/17/2020 1:42:45 PM Referred By: REFERRED SELF Confirmed By:Jaswant Rowley
[2020-06-17] MEDS: LACTATED RINGER'S 1,000 ML IV SCH ×2 (14:39→22:06)
--- NOTE | 2020-06-17 16:11 | XCELERA ---
[id number]
[2020-06-17] MEDS ORDERED: MECLIZINE HCL 25 MG TAB PO PRN (20:40)
[2020-06-17] MEDS ORDERED: MONTELUKAST SODIUM 10 MG TABLET PO SCH (21:00)
[2020-06-17] MEDS ORDERED: GADOBUTROL 65ML VIAL IV ONE (23:19)
[2020-06-18] MEDS ORDERED: PHARMACIST DISCHARGE MED REC CONSULT PRN (05:51)
--- NOTE | 2020-06-18 06:01 | Communication Note ---
Date of Service: June 18, 2020 Patient does have basal ganglia stroke, neurology consult and stroke order set placed.
[2020-06-18] MEDS ORDERED: LEVOTHYROXINE SODIUM 112 MCG TABLET PO SCH (06:30)
[2020-06-18 06:54] LABS: Basophils # (auto) 0.02 K/uL (0-0.2); Basophils % (auto) 0.4 %; Eosinophils # (auto) 0.12 K/uL (0-0.5); Eosinophils % (auto) 2.4 %; Hematocrit (blood only) 39.8 % (37-47); Hemoglobin 12.9 g/dL (12.0-16.0); Immature Granulocytes # (auto) 0.01 K/uL (0.00-0.02); Immature Granulocytes % (auto) 0.2 %; Lymphocytes # (auto) 1.81 K/uL (1.2-3.4); Lymphocytes % (auto) 35.6 %; Mean Corpuscular Hemoglobin 31.4 pg (25-34); Mean Corpuscular Hgb Conc 32.4 g/dL (32-36); Mean Corpuscular Volume 96.8 fL (80-100); Mean Platelet Volume 12.7 fL (7.4-10.4); Monocytes # (auto) 0.51 K/uL (0.11-0.59); Neutrophils # (auto) 2.62 K/uL (1.4-6.5); Neutrophils % (auto) 51.4 %; Platelet Count 171 K/uL (130-400); RDW Coefficient of Variation 14.1 % (11.5-14.5); RDW Standard Deviation 50.4 fL (36.4-46.3); Red Blood Count 4.11 M/uL (4.2-5.4); White Blood Count 5.09 K/uL (4.8-10.8)
[2020-06-18 07:24] LABS: BUN Creatinine Ratio 20.3 (10-20); Calcium 8.8 mg/dl (8.5-10.1); Creatinine Clr Calc Pharmacy 54.5 ml/min; Est GFR (African American) 64.3; Est GFR (Non-African American) 55.5; Potassium 4.3 mmol/L (3.5-5.1)
[2020-06-18] MEDS: LACTATED RINGER'S 1,000 ML IV SCH (07:47)
--- NOTE | 2020-06-18 07:54 | Magnetic Resonance Report ---
MRI OF THE BRAIN COMBO INTERNAL AUDITORY CANAL PROTOCOL CLINICAL HISTORY: Vertigo. COMPARISON STUDY: CT of the brain dated 06/17/2020. TECHNIQUE: MRI of the brain was performed utilizing various T1 and T2-weighted sequences in the axial , sagittal, and coronal planes. Contrast-enhanced sequences were acquired following the administratio n of 9.5 cc of Gadavist. Additional high-resolution imaging was performed through the skull base both pre and post contrast to assess the internal auditory canals. FINDINGS: Brain parenchyma: There is mild subcortical and periventricular microangiopathic disease. There are s ubcentimeter foci of restricted diffusion identified in the left internal capsule/basal ganglia consi stent acute to subacute lacunar infarcts. No additional foci of restricted diffusion are identified. There is no hemorrhage or mass effect. No enhancing mass lesion is identified on the postcontrast im ages. Khanna-white matter differentiation is preserved. No extra-axial fluid collection is seen. A smal l chronic lacunar infarct is noted in the susie. The cerebellar tonsils are normal in configuration. Ventricles, sulci, and cisterns: Normal in configuration. Internal auditory canals: No enhancing mass lesion is identified in the cerebellopontine angle bilate rally. No mass or abnormal enhancement is seen along the course of the internal auditory canals. The middle ear structures are normal as visualized. Pituitary and sella: Unremarkable. Intracranial vasculature: Normal flow voids are maintained at the skull base. Orbits: The bony orbits are grossly intact. Orbital contents are normal in appearance. Sinuses and mastoids: Clear. Calvarium: Unremarkable. Cervical cord: Partially visualized cervical spinal cord is normal in morphology and signal intensity . IMPRESSION: 1. There are small foci of restricted diffusion identified in the left basal ganglia/internal capsule consistent with acute to subacute lacunar infarcts. 2. No additional foci of restricted diffusion are identified. There is no hemorrhage or mass effect. 3. Unremarkable assessment of the internal auditory canals. ACT 112: Negative or not required by law. Electronically signed by: Dami De La Cruz M.D. 06/18/2020 7:53 AM
[2020-06-18] MEDS ORDERED: LOSARTAN POTASSIUM 25 MG TAB PO SCH (09:00)
[2020-06-18] MEDS ORDERED: ENOXAPARIN INJ 40 MG/0.4 ML SYR SQ SCH (09:00)
[2020-06-18] MEDS ORDERED: PANTOprazole 40 MG TAB PO SCH (09:00)
[2020-06-18] MEDS ORDERED: ASPIRIN 81 MG ECTAB PO SCH (09:00)
[2020-06-18] MEDS ORDERED: ATORVASTATIN 40 MG TAB PO SCH (09:00)
--- NOTE | 2020-06-18 10:41 | Neurology Consultation ---
Date of Consultation June 18, 2020 Assessment & Plan (1) Stroke: Acute to subacute ischemic infarct within the left basal ganglia occurring in the context of what sounds like a vasovagal syncopal episode. No evidence of significant carotid or intracranial disease on angiography. Stroke risk factors for this patient include borderline diabetes, hypertension, and hyperlipidemia. Atrial fibrillation may not be completely excluded. Patient was not taking blood thinners or antiplatelet medication as an outpatient. I agree with the addition of daily low-dose aspirin to her medication regimen. I also agree with the addition of atorvastatin to her medication regimen. She will probably not require inpatient rehabilitation as she does not have significant deficits on neurological examination. Would consider obtaining a 30-day cardiac event monitor at time of discharge to further exclude atrial fibrillation. She will need to follow-up with her PCP for ongoing management and monitoring of cardiovascular/stroke risk factors. Please contact me if I may be of further assistance. History of Present Illness Reason for Consultation: Stroke Requesting Physician: Junior Mercado MD Attending Physician: Mervin Mattson DO History of Present Illness The patient is a 74-year old female who presented to the emergency department yesterday with chief complaint of dizziness, blurry vision, nausea, emesis and syncopal episode witnessed by her spouse. She had some associated involuntary movement of the right upper limb as well. She was somewhat confused during her assessment in the emergency department. She has a history of vasovagal syncope with associated vomiting. She is currently without neurological complaint and feels as if she is back to normal. She has been ambulating freely in her hospital room. She has undergone fairly extensive neuro imaging including CT of the head, CT angiogram of the head and neck and brain MRI with attention to the internal auditory canals. She was found to have acute to subacute ischemic infarcts within the left basal ganglia/internal capsule. Imaging described in further detail below. The patient currently denies feeling any weakness or heaviness affecting the right arm or leg. She complains of a low-grade headache. Allergies Allergy/AdvReac Type Severity Reaction Status Date / Time morphine Allergy Mild itching Verified 04/16/20 18:40 Home Medications Home Medications Medication Instructions Recorded Confirmed Type levothyroxine 112 mcg tablet 112 mcg PO QAM #30 tab 12/23/19 06/17/20 Rx montelukast 10 mg tablet 10 mg PO DAILY #90 tab 02/18/20 06/17/20 Rx ipratropium bromide 42 mcg (0.06 2 sprays INTNAS TID #30 ml 04/08/20 06/17/20 Rx %) nasal spray losartan 25 mg tablet 25 mg PO DAILY #30 tab 05/21/20 06/17/20 Rx pantoprazole 40 mg tablet,delayed 40 mg PO DAILY #90 tab 05/22/20 06/17/20 Rx release Patient History Medical History Chronic obstructive pulmonary disease, unspecified Chronic sinusitis Gastro-esophageal reflux Hyperlipidemia Hypertension Hypothyroidism Prediabetes Seasonal allergies Solitary pulmonary nodule Uterine cancer Vasovagal syncope Surgical History History of appendectomy History of hysterectomy (~2006) secondary to uterine cancer Family History Mother Asthma Dementia Brother Asthma Myocardial infarction Cardiovascular disease Sister Asthma Ovarian cancer Colonic polyp Uterine cancer Father Dementia Denies family history of Prostate cancer Breast cancer Colorectal cancer Social History Smoking Status: Never smoker Hx Alcohol Use: No Hx Substance Use: No Preferred Language: Ecuadorean Communication Ability: Effective Technical Aid Required: No Beliefs That Will Affect Care: None marital status: Current Living Situation: Spouse current occupational status: retired Other Information That Helps Us Care for You: No Feels Safe at Home: Yes Childhood Exposure to Second-Hand Smoke: No Dental Care, Regularly: Yes Physical Activity Frequency: 1-2 Times per Week Seatbelt Use: always Sunscreen Use: Yes Assistive Devices: Glasses Review of Systems Constitutional: no fever and no chills Eyes: no blind spots and no diplopia Ear, Nose, Mouth, Throat: no tinnitus and no hearing loss Respiratory: no cough and no dyspnea Cardiovascular: no chest pain and no palpitations Gastrointestinal: as per Subjective / HPI, + nausea and + vomiting Genitourinary: no dysuria Musculoskeletal: no neck pain and no myalgia Integumentary: no rash and no lesions Neurologic: as per Subjective / HPI, + abnormal movements, + syncope and + headache(s); no gait abnormality, no tremor(s), no confusion and no memory loss Psychiatric: no depression and no anxiety Hematologic / Lymphatic: no easy bleeding and no easy bruising Exam (Neuro) Constitutional: well developed and well nourished; no acute distress Eyes: normal visual coyne by confrontation, PERRL, normal accommodation and EOM intact bilaterally; no fundoscopic abnormality, no nystagmus and no papilledema Cardiovascular: Vessels: normal carotid upstroke; no carotid bruit Neurologic: Oriented to:: Person, Place and Time Memory: Short Term Intact and Remote Intact Attention: Span Intact and Concentration Intact Language: Naming Objects and Repeating Phrases Speech Fluency: negative Dysarthria Speech Aphasia: negative Aphasia Fund of Knowledge: Current Events, Past History and Vocabulary Cranial Nerves: Normal II (Visual coyne full to confrontation, visual acuity normal), III, IV, (Pupils equal round reactive to light and accommodation, eye movements normal), V (Facial sensation intact), VII (There is no facial droop or weakness), VIII (Hearing intact), IX, X (Palate elevates to midline), XI (Shoulder shrug intact) and XII (Tongue protrudes to midline) Motor Strength: Normal Lower Extremities and Normal Upper Extremities; negative Pronator Drift Motor Tone: Normal Lower Extremities and Normal Upper Extremities Muscle Bulk/Involuntary Movements: No Involuntary Movements; negative Muscle Atrophy Sensation: Light Touch Intact, Pain/Temperature Intact, Vibration Intact and Proprioception Intact Coordination: Normal; negative Limited Balance, Dysdiadochokinesia, Finger-Nose Abnormal and Heel-Chance Abnormal Deep Tendon Reflexes: Rt Triceps: 2+, Lt Triceps: 2+, Rt Biceps: 2+, Lt Biceps: 2+, Rt Brachioradialis: 2+, Lt Brachioradialis: 2+, Rt Patellar: 2+, Lt Patellar: 2+, Rt Ankle: 2+ and Lt Ankle: 2+ Special Tests: negative Babinski Present Gait: Normal Station and Gait Results & Data ([facility]) Vital Signs (Past 12 Hours) Vital Signs Temp Pulse Pulse Resp BP Pulse Ox 06/18/20 07:58 36.7 C 53 L 18 144/75 H 94 06/18/20 07:23 68 06/18/20 03:00 36.7 C 64 20 159/71 H 95 06/18/20 01:47 72 06/17/20 23:54 36.7 C 68 20 153/85 H 97 Laboratory Results WBC 5.09, hemoglobin 12.9, hematocrit 39.8, platelet count 171, sodium 141, potassium 4.3, BUN 20, creatinine 1.00, glucose 101, troponin 0 0.015, triglycerides 175, cholesterol 203, LDL 122, VLDL 35, HDL 46, TSH 3.[address] of the head negative for hemorrhage or acute process. CTA of the head and neck negative for stenosis, occlusion, aneurysm, or dissection. MRI of the brain reveals a few small foci of restricted diffusion within the left basal ganglia/internal capsule consistent with acute to subacute infarcts. I reviewed the images as well as the radiologist interpretation of these tests. An electrocardiogram reveals a normal sinus rhythm, 61 bpm. An echocardiogram reveals normal left ventricular systolic function, no regional wall motion abnormalities, ejection fraction 60 to 65%. There is borderline left atrial enlargement. PG Care Time/CCT Total # of Minutes Spent Total Time Spent with Patient: Total time spent is greater than 50% in coordination of care (as documented) at patient's floor/unit and/or counseling patient: Coding Level of Care Code 81823 Initial Inpt Care Lvl 3 Diagnoses Stroke I63.9
--- NOTE | 2020-06-18 16:43 | Hospitalist Progress Note ---
Date of Service June 18, 2020 Assessment & Plan (1) Vertigo: Cyn Modi is a 74yo female with HTN, HLD, and hypothyroidism who presents with nausea, vomiting, and loss of consciousness in the setting of a 3- 4 year history of infrequent episodes of nausea, vomiting, and loss of consciousness, with imaging concerning for basal ganglia stroke. Nausea, vomiting, loss of consciousness -history concerning for positional vertigo -30 day heart monitor recommended by neuro to evaluate for other possible causes of syncope - Basal ganglia stroke on imaging -unclear if acute or subacute -no neurologic symptoms at present time -heart monitor as above -continue ASA 81mg qd -continue losartan 25mg qd -continue atorvastatin 40mg qd (2) Stroke: (3) Syncope and collapse: (4) Hypothyroidism: (5) Hypertension: Admission and Anticipated Discharge Date Admission Date: June 17, 2020 Subjective Patient seen at bedside this morning. She feels well and has no complaints. Her nausea and vomiting has completely resolved. Denies dizziness, lightheadedness, loss of consciousness, ringing in the ears, hearing loss, vision loss, imbalance, weakness, chest pain, shortness of breath, or other symptoms. Review of Systems Constitutional: no fever and no chills Respiratory: no cough and no wheezing Cardiovascular: no chest pain, no palpitations and no edema Gastrointestinal: no nausea and no vomiting Genitourinary: no dysuria and no urinary frequency Physical Exam Constitutional: no acute distress and not ill appearing Respiratory: normal respiratory effort, lungs clear to auscultation Cardiovascular: RRR, no murmur, no edema Gastrointestinal (Abdomen): normal bowel sounds, soft, nontender, no hepatosplenomegaly Musculoskeletal: no cyanosis or clubbing, extremities motor strength 5/5 Neurologic: PERRL, EOMI, accommodation nl, no face palsy, no dysarthria Results & Data Results & Data ([facility]) Vital Signs (Past 12 Hours) Vital Signs Temp Pulse Pulse Resp BP Pulse Ox 06/18/20 16:09 62 06/18/20 15: 36.8 C 60 18 131/70 95 06/18/20 11:17 36.9 C 63 18 170/88 H 95 06/18/20 07:58 36.7 C 53 L 18 144/75 H 94 06/18/20 07:23 68
[2020-06-18] MEDS ORDERED: STROKE PATIENT DISCHARGE STA (16:55)
--- NOTE | 2020-06-18 17:04 | Discharge Summary ---
Date of Service June 18, 2020 Admission HPI Per Admitting Provider Cyn Modi is a 74-year-old female who presents to the ER with acute onset dizziness. Unable to get full history from patient due to altered mental state, therefore majority of history was taken from her at bedside. The patient reports feeling dizzy and unable to see the trees outside her window this morning when she woke up while lying down. reports the patient talked about feeling dizzy approximately 8:30 AM while walking back from the bathroom. This was followed by severe nausea and vomiting. No abdominal pain, diarrhea, constipation. She was feeling her normal baseline self yesterday. She has had similar episodes in the past previously diagnosed as vertigo. She has these episodes 1-2 times a year but have been getting progressively more severe. She usually has 15-second episodes of losing consciousness with these episodes. However on this occasion reports she last vomited for 20 minutes until EMS arrived. He denies any tonic seizure-like activity, urine incontinence or tongue biting. He does report her right arm was shaking similar to what she is experiencing currently in the ER. She continues to be minimally responsive for EMS he struggled to get into the ambulance. Of note she was hospitalized in September with asystole associated with vomiting. She was also diagnosed with vasovagal syncope associated with events which increase her back to times such as micturition. She arrived via EMS and was given Zofran en route she continued ongoing nausea. In the ER she was given 500mL NSS bolus. Her at bedside note she is still altered and not yet back to her normal self. Medicine consulted for admission. On initial assessment the patient was very lethargic with upward gaze arise. However, during taking history the patient was able to wake up considerably and give a brief story of events, orientated x3 and able to complete simple commands. 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 neuro exam grossly normal see neurology consult for detailed exam Discharge Data Allergies Allergy/AdvReac Type Severity Reaction Status Date / Time morphine Allergy Mild itching Verified 04/16/20 18:40 Consultations 06/17/20 11:14 ED Decision to Admit Stat 06/18/20 05:51 Consult Case Management - Discharge Planning Routine Consult Neurology Routine 06/18/20 15:20 Consult [facility] accounting support specialist Routine Ordered Studies 06/17/20 10:02 CT angio head wo/w Stat CT angio neck with con Stat 06/17/20 14:26 MR brain IAC wo/w con Routine Hospital Course (1) Stroke: incidental finding - MRI done to look for innner ear/acoustic neuroma type issues - obviously those not found, but basal ganglia stroke noted. does have risks - age, HTN, hyperlipid, impaired glucose tolerance ---doubt this was the cause of her symptoms as much as it was effect from poor flow from vagal event on superimposed cerebrovascular disease (watershed type event) secondary risk reduction" -add asa -add atorvastatin -follow BP at home / track closely (has cuff but notes it's a wrist cuff, asked her to bring to office to check it against the office cuff) -stable for home (2) Vertigo: no neuroma, no anatomic inner ear problems identified on MRI; hx fits most w BPPV. stable for home. discussed vestibular PT - she does not concern with this since she seems to have bad vagal events and secondary fallout when she has severe vertigo/nausea/vomiting - but discussed that at least meeting w vestibular PT to discuss treatment options and strategies might be worth her while - referral entered. Total Time Total Time Spent Total Time Spent (In Minutes): >30 Discharge Plan Discharge Items Patient Disposition: Home - Self-Care Reason For Visit: DIZZINESS, DROWINESS Discharge Diagnosis: Nausea, vomiting, syncope Activity: Resume your previous activity Non-emergency contact: Primary Care Provider Call non-emergency contact if: you have any medication questions and your symptoms worsen Follow-up/Referrals: Andrew Ramirez III, CRNP [Primary Care Provider] - Diet: Heart Healthy Addtl Attending Provider Instructions: vertigo -your vertigo episodes seem quite consistent with positional vertigo -as we discussed, this is usually because of a crystal of salt that's fallout ou t into the inner ear. remember that the inner ear is an arch of fluid lined with hair cells - so when you move, the fluid washes across those hair cells and gives us a relative sense of motion. with positional vertigo - that crystal of salt "bumps" across the hair cells and causes the nerves to tell your brain you're moving even though you're not. because your eyes don't see motion, and the nerves in your hands and feet don't feel motion, but your inner ear says "we're moving," your brain will generate a terrible spinning vertigo sensation as a result. -while most positional vertigo gets better over time, when it's really bad and when it persists like yours does, it can be helpful to do a specific type of therapy called "vestibular retraining." with this, a physical therapist basical ly tries to "shake the rock loose" with some maneuvers, and often can help w balance/vertiginous sensations/etc as well. with what has happened with you with bad vertigo episodes, it's totally understandable to be reticent to do any therapy given that some of the maneuvers do make people feel worse when they're doing them, but, as we discussed, they may have some "less provoking" things they can try that might help. what we'd recommend is that you at least meet with a vestibular therapist to discuss your situation, and they can talk you through what they would do, and then you can decide to proceed or not. that way, if there are ways they could help, you're not cheating yourself out of a chance to improve; and conversely, if anything that they could offer sounds like things you would not want to do, you at least have the closure of knowing that you got more information/etc -for now, definitely do your best to take it easy and avoid the positions and changes in positions that make you feel vertiginous stroke -as really almost an incidental finding, the MRI of your brain that was done to look for any inner ear anatomic issues (none noted) or tumors that can cause dizziness (none found) did show a small area of stroke. stroke is damaged brain tissue from lack of blood flow -- in your situation, it was not likely the result of a new blockage that suddenly worsened. rather, with age, blood pressure, and cholesterol, you've probably had a slowly building blockage of blood vessel over time. with the vomiting (either by dehydration or a vagal episode that would cause a temporary drop in blood pressure) you probably had the stroke by a temporary drop in pressure flowing through a partially blocked artery. (instead of clogging off the artery, think of it as turning down the pressure on the faucet). however, knowing that it happened, we definitely want to take steps to prevent the next one: -aspirin - an 81mg aspirin acts as a good blood thinner for small blood vesse ls. this will help keep new clots from forming in the blood vessels that may have mid-range blockages in them. typically people don't run into much bleeding, occassionally there can be some "nuisance bleeding" like a nosebleed that lasts "too long" or a cut on your hand that looks like a "gusher." fortunately with aspirin, these kinds of bleeds are a rarity, and generally speaking almost all respond to just holding pressure on the bleed for about 10 minutes -atorvastatin - specifically lipitor and crestor are medications that don't just lower cholesterol numbers to reduce how quickly you clog arteries, but they also act to stabilize the plaque that has already built up, reducing the chances it can break open and form clots. seeing that you've had a stroke, that becomes really important on both fronts. as far as reducing cholesterols, we'd want to see your LDL (bad cholesterol) under 70, and your "nonHDL" (subtracting your good (HDL) from your total cholestesrol) to be under 100. for this, as well as for plaque stabilization, it looks like 40mg of atorvastatin (lipitor) should get the job done. most people tolerate statins really well - at the dose you're on it is actually quite unlikely you'll notice any side effects. that said, the most "famous" side effect to watch for with statins is muscle aches. to be clear, it's not an accentuation of aches you might already have, it would be a totally new, out of left field kind of thing - "like you have the flu but you don't have the flu" -- generally if this happens when you stop the med the aches go away over a few days to maybe a few weeks at the worst - but again, the actual incidence of this is really low. your PCP will also follow liver enzymes but it's something that actually is almost never an issue blood pressure - -while we definitely need to get your cholesterols under control to prevent further vascular disease, we might also need to see better improvement in blood pressure as well. in the hospital is a really terrible place to tie worker blood pressures, because the whole hospital stay can more or less be "one long white coat effect" making numbers run higher than you normally would. that said, we d efinitely need to know how you run on a regular basis - if you're running too high that can lead to faster hardening of the arteries. typically the best way to gauge blood pressure control is getting a lot of readings - at random and different times - at home. we'll want you to get your cuff checked for accuracy (at your follow up visit, have them check you with their cuff and then with yours - if the cuffs are within about 10 points of eachother, then it is accurate enough). from there, it would be ideal to check ~2-3 times a day for a few weeks - sometimes first thing in the morning, other times later; when you've just taken your meds, before you take your meds, etc. if you appear to be running high, the easiest answer will likely be just to bump up the dose of your losartan a little. Pending Studies at Discharge: No Stand-Alone Forms: [facility], Smoking Cessation Medications and DC Order Prescriptions: New atorvastatin 40 mg Tablet 40 mg PO QAM Qty: 30 RF: 0 aspirin 81 mg Tablet,Delayed Release (Dr/Ec) 81 mg PO QAM Qty: 30 RF: 0 Continued levothyroxine 112 mcg tablet 112 mcg PO QAM Qty: 30 RF: 5 montelukast 10 mg tablet 10 mg PO DAILY Qty: 90 RF: 1 ipratropium bromide 42 mcg (0.06 %) spray,non-aerosol 2 sprays INTNAS TID Qty: 30 RF: 5 losartan 25 mg tablet 25 mg PO DAILY Qty: 30 RF: 5 pantoprazole 40 mg tablet,delayed release (DR/EC) 40 mg PO DAILY Qty: 90 RF: 1 Discharge Orders: Discharge Order (Routine); Ordered 06/18/20 Ordered By: Mervin Mattson Admission Data Admit Date/Time: 06/17/20 11:35 Attending Provider: Mervin Mattson Admit Provider: Ramon Sutherland Primary Care Provider: Andrew Ramirez III Other Providers: Ramon Sutherland ; Andrew De La Torre Coding Level of Care Code 92187 OBS Care - Discharge Diagnoses Stroke I63.9 Vertigo R42
--- NOTE | 2020-06-18 17:08 | Pharmacy Report ---
Pharmacist Stroke Counseling - Date of Service June 18, 2020 - Scope: Pharmacy has been consulted to provide medication discharge counseling for this patient admitted with [ischemic stroke] [hemorrhagic stroke] [transient ischemic attack] as per the Pharmacist Discharge Counseling for Stroke Patients Prot ocol. - Medications on Discharge: New Rx's Medication Instructions Recorded levothyroxine 112 mcg tablet 112 mcg PO QAM #30 tab 12/23/19 montelukast 10 mg tablet 10 mg PO DAILY #90 tab 02/18/20 ipratropium bromide 42 mcg (0.06 2 sprays INTNAS TID #30 ml 04/08/20 %) nasal spray losartan 25 mg tablet 25 mg PO DAILY #30 tab 05/21/20 pantoprazole 40 mg tablet,delayed 40 mg PO DAILY #90 tab 05/22/20 release aspirin 81 mg PO QAM #30 tab 06/18/20 atorvastatin 40 mg PO QAM #30 tab 06/18/20 - Action: The above medications, specifically ones for stroke treatment/prophylaxis, have been reviewed in detail with the patient and/or patient call center support representative(s) prior to discharge. This includes indication, common adverse reactions, drug interactions, and medication administration. Medication counseling has been employed using the teach-back method to ensure understanding. - Outcome: The patient and/or patient call center support representative(s) have demonstrated understanding of the medications. Thank you for allowing pharmacy to be involved in the care of this patient. Please call [phone] with any additional questions
--- NOTE | 2020-06-18 18:49 | Discharge Summary ---
Date of Service June 18, 2020 Admission HPI Per Admitting Provider Cyn Modi is a 74-year-old female who presents to the ER with acute onset dizziness. Unable to get full history from patient due to altered mental state, therefore majority of history was taken from her at bedside. The patient reports feeling dizzy and unable to see the trees outside her window this morning when she woke up while lying down. reports the patient talked about feeling dizzy approximately 8:30 AM while walking back from the bathroom. This was followed by severe nausea and vomiting. No abdominal pain, diarrhea, constipation. She was feeling her normal baseline self yesterday. She has had similar episodes in the past previously diagnosed as vertigo. She has these episodes 1-2 times a year but have been getting progressively more severe. She usually has 15-second episodes of losing consciousness with these episodes. However on this occasion reports she last vomited for 20 minutes until EMS arrived. He denies any tonic seizure-like activity, urine incontinence or tongue biting. He does report her right arm was shaking similar to what she is experiencing currently in the ER. She continues to be minimally responsive for EMS he struggled to get into the ambulance. Of note she was hospitalized in September with asystole associated with vomiting. She was also diagnosed with vasovagal syncope associated with events which increase her back to times such as micturition. She arrived via EMS and was given Zofran en route she continued ongoing nausea. In the ER she was given 500mL NSS bolus. Her at bedside note she is still altered and not yet back to her normal self. Medicine consulted for admission. On initial assessment the patient was very lethargic with upward gaze arise. However, during taking history the patient was able to wake up considerably and give a brief story of events, orientated x3 and able to complete simple commands. Admission Exam Per Admitting Provider Constitutional: well developed and + lethargic; + not well nourished and no acute distress Eyes: PERRL, conjunctivae normal, anicteric sclerae EOM intact bilaterally; no nystagmus ENMT: external ear and nose normal, oropharynx normal Neck: trachea midline, no thyromegaly Respiratory: normal respiratory effort, lungs clear to auscultation Cardiovascular: RRR, no murmur, no edema Gastrointestinal (Abdomen): normal bowel sounds, soft, nontender, no hepatosplenomegaly Skin: no rashes, warm and dry Neurologic: patellar DTR's 2+ bilat, sensation intact moves all extremities, awake (To voice) and + confused; no focal motor deficits (Difficult examination due to lethargy but equal cost accounting clerk strength b/l, equal lower extremity movements bilaterally) Speech / Cognition: normal speech Motor/Sensory: + tremor (right arm resting); no pronator drift and no sensory deficit Cranial Nerves: EOM intact bilaterally (upward gaze initially but once she was more awake) Psychiatric: Orientation: alert and oriented x 3 Principal Diagnosis Positional vertigo, syncope Discharge Exam Constitutional no acute distress and not ill appearing Respiratory normal respiratory effort, lungs clear to auscultation Cardiovascular RRR, no murmur, no edema Gastrointestinal (Abdomen) normal bowel sounds, soft, nontender, no hepatosplenomegaly Musculoskeletal no cyanosis or clubbing, extremities motor strength 5/5 Neurologic PERRL, EOMI, accommodation nl, no face palsy, no dysarthria Discharge Data Allergies Allergy/AdvReac Type Severity Reaction Status Date / Time morphine Allergy Mild itching Verified 04/16/20 18:40 Consultations 06/17/20 11:14 ED Decision to Admit Stat 06/18/20 05:51 Consult Case Management - Discharge Planning Routine Consult Neurology Routine 06/18/20 15:20 Consult [facility] child protective services social worker Routine 06/18/20 17:09 Consult [facility] child protective services social worker Routine Ordered Studies 06/17/20 10:02 CT angio head wo/w Stat CT angio neck with con Stat 06/17/20 14:26 MR brain IAC wo/w con Routine Hospital Course (1) Vertigo: Cyn Modi is a 74yo female with HTN, HLD, and hypothyroidism who presents with nausea, vomiting, and loss of consciousness in the setting of a 3- 4 year history of infrequent episodes of nausea, vomiting, and loss of consciousness, with imaging concerning for basal ganglia stroke. Nausea, vomiting, syncope Patient was admitted after arriving to the ED with nausea, vomiting, and syncope without head trauma, tonic-clonic movement, urinary incontinence, or tongue biting. Her symptoms had resolved by the time of her arrival. She was admitted for workup and observation. Differential included vasovagal syncope triggered by vomiting, arrhythmia, positional vertigo e.g. BPPV. Neurology examined the patient and recommended a 30-day event monitor to evaluate for possible cardiac causes of syncope. Patient had a complete resolution of symptoms and was discharged after being observed throughout the day. She was hemodynamically stable throughout her entire stay. We recommended workup on an outpatient basis for positional vertigo. Basal ganglia stroke on imaging Patient had a possibly-incidental finding of a lacunar basal ganglia stroke on MRI of the inner ear; however she had no neurologic findings on exam and no apparent deficits. The team decided to add atorvastatin 40mg qd and ASA 81mg to optimize stroke preventative measures. Neurology saw her and agreed with the medication regimen additions as described. Hypertension, hyperlipidemia Patient was continued on her losartan 25mg qd during her stay and atorvastatin 40mg was added as described above. FENGI: LR @ 100mL/hr, regular diet DVT prophylaxis: lovenox Code status: full code Dispo: discharged home today (2) Stroke: (3) Syncope and collapse: (4) Hypothyroidism: (5) Hypertension: Total Time Total Time Spent Total Time Spent (In Minutes): see attending documentation Discharge Plan Discharge Items Patient Disposition: Home - Self-Care Reason For Visit: DIZZINESS, DROWINESS Discharge Diagnosis: Nausea, vomiting, syncope Activity: Resume your previous activity Non-emergency contact: Primary Care Provider Call non-emergency contact if: you have any medication questions and your sympto ms worsen Follow-up/Referrals: Andrew Ramirez III, CRNP [Primary Care Provider] - Diet: Heart Healthy Addtl Attending Provider Instructions: vertigo -your vertigo episodes seem quite consistent with positional vertigo -as we discussed, this is usually because of a crystal of salt that's fallout out into the inner ear. remember that the inner ear is an arch of fluid lined with hair cells - so when you move, the fluid washes across those hair cells and gives us a relative sense of motion. with positional vertigo - that crystal of salt "bumps" across the hair cells and causes the nerves to tell your brain you're moving even though you're not. because your eyes don't see motion, and the nerves in your hands and feet don't feel motion, but your inner ear says "we're moving," your brain will generate a terrible spinning vertigo sensation as a result. -while most positional vertigo gets better over time, when it's really bad and when it persists like yours does, it can be helpful to do a specific type of therapy called "vestibular retraining." with this, a physical therapist basically tries to "shake the rock loose" with some maneuvers, and often can help w balance/vertiginous sensations/etc as well. with what has happened with you with bad vertigo episodes, it's totally understandable to be reticent to do any therapy given that some of the maneuvers do make people feel worse when they're doing them, but, as we discussed, they may have some "less provoking" things they can try that might help. what we'd recommend is that you at least meet with a vestibular therapist to discuss your situation, and they can talk you through what they would do, and then you can decide to proceed or not. that way, if there are ways they could help, you're not cheating yourself out of a chance to improve; and conversely, if anything that they could offer sounds like things you would not want to do, you at least have the closure of knowing that you got more information/etc -for now, definitely do your best to take it easy and avoid the positions and changes in positions that make you feel vertiginous stroke -as really almost an incidental finding, the MRI of your brain that was done to look for any inner ear anatomic issues (none noted) or tumors that can cause dizziness (none found) did show a small area of stroke. stroke is damaged brain tissue from lack of blood flow -- in your situation, it was not likely the result of a new blockage that suddenly worsened. rather, with age, blood pressure, and cholesterol, you've probably had a slowly building blockage of blood vessel over time. with the vomiting (either by dehydration or a vagal episode that would cause a temporary drop in blood pressure) you probably had t he stroke by a temporary drop in pressure flowing through a partially blocked artery. (instead of clogging off the artery, think of it as turning down the pressure on the faucet). however, knowing that it happened, we definitely want to take steps to prevent the next one: -aspirin - an 81mg aspirin acts as a good blood thinner for small blood vessels. this will help keep new clots from forming in the blood vessels that may have mid-range blockages in them. typically people don't run into much bleeding, occassionally there can be some "nuisance bleeding" like a nosebleed that lasts "too long" or a cut on your hand that looks like a "gusher." fortunately with aspirin, these kinds of bleeds are a rarity, and generally speaking almost all respond to just holding pressure on the bleed for about 10 minutes -atorvastatin - specifically lipitor and crestor are medications that don't just lower cholesterol numbers to reduce how quickly you clog arteries, but they also act to stabilize the plaque that has already built up, reducing the chances it can break open and form clots. seeing that you've had a stroke, that becomes really important on both fronts. as far as reducing cholesterols, we'd want to see your LDL (bad cholesterol) under 70, and your "nonHDL" (subtracting your good (HDL) from your total cholestesrol) to be under 100. for this, as well as for plaque stabilization, it looks like 40mg of atorvastatin (lipitor) should get the job done. most people tolerate statins really well - at the dose you're on it is actually quite unlikely you'll notice any side effects. that said, the most "famous" side effect to watch for with statins is muscle aches. to be clear, it's not an accentuation of aches you might already have, it would be a totally new, out of left field kind of thing - "like you have the flu but you don't have the flu" -- generally if this happens when you stop the med the aches go away over a few days to maybe a few weeks at the worst - but again, the actual incidence of this is really low. your PCP will also follow liver enzymes but it's something that actually is almost never an issue blood pressure - -while we definitely need to get your cholesterols under control to prevent further vascular disease, we might also need to see better improvement in blood pressure as well. in the hospital is a really terrible place to compression molding machine setter blood pressures, because the whole hospital stay can more or less be "one long white coat effect" making numbers run higher than you normally would. that said, we definitely need to know how you run on a regular basis - if you're running too high that can lead to faster hardening of the arteries. typically the best way to gauge blood pressure control is getting a lot of readings - at random and different times - at home. we'll want you to get your cuff checked for accuracy (at your follow up visit, have them check you with their cuff and then with yours - if the cuffs are within about 10 points of eachother, then it is accurate enough). from there, it would be ideal to check ~2-3 times a day for a few weeks - sometimes first thing in the morning, other times later; when you've just taken your meds, before you take your meds, etc. if you appear to be running high, the easiest answer will likely be just to bump up the dose of your losartan a little. Pending Studies at Discharge: No Stand-Alone Forms: My [facility] Per Vices, Smoking Cessation Medications and DC Order Prescriptions: New atorvastatin 40 mg Tablet 40 mg PO QAM Qty: 30 RF: 0 aspirin 81 mg Tablet,Delayed Release (Dr/Ec) 81 mg PO QAM Qty: 30 RF: 0 Continued levothyroxine 112 mcg tablet 112 mcg PO QAM Qty: 30 RF: 5 montelukast 10 mg tablet 10 mg PO DAILY Qty: 90 RF: 1 ipratropium bromide 42 mcg (0.06 %) spray,non-aerosol 2 sprays INTNAS TID Qty: 30 RF: 5 losartan 25 mg tablet 25 mg PO DAILY Qty: 30 RF: 5 pantoprazole 40 mg tablet,delayed release (DR/EC) 40 mg PO DAILY Qty: 90 RF: 1 Discharge Orders: Discharge Order (Routine); Ordered 06/18/20 Ordered By: Mervin Mattson Admission Data Admit Date/Time: 06/17/20 11:35 Attending Provider: Mervin Mattson Admit Provider: Ramon Sutherland Primary Care Provider: Andrew Ramirez III Other Providers: Ramon Sutherland ; Andrew De La Torre Other Interventions: Discharge Summary Assessment (RN) Last Done: 06/18/20 17:13 Resident Activity Tracking Resident Involvement: Resident Care Provided Care Provided: Adult Hospital Medicine
== END 2020-06-18 17:52 | disposition home or self-care (01) ==
LOC: ED 09:57 → 2N 09:57 → SUATTDRO 11:35 → 2N 13:14

== ENCOUNTER 2025-08-27 02:50 | Inpatient (IN) ==
[2025-08-27 03:39] LABS: Hematocrit (blood only) 40.2 % (37.0-47.0); Hemoglobin 13.6 g/dL (12.0-16.0); Immature Granulocytes # (auto) 0.01 K/uL (0.01-0.20); Immature Granulocytes % (auto) 0.2 %; Mean Corpuscular Hemoglobin 31.5 pg (25.0-34.0); Mean Corpuscular Volume 93.1 fL (80.0-100.0); Platelet Count 158 K/uL (130-400); RDW Standard Deviation 44.7 fL (36.4-46.3); Red Blood Count 4.32 M/uL (4.20-5.40); White Blood Count 5.50 K/ul (4.8-10.8)
--- NOTE | 2025-08-27 03:53 | Emergency Department Note ---
History of Present Illness General Chief complaint: Syncope Stated complaint: SYNCOPE, SICK FOR FEW DAYS Time Seen by Provider: 08/27/25 03:20 History of Present Illness This is an 80-year-old female presenting to the emergency department for evaluation of multiple syncopal episodes today. The patient has been ill with flulike symptoms for the past 3 to 4 days. Her tested positive for influenza A today. The patient has a history of diabetes and COPD. She is coughing with some difficulty breathing. No distinct fever is reported. She has been eating and drinking as normal. She rates her current discomfort a 7/10. Home Medications Medication Instructions Recorded Confirmed Type aspirin 81 mg tablet,delayed 81 mg PO QAM #30 tabs 06/18/20 05/06/25 Rx release multivitamin (Daily Multi-Vitamin 1 tab PO QAM 07/24/20 05/06/25 History tablet) albuterol sulfate 90 mcg/actuation 1 inh inhalation UD PRN as directed 04/08/21 05/06/25 History aerosol inhaler (Ventolin HFA) fexofenadine 180 mg tablet 180 mg PO QAM 04/08/21 05/06/25 History umeclidinium 62.5 mcg-vilanterol 1 inh inhalation UD PRN as directed 04/08/21 05/06/25 History 25 mcg/actuation powdr for inhalation (Anoro Ellipta) biotin 10,000 mcg capsule 10,000 mcg PO DAILY 10/25/22 05/06/25 History ondansetron 8 mg disintegrating 8 mg PO Q8H PRN nausea and 10/25/22 05/06/25 Rx tablet vomiting #20 tabs levothyroxine 112 mcg tablet See Rx Instructions .Route 09/06/24 05/06/25 Rx .COMPLEX #90 tabs hydrochlorothiazide 25 mg tablet 25 mg PO DAILY #90 tabs 01/20/25 05/06/25 Rx pantoprazole 40 mg tablet,delayed See Rx Instructions .Route 01/20/25 05/06/25 Rx release .COMPLEX #90 tabs ipratropium bromide 42 mcg (0.06 2 spray intranasal UD PRN Nasal 03/10/25 05/06/25 Rx %) nasal spray Congestion #15 mL losartan 25 mg tablet 25 mg PO HS #90 tabs 03/25/25 05/06/25 Rx atorvastatin 40 mg tablet See Rx Instructions .Route 04/17/25 05/06/25 Rx .COMPLEX #90 tabs montelukast 10 mg tablet See Rx Instructions .Route 04/17/25 05/06/25 Rx .COMPLEX #90 tabs probiotic PO DAILY 05/06/25 History Allergies Allergy/AdvReac Type Severity Reaction Status Date / Time meclizine AdvReac Intermediate Vomiting Verified 05/06/25 08:46 morphine AdvReac Mild itching Verified 05/06/25 08:46 Past Med/Surg History Problem List (Updated 08/27/25 @ 07:18 by Armando Andino PA-C) Acute kidney injury Acute respiratory failure with hypoxia (Acute) Right lower lobe pneumonia (Acute) Influenza A (Acute) Hypertension (Chronic) Type 2 diabetes mellitus (Chronic) Hypothyroidism (Chronic) H/O: stroke Degenerative arthritis of hip Gastro-esophageal reflux (Chronic) Hyperlipidemia (Chronic) Osteopenia Chronic obstructive pulmonary disease, unspecified (Chronic) Chronic sinusitis (Chronic) Solitary pulmonary nodule (Chronic) Medical History Lacunar infarction Stroke Seasonal allergies Thyroid disease Uterine cancer HX , COMPLETE HYSTERECTOMY Surgical History Hx of left cataract extraction History of cataract surgery had the L eye done 04/20/21 will be having R eye done 05/04/21 History of arthroscopy of left knee History of colonoscopy History of colonoscopy with polypectomy History of hysterectomy (~2006) secondary to uterine cancer History of appendectomy Family History Mother Dementia Asthma Brother Cardiovascular disease Myocardial infarction Asthma Family history of diabetes mellitus Sister Ovarian cancer Colonic polyp Asthma Family history of diabetes mellitus Cancer Father Dementia Sister Family history of diabetes mellitus Denies family history of Prostate cancer Breast cancer Colorectal cancer Social History Smoking Status: Never smoker Second Hand Exposure: No; Do You Dip or Chew Tobacco: No; Hx Alcohol Use: No Hx Substance Use: No Preferred Language: Vietnamese Communication Ability: Effective Visual Impairment: Partially Limited Hearing Ability: Normal Seo Associate Required: No Beliefs That Will Affect Care: None marital status: Current Living Situation: Spouse Current Living Situation Comment: current occupational status: retired 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 [employer] How many Children do You have: 1 Feels Safe at Home: Yes Childhood Exposure to Second-Hand Smoke: No Diet: regular caffeine: Yes (soda ) during the past year weight has: remained stable Dental Care, Regularly: Yes Physical Activity Frequency: Daily Seatbelt Use: always Sunscreen Use: No (does not go out into the sun ) Assistive Devices: Denture - Upper and Glasses Review of Systems A total of 10 systems reviewed and were otherwise negative Physical Exam Vital Signs Vital Signs - 24 hr 08/27/25 02:59 08/27/25 03:03 08/27/25 03:20 Pulse Rate 63 Pulse Rate [Apical] Pulse Rate from SpO2 Sensor Pulse Rhythm Respiratory Rate Respiratory Effort / Characteristics Respiratory Depth Respiratory Pattern Blood Pressure 101/53 L Blood Pressure [Left Arm] Blood Pressure Mean 57 Blood Pressure Mean [Left Arm] Blood Pressure Position [Left Arm] Pulse Oximetry Oxygen Delivery Method Oxygen Flow Rate Sepsis Recent Fever Within 48 Hours No Sepsis New/Unexplained Change in Mental Status No Sepsis Action Taken by Nursing No Action Required Oxygen Flow Rate - Titration 08/27/25 03:28 08/27/25 04:00 08/27/25 05:00 Pulse Rate 67 65 70 Pulse Rate [Apical] Pulse Rate from SpO2 Sensor 64 70 Pulse Rhythm Regular Respiratory Rate 16 18 18 Respiratory Effort / Characteristics Respiratory Depth Respiratory Pattern Blood Pressure 114/73 117/77 Blood Pressure [Left Arm] Blood Pressure Mean 86 90 Blood Pressure Mean [Left Arm] Blood Pressure Position [Left Arm] Pulse Oximetry 95 97 93 Oxygen Delivery Method Room Air Room Air Room Air Oxygen Flow Rate Sepsis Recent Fever Within 48 Hours Sepsis New/Unexplained Change in Mental Status Sepsis Action Taken by Nursing Oxygen Flow Rate - Titration 08/27/25 05:15 08/27/25 06:12 08/27/25 06:27 Pulse Rate 67 70 Pulse Rate [Apical] Pulse Rate from SpO2 Sensor 67 68 Pulse Rhythm Respiratory Rate 18 22 Respiratory Effort / Characteristics Respiratory Depth Respiratory Pattern Blood Pressure 104/59 L 107/54 L Blood Pressure [Left Arm] Blood Pressure Mean 74 71 Blood Pressure Mean [Left Arm] Blood Pressure Position [Left Arm] Pulse Oximetry 88 L 96 95 Oxygen Delivery Method Room Air Nasal Cannula Nasal Cannula Nasal Cannula Oxygen Flow Rate 0 2 2 Sepsis Recent Fever Within 48 Hours Sepsis New/Unexplained Change in Mental Status Sepsis Action Taken by Nursing Oxygen Flow Rate - Titration 2 08/27/25 06:33 08/27/25 06:37 08/27/25 06:56 Pulse Rate 64 66 Pulse Rate [Apical] 58 L Pulse Rate from SpO2 Sensor 64 Pulse Rhythm Respiratory Rate 17 14 Respiratory Effort / Characteristics Non-Labored Spontaneous Respiratory Depth Respiratory Pattern Blood Pressure Blood Pressure [Left Arm] Blood Pressure Mean Blood Pressure Mean [Left Arm] Blood Pressure Position [Left Arm] Pulse Oximetry 96 96 Oxygen Delivery Method Nasal Cannula Oxygen Flow Rate 2 Sepsis Recent Fever Within 48 Hours Sepsis New/Unexplained Change in Mental Status Sepsis Action Taken by Nursing Oxygen Flow Rate - Titration 08/27/25 07:00 Pulse Rate Pulse Rate [Apical] 63 Pulse Rate from SpO2 Sensor Pulse Rhythm Respiratory Rate 18 Respiratory Effort / Characteristics Non-Labored Spontaneous Respiratory Depth Normal Respiratory Pattern Regular Blood Pressure Blood Pressure [Left Arm] 93/56 L Blood Pressure Mean Blood Pressure Mean [Left Arm] 68 Blood Pressure Position [Left Arm] Lying Pulse Oximetry 98 Oxygen Delivery Method Room Air Oxygen Flow Rate Sepsis Recent Fever Within 48 Hours Sepsis New/Unexplained Change in Mental Status Sepsis Action Taken by Nursing Oxygen Flow Rate - Titration VITALS: Vitals are noted on the nurse's note and reviewed by myself. Vital signs stable. GENERAL: White female who appears ill but not toxic. She seems fatigued on arrival but overall pleasant. HEAD: Normocephalic atraumatic. MOUTH: Mucous membranes moist. Pharynx without erythema, blood, or exudate. Uvula midline. Airway patent. NECK: Supple without nuchal rigidity. No lymphadenopathy. No thyromegaly. Cervical spine is nontender. HEART: Regular rate and rhythm without murmurs gallops or rubs. LUNGS: Diffuse wheezing and rhonchi throughout ABDOMEN: Positive normal bowel sounds x 4. Soft, nontender, without masses or organomegaly. No guarding or rebound tenderness. MUSCULOSKELETAL: No muscle atrophy, erythema, or edema noted. Full range of motion in all extremities. Course Administered Medications Albuterol (Albut/Ipratrop 3mg/0.5mg Neb 3 Ml Vial) 3 ml NEB QIDR [facility]; Protocol Stop: 09/26/25 06:59 Last Admin: 08/27/25 06:55 Dose: 3 ml Documented By: JAZMIN Sodium Chloride (Nss) 1,000 mls @ 80 mls/hr IV .[id number] DARRYL Stop: 08/27/25 18:29 Last Admin: 08/27/25 06:17 Dose: 80 mls/hr Documented By: ERMELINDA Azithromycin (Zithromax) 500 mg in 255 mls @ 127.5 mls/hr IV NOW ONE Stop: 08/27/25 08:14 Last Admin: 08/27/25 06:38 Dose: 127.5 mls/hr Documented By: ERMELINDA Discontinued Medications Albuterol (Albut/Ipratrop 3mg/0.5mg Neb 3 Ml Vial) 3 ml NEB NOW STA; Protocol Stop: 08/27/25 03:45 Last Admin: 08/27/25 03:59 Dose: 3 ml Documented By: ERMELINDA Pantoprazole Sodium (Protonix) 40 mg in 10 mls @ 5 mls/min IV NOW ONE Stop: 08/27/25 05:50 Last Admin: 08/27/25 06:18 Dose: 5 mls/min Documented By: ERMELINDA Ceftriaxone Sodium (Rocephin) 2,000 mg in 50 mls @ 100 mls/hr IV NOW ONE Stop: 08/27/25 06:44 Last Admin: 08/27/25 06:19 Dose: 100 mls/hr Documented By: ERMELINDA Methylprednisolone (Methylprednisolone 125 Mg/2 Ml Vial) 125 mg IV NOW STA Stop: 08/27/25 05:46 Last Admin: 08/27/25 06:18 Dose: 125 mg Documented By: ERMELINDA Medical Decision Making Differential Diagnosis Differential diagnosis: Etiologies such as vasovagal event, infection, anemia, hypoglycemia, hypovolemia, electrolyte abnormalities, dysrhythmias, cardiac ischemia, cardiac tamponade, valvular heart disease, structural heart disease, seizure, vascular stenosis/dissection, pulmonary embolism, intracerebral event, toxicological process, neurologic event, as well as others were entertained. Laboratory Data 08/27/25 03:01 08/27/25 03:01 Lab Results 08/27/25 08/27/25 Range/Units 03:01 03:20 WBC 5.50 (4.8-10.8) K/ul RBC 4.32 (4.20-5.40) M/uL Hgb 13.6 (12.0-16.0) g/dL Hct 40.2 (37.0-47.0) % MCV 93.1 (80.0-100.0) fL MCH 31.5 (25.0-34.0) pg MCHC 33.8 (32.0-36.0) g/dL RDW Std Deviation 44.7 (36.4-46.3) fL RDW Coeff of Ruben 13.0 (11.5-14.5) % Plt Count 158 (130-400) K/uL MPV 11.9 (9.4-12.4) fL Immature Gran % (Auto) 0.2 % Neut % (Auto) 45.4 % Lymph % (Auto) 31.6 % [place] % (Auto) 18.9 % Eos % (Auto) 3.5 % Baso % (Auto) 0.4 % Neut # (Auto) 2.50 (1.40-6.50) K/uL Lymph # (Auto) 1.74 (1.20-3.40) K/uL [place] # (Auto) 1.04 H (0.11-0.59) K/uL Eos # (Auto) 0.19 (0.00-0.50) K/uL Baso # (Auto) 0.02 (0.00-0.20) K/uL Immature Gran # (Auto) 0.01 (0.01-0.20) K/uL Sodium 139 (136-145) mmol/L Potassium 3.7 (3.5-5.1) mmol/L Chloride 103 (98-107) mmol/L Carbon Dioxide 24 (21-32) mmol/L Anion Gap 12 H (3-11) BUN 35 H (6-23) mg/dl Creatinine 1.51 H (0.6-1.2) mg/dl Est Cr Clr Drug Dosing 34.5 ml/min eGFR 34.73 BUN/Creatinine Ratio 23.2 H (10-20) Glucose 116 H (70-99(Fasting)) mg/dl Calcium 8.5 L (8.6-10.3) mg/dl Magnesium 2.1 (1.7-2.4) mg/dl Total Bilirubin 0.6 (0.2-1.0) mg/dl AST 40 H (13-39) U/L ALT 40 (7-52) U/L Alkaline Phosphatase 51 (34-104) U/L Troponin I High Sens 4.1 (0-14) pg/ml Total Protein 6.7 (6.0-8.3) gm/dl Albumin 3.8 (3.4-5.0) gm/dl Globulin 2.9 (2.5-4.0) gm/dl Albumin/Globulin Ratio 1.3 (0.9-2) TSH 3.592 (0.300-4.500) uIu/ml SARS-CoV-2 (PCR) NEGATIVE (Negative) Influenza Type A (PCR) Positive A (Neg) Influenza Type B (PCR) Negative (Neg) RSV (RT-PCR) Negative (Neg) Imaging Data Radiologist's Impression: Chest X-Ray 08/27/25 03:44 EXAM: XR chest 1V portable CLINICAL HISTORY: syncope, flu like TECHNIQUE: An X-ray image of the chest is obtained in AP projection. COMPARISON: 12/12/2021 02:49:11 GUIDE TOUR. FINDINGS: Ill-defined ground-glass opacity noted in right lower zone - likely pneumonitis. The lungs are clear and well-expanded with no pulmonary infiltrate or pleural effusion. The cardiomediastinal silhouette is within normal limits. No acute osseous abnormality. IMPRESSION: Ill-defined ground-glass opacity noted in right lower zone - likely pneumonitis.-stable. Right pleural effusion is resolved. Electronically signed by Gama Hart 08-27-2025 05:42 AM ECG Data Attestation: I personally reviewed and interpreted this ECG as follows: Indication: + syncope Additional Comments: Normal sinus rhythm at [address] elevation or ectopy No significant change when compared to 12 December 2021 [facility] Narrative Physical exam and history were performed. Nursing notes, EMR, and Medication List were personally reviewed. No social concerns were identified as barriers to patients care. History was provided by the Patient and who is at bedside. Patient appears to have flulike symptoms bringing her to the ER. She reportedly had several episodes of syncope today. tested positive for influenza A today. IV access was established and labs were obtained. Patient was given a DuoNeb here in the ER to assist with her breathing. Chest x-ray performed. An order was placed for continuous cardiac monitoring. The monitor shows a rate of 61 with normal sinus rhythm. Patient's blood work is as above and reviewed. Patient does not have a significant elevated white blood cell count, gross anemia, bandemia or significant electrolyte imbalance. Transaminases not diagnostic. Troponin x 1 negative. Viral panel did return POSITIVE for influenza A. Chest x-ray was reviewed by myself and radiology and may suggest a right lower lobe infiltrate. Escalation of care was considered, and is felt to be necessary. The patient is influenza A positive and seems unwell. She is with adventitious breath sounds and maintaining an oxygen around 91%. I did discuss the case with my attending, as well as the on-call hospitalist team. Please see hospitalist team dictation for further patient course, plan, disposition. The chart was completed utilizing [employer] Voice Recognition Software. Grammatical errors, random word insertions, pronoun errors, and incomplete sentences are an occasional consequence of this system due to software limitations, ambient noise, and hardware issues. Any formal questions or concerns about the content, text, or information contained within the body of this dictation should be directly addressed to the provider for clarification. Impression & Plan Influenza A, Right lower lobe pneumonia, Acute respiratory failure with hypoxia Discharge Plan Visit Data Chief Complaint: Syncope Stated Complaint: SYNCOPE, SICK FOR FEW DAYS ED Provider: Aure F[facility] ED Midlevel Provider: Armando Andino Discharge Problem: Influenza A, Right lower lobe pneumonia, Acute respiratory failure with hypoxia Patient Disposition: Being Evaluated by Hospitalist Condition: Fair Forms Stand Alone Forms: My [facility] Prescriptions Prescriptions: No Action levothyroxine 112 mcg tablet See Rx Instructions .ROUTE .COMPLEX Qty: 90 3RF Dose Instruction: TAKE 1 TABLET BY MOUTH EVERY DAY IN THE MORNING Rx Instructions: TAKE 1 TABLET BY MOUTH EVERY DAY IN THE MORNING pantoprazole 40 mg tablet,delayed release (DR/EC) See Rx Instructions .ROUTE .COMPLEX Qty: 90 3RF Dose Instruction: TAKE 1 TABLET BY MOUTH DAILY IN THE MORNING 30 MINUTES BEFORE BREAKFAST DAILY Rx Instructions: TAKE 1 TABLET BY MOUTH DAILY IN THE MORNING 30 MINUTES BEFORE BREAKFAST DAILY hydrochlorothiazide 25 mg tablet 25 mg PO DAILY Qty: 90 3RF ipratropium bromide 42 mcg (0.06 %) spray,non-aerosol 2 spray INTNAS UD PRN (Reason: Nasal Congestion) Qty: 15 5RF losartan 25 mg tablet 25 mg PO HS Qty: 90 3RF montelukast 10 mg tablet See Rx Instructions .ROUTE .COMPLEX Qty: 90 3RF Dose Instruction: TAKE 1 TABLET BY MOUTH AT BEDTIME Rx Instructions: TAKE 1 TABLET BY MOUTH AT BEDTIME atorvastatin 40 mg tablet See Rx Instructions .ROUTE .COMPLEX Qty: 90 3RF Dose Instruction: TAKE 1 TABLET BY MOUTH EVERY DAY IN THE EVENING Rx Instructions: TAKE 1 TABLET BY MOUTH EVERY DAY IN THE EVENING biotin 10,000 mcg capsule 10,000 mcg PO DAILY Patient Comments: biotin + keratin ondansetron 8 mg tablet,disintegrating 8 mg PO Q8H PRN (Reason: nausea and vomiting) Qty: 20 0RF multivitamin [Daily Multi-Vitamin] Tablet 1 tab PO QAM Patient Comments: centrum silver women 50+ probiotic 60 mg PO DAILY aspirin 81 mg Tablet,Delayed Release (Dr/Ec) 81 mg PO QAM Qty: 30 0RF fexofenadine 180 mg Tablet 180 mg PO QAM albuterol sulfate [Ventolin HFA] 90 mcg/actuation Hfa Aerosol Inhaler 1 inh INHALATION UD PRN (Reason: as directed) Patient Comments: no use for yrs Anoro Ellipta 62.5-25 mcg/actuation blister with device 1 inh inhalation UD PRN (Reason: as directed) Patient Comments: no use for yrs Referrals Referrals: Andrew Ramirez III, CRNP [Primary Care Provider] -
[2025-08-27 03:56] LABS: Alanine Aminotransferase 40.0 U/L (7-52); Albumin Globulin Ratio 1.3 (0.9-2); Albumin Level 3.8 gm/dl (3.4-5.0); Alkaline Phosphatase 51.0 U/L (34-104); Anion Gap 12.0 (3-11); Bilirubin,Total 0.6 mg/dl (0.2-1.0); Blood Urea Nitrogen 35.0 mg/dl (6-23); Calcium 8.5 mg/dl (8.6-10.3); Carbon Dioxide 24.0 mmol/L (21-32); Chloride 103.0 mmol/L (98-107); Creatinine Clr Calc Pharmacy 34.5 ml/min; Globulin 2.9 gm/dl (2.5-4.0); Glucose 116.0 mg/dl (70-99(Fasting)); Magnesium 2.1 mg/dl (1.7-2.4); Potassium 3.7 mmol/L (3.5-5.1); Sodium 139.0 mmol/L (136-145); Total Protein 6.7 gm/dl (6.0-8.3)
[2025-08-27] MEDS: ALBUT/IPRATROP 3MG/0.5MG NEB 3 ML VIAL NEB STA (03:59)
[2025-08-27 04:14] LABS: Influenza A virus by PCR Positive (Neg); Influenza B virus by PCR Negative (Neg); SARS CoV2 RNA(COVID-19) Ceph NEGATIVE (Negative)
--- NOTE | 2025-08-27 04:44 | Emergency Department Note ---
ED Visit Note I was consulted by the Advanced Practice Provider. I personally made/approved the management plan and take responsibility for the patient management. I performed a substantive portion of the visit. This includes the aspects of: -Personally seeing the patient -MDM -I independently interpreted the following studies: for chest x-ray- Opacity noted in the right lower lung .
[2025-08-27 05:12] LABS: Thyroid Stimulating Hormone 3.592 uIu/ml (0.300-4.500)
--- NOTE | 2025-08-27 05:43 | XRay Report ---
EXAM: XR chest 1V portable CLINICAL HISTORY: syncope, flu like TECHNIQUE: An X-ray image of the chest is obtained in AP projection. COMPARISON: 12/12/2021 02:49:11 [employer]. FINDINGS: Ill-defined ground-glass opacity noted in right lower zone - likely pneumonitis. The lungs are clear and well-expanded with no pulmonary infiltrate or pleural effusion. The cardiomediastinal silhouette is within normal limits. No acute osseous abnormality. IMPRESSION: Ill-defined ground-glass opacity noted in right lower zone - likely pneumonitis.-stable. Right pleural effusion is resolved. Electronically signed by Gama Hart 08-27-2025 05:42 AM
[2025-08-27] MEDS ORDERED: ACETAMINOPHEN 1,000 MG/100 ML VIAL IV PRN (05:48)
[2025-08-27] MEDS ORDERED: PROCHLORPERAZINE 10 MG in SYRINGE 8 ML IV PRN (05:52)
--- NOTE | 2025-08-27 06:16 | History & Physical Report ---
Date of Service August 27, 2025 Assessment & Plan (1) Influenza A: (2) Right lower lobe pneumonia: (3) Acute respiratory failure with hypoxia: (4) Acute kidney injury: Plan The patient is an 80-year-old female with a past medical history including hypertension, diabetes mellitus type 2, hypothyroidism, history of CVA, hip degenerative arthritis, GERD, hyperlipidemia, osteopenia, COPD, and solitary. Pulmonary nodule her provides the HPI and review of systems, as the p atient is very lethargic, fatigued, and unable to answer questions. He reports that 3 days ago she started to develop generalized fatigue, myalgias, shortness of breath, dyspnea on exertion, and productive cough, all of which were gradually worsening. Today, while she was in the bathroom, he heard her yell out for help, and found her unresponsive on the bathroom floor. He called EMS this evening, who who brought her into the emergency department. She reportedly was recently able to respond to EMS upon arrival. At this time in the emergency department, she is very fatigued, somewhat lethargic, and minimally able to respond to questioning. Workup in the emergency department included a normal CBC with differential. Creatinine was elevated 1.51 compared to baseline of 1.0 to. COVID testing and RSV testing were negative. Influenza A was positive and influenza B was negative. From the ED she received a DuoNeb treatment, and was referred to [facility]ist service for admission. Review of x-ray in the emergency department revealed a right lower lobe infiltrate. Pulse ox dropped to the mid 80s in the emergency department while she was asleep, and did improve to the mid 90s when stimulated. #Acute respiratory failure with hypoxia/influenza A/secondary bacterial right lower lobe pneumonia/COPD- NPO Start Tamiflu 75 mg p.o. twice daily Give methylprednisolone 125 mg IV now, then 40 mg IV every 8 hours Ceftriaxone 2 g IV every 24 hours Azithromycin 500 mg IV every 24 hours Duonebs every 4 hours while awake and every 2 hours when necessary. Nasal cannula oxygen, titrate to keep pulse ox 94-95% Acetaminophen 1 g IV every 8 hours as needed for mild pain or fever Droplet precautions Ultimately would plan to return to outpatient inhalers of Anoro Ellipta, Ventolin HFA, and montelukast. #Syncopal episode/lethargy/metabolic encephalopathy- Secondary to physiologic stress of above infection, dehydration, uremia Follow on monitor for possible arrhythmia and to monitor oxygen status. #Acute kidney injury- Creatinine 1.51, with base 1.02- Placed on NSS at 80 mL/h x 1 L Hold HCTZ and losartan Repeat laboratories in the a.m. #Hypothyroidism- Resume levothyroxine on 08/28 #Hypertension- Holding HCTZ and losartan due to acute kidney injury, and relatively low blood pressure #Hyperlipidemia- Hold atorvastatin and aspirin while n.p.o. #Allergic symptoms- Hold fexofenadine while n.p.o. #GERD- Change pantoprazole from 40 mg p.o. daily to 40 mg IV daily while n.p.o. History of Present Illness Primary Care Provider: Andrew Ramirez III, PRAMOD The patient is an 80-year-old female with a past medical history including hypertension, diabetes mellitus type 2, hypothyroidism, history of CVA, hip degenerative arthritis, GERD, hyperlipidemia, osteopenia, COPD, and solitary. Pulmonary nodule her provides the HPI and review of systems, as the dede ent is very lethargic, fatigued, and unable to answer questions. He reports that 3 days ago she started to develop generalized fatigue, myalgias, shortness of breath, dyspnea on exertion, and productive cough, all of which were gradually worsening. Today, while she was in the bathroom, he heard her yell out for help, and found her unresponsive on the bathroom floor. He called EMS this evening, who who brought her into the emergency department. She reportedly was recently able to respond to EMS upon arrival. At this time in the emergency department, she is very fatigued, somewhat lethargic, and minimally able to respond to questioning. Workup in the emergency department included a normal CBC with differential. Creatinine was elevated 1.51 compared to baseline of 1.0 to. COVID testing and RSV testing were negative. Influenza A was positive and influenza B was negative. From the ED she received a DuoNeb treatment, and was referred to [facility] service for admission. Allergies Allergy/AdvReac Type Severity Reaction Status Date / Time meclizine AdvReac Intermediate Vomiting Verified 05/06/25 08:46 morphine AdvReac Mild itching Verified 05/06/25 08:46 Home Medications Medication Instructions Recorded Confirmed Type aspirin 81 mg tablet,delayed 81 mg PO QAM #30 tabs 06/18/20 05/06/25 Rx release multivitamin (Daily Multi-Vitamin 1 tab PO QAM 07/24/20 05/06/25 History tablet) albuterol sulfate 90 mcg/actuation 1 inh inhalation UD PRN as directed 04/08/21 05/06/25 History aerosol inhaler (Ventolin HFA) fexofenadine 180 mg tablet 180 mg PO QAM 04/08/21 05/06/25 History umeclidinium 62.5 mcg-vilanterol 1 inh inhalation UD PRN as directed 04/08/21 05/06/25 History 25 mcg/actuation powdr for inhalation (Anoro Ellipta) biotin 10,000 mcg capsule 10,000 mcg PO DAILY 10/25/22 05/06/25 History ondansetron 8 mg disintegrating 8 mg PO Q8H PRN nausea and 10/25/22 05/06/25 Rx tablet vomiting #20 tabs levothyroxine 112 mcg tablet See Rx Instructions .Route 09/06/24 05/06/25 Rx .COMPLEX #90 tabs hydrochlorothiazide 25 mg tablet 25 mg PO DAILY #90 tabs 01/20/25 05/06/25 Rx pantoprazole 40 mg tablet,delayed See Rx Instructions .Route 01/20/25 05/06/25 Rx release .COMPLEX #90 tabs ipratropium bromide 42 mcg (0.06 2 spray intranasal UD PRN Nasal 03/10/25 05/06/25 Rx %) nasal spray Congestion #15 mL losartan 25 mg tablet 25 mg PO HS #90 tabs 03/25/25 05/06/25 Rx atorvastatin 40 mg tablet See Rx Instructions .Route 04/17/25 05/06/25 Rx .COMPLEX #90 tabs montelukast 10 mg tablet See Rx Instructions .Route 04/17/25 05/06/25 Rx .COMPLEX #90 tabs probiotic PO DAILY 05/06/25 History Past Med/Surg History Problem List (Updated 08/27/25 @ 06:08 by Jamarcus Doran MD) Acute kidney injury Acute respiratory failure with hypoxia Right lower lobe pneumonia Influenza A Hypertension (Chronic) Type 2 diabetes mellitus (Chronic) Hypothyroidism (Chronic) H/O: stroke Degenerative arthritis of hip Gastro-esophageal reflux (Chronic) Hyperlipidemia (Chronic) Osteopenia Chronic obstructive pulmonary disease, unspecified (Chronic) Chronic sinusitis (Chronic) Solitary pulmonary nodule (Chronic) Medical History Lacunar infarction Stroke Seasonal allergies Thyroid disease Uterine cancer HX , COMPLETE HYSTERECTOMY Surgical History Hx of left cataract extraction History of cataract surgery had the L eye done 04/20/21 will be having R eye done 05/04/21 History of arthroscopy of left knee History of colonoscopy History of colonoscopy with polypectomy History of hysterectomy (~2006) secondary to uterine cancer History of appendectomy Family History Mother Dementia Asthma Brother Cardiovascular disease Myocardial infarction Asthma Family history of diabetes mellitus Sister Ovarian cancer Colonic polyp Asthma Family history of diabetes mellitus Cancer Father Dementia Sister Family history of diabetes mellitus Denies family history of Prostate cancer Breast cancer Colorectal cancer Social History Smoking Status: Never smoker Second Hand Exposure: No; Do You Dip or Chew Tobacco: No; Hx Alcohol Use: No Hx Substance Use: No Preferred Language: Tajik Communication Ability: Effective Visual Impairment: Partially Limited Hearing Ability: Normal 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 Required: No Beliefs That Will Affect Care: None marital status: Current Living Situation: Spouse Current Living Situation Comment: current occupational status: retired 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 Physical Exam Physical Exam: The patient is does awaken to my voice, but is lethargic and minimally responsive. Well developed and well nourished, normocephalic and atraumatic, lying in bed and in no acute distress other than when she has a harsh productive cough. HEENT--PERRL, EOMI, mucous membranes and oropharynx dry. Neck--supple. No JVD. No bruits. Thyroid normal, trachea midline, no adenopathy. Heart--normal S1 and S2. No murmurs, rubs or gallops. Lungs--coarse breath sounds bilaterally. No respiratory distress, no accessory muscle use. Abdomen--normal bowel sounds and soft. Nontender. Nondistended, no hernias or masses, no organomegaly. Extremities--no cyanosis or clubbing. No edema. Dermatologic--normal skin turgor, normal color, no abnormal lymph nodes, no rash. Neurologic--cranial nerves II through XII grossly intact. Moves all extremities equally Rheumatologic--limited exam Psychiatric--lethargic Results & Data Results & Data Vital Signs (Past 12 Hours) Vital Signs Pulse Resp BP Pulse Ox O2 Del Method 08/27/25 05:00 70 18 117/77 93 Room Air 08/27/25 04:00 65 18 114/73 97 Room Air 08/27/25 03:28 67 16 95 Room Air 08/27/25 03:03 101/53 L 08/27/25 02:59 63 Laboratory Results Laboratory Results WBC 5.50 K/ul (4.8-10.8) 08/27/25 03:01 RBC 4.32 M/uL (4.20-5.40) 08/27/25 03:01 Hgb 13.6 g/dL (12.0-16.0) 08/27/25 03:01 Hct 40.2 % (37.0-47.0) 08/27/25 03:01 MCV 93.1 fL (80.0-100.0) 08/27/25 03:01 MCH 31.5 pg (25.0-34.0) 08/27/25 03:01 MCHC 33.8 g/dL (32.0-36.0) 08/27/25 03:01 RDW Std Deviation 44.7 fL (36.4-46.3) 08/27/25 03:01 RDW Coeff of Ruben 13.0 % (11.5-14.5) 08/27/25 03:01 Plt Count 158 K/uL (130-400) 08/27/25 03:01 MPV 11.9 fL (9.4-12.4) 08/27/25 03:01 Immature Gran % (Auto) 0.2 % 08/27/25 03:01 Neut % (Auto) 45.4 % 08/27/25 03:01 Lymph % (Auto) 31.6 % 08/27/25 03:01 [place] % (Auto) 18.9 % 08/27/25 03:01 Eos % (Auto) 3.5 % 08/27/25 03:01 Baso % (Auto) 0.4 % 08/27/25 03:01 Neut # (Auto) 2.50 K/uL (1.40-6.50) 08/27/25 03:01 Lymph # (Auto) 1.74 K/uL (1.20-3.40) 08/27/25 03:01 [place] # (Auto) 1.04 K/uL (0.11-0.59) H 08/27/25 03:01 Eos # (Auto) 0.19 K/uL (0.00-0.50) 08/27/25 03:01 Baso # (Auto) 0.02 K/uL (0.00-0.20) 08/27/25 03:01 Immature Gran # (Auto) 0.01 K/uL (0.01-0.20) 08/27/25 03:01 Sodium 139 mmol/L (136-145) 08/27/25 03:01 Potassium 3.7 mmol/L (3.5-5.1) 08/27/25 03:01 Chloride 103 mmol/L (98-107) 08/27/25 03:01 Carbon Dioxide 24 mmol/L (21-32) 08/27/25 03:01 Anion Gap 12 (3-11) H 08/27/25 03:01 BUN 35 mg/dl (6-23) H 08/27/25 03:01 Creatinine 1.51 mg/dl (0.6-1.2) H 08/27/25 03:01 Est Cr Clr Drug Dosing 34.5 ml/min 08/27/25 03:01 eGFR 34.73 08/27/25 03:01 BUN/Creatinine Ratio 23.2 (10-20) H 08/27/25 03:01 Glucose 116 mg/dl (70-99(Fasting)) H 08/27/25 03:01 Calcium 8.5 mg/dl (8.6-10.3) L 08/27/25 03:01 Magnesium 2.1 mg/dl (1.7-2.4) 08/27/25 03:01 Total Bilirubin 0.6 mg/dl (0.2-1.0) 08/27/25 03:01 AST 40 U/L (13-39) H 08/27/25 03:01 ALT 40 U/L (7-52) 08/27/25 03:01 Alkaline Phosphatase 51 U/L (34-104) 08/27/25 03:01 Troponin I High Sens 4.1 pg/ml (0-14) 08/27/25 03:01 Total Protein 6.7 gm/dl (6.0-8.3) 08/27/25 03:01 Albumin 3.8 gm/dl (3.4-5.0) 08/27/25 03:01 Globulin 2.9 gm/dl (2.5-4.0) 08/27/25 03:01 Albumin/Globulin Ratio 1.3 (0.9-2) 08/27/25 03:01 TSH 3.592 uIu/ml (0.300-4.500) 08/27/25 03:01 SARS-CoV-2 (PCR) NEGATIVE (Negative) 08/27/25 03:20 Influenza Type A (PCR) Positive (Neg) A 08/27/25 03:20 Influenza Type B (PCR) Negative (Neg) 08/27/25 03:20 RSV (RT-PCR) Negative (Neg) 08/27/25 03:20 Impressions Chest X-Ray 08/27/25 03:44 EXAM: XR chest 1V portable CLINICAL HISTORY: syncope, flu like TECHNIQUE: An X-ray image of the chest is obtained in AP projection. 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 FINDINGS: Ill-defined ground-glass opacity noted in right lower zone - likely pneumonitis. The lungs are clear and well-expanded with no pulmonary infiltrate or pleural effusion. The cardiomediastinal silhouette is within normal limits. No acute osseous abnormality. IMPRESSION: Ill-defined ground-glass opacity noted in right lower zone - likely pneumonitis.-stable. Right pleural effusion is resolved. Electronically signed by Gama Hart 08-27-2025 05:42 AM Code Status & VTE Plan Code Status Full code VTE Prophylaxis Plan VTE Prophylaxis will be ordered: Yes PG Care Time/CCT Total # of Minutes Spent Total Time Spent with Patient: Total time spent is greater than 50% in coordination of care (as documented) at patient's floor/unit and/or counseling patient: Coding Level of Care Code 14834 INT INP/OBS CARE 3/75MIN Diagnoses Influenza A J10.1 Right lower lobe pneumonia J18.9 Acute respiratory failure with hypoxia J96.01 Acute kidney injury N17.9
[2025-08-27] MEDS: SODIUM CHLORIDE 0.9% 1,000 ML IV SCH (06:17)
[2025-08-27] MEDS: PANTOprazole 40 MG/10 ML SYR IV ONE (06:18)
[2025-08-27] MEDS: cefTRIAXone SODIUM 2,000 MG/50 ML BAG IV ONE (06:19)
[2025-08-27] MEDS: AZITHROMYCIN 500 MG/255 ML BAG IV ONE (06:38)
[2025-08-27] MEDS: ALBUT/IPRATROP 3MG/0.5MG NEB 3 ML VIAL NEB SCH (06:55)
[2025-08-27] MEDS: OSELTAMIVIR PHOSPHATE 75 MG CAP PO ONE (08:24)
[2025-08-27] MEDS: LACTATED RINGER'S 1,000 ML IV SCH (08:24)
[2025-08-27] MEDS: HEPARIN SOD 5,000 UNIT/0.5 ML VIAL SQ SCH (08:24)
[2025-08-27] MEDS: ACETAMINOPHEN 500 MG TAB PO SCH (09:37)
--- NOTE | 2025-08-27 10:56 | Electrocardiogram Report ---
Test Reason : Blood Pressure : */* mmHG Vent. Rate : 61 BPM Atrial Rate : 61 BPM P-R Int : 162 ms QRS Dur : 88 ms QT Int : 446 ms P-R-T Axes : 3 -15 54 degrees QTcB Int : 448 ms Normal sinus rhythm Normal ECG When compared with ECG of 12-Dec-2021 03:13, No significant change was found Confirmed by Aldo Mendez ([id number]) on 08/27/2025 10:56:21 AM Referred By: REFERRED SELF Confirmed By: Aldo Mendez
--- NOTE | 2025-08-27 14:41 | Hospitalist Progress Note ---
Date of Service August 27, 2025 Assessment & Plan (1) Acute kidney injury: (2) Influenza A with respiratory manifestations: (3) Aspiration pneumonitis due to regurgitated gastric secretions: (4) Hypoxia: Plan In summary this is an 80-year-old female who presents after an episode of transient syncope with rapid recovery of consciousness in the setting of influenza A pneumonitis with superimposed aspiration pneumonitis The patient presents with minimal respiratory complaints, though requiring a small amount of oxygen supplementation to maintain O2 saturation greater than 90%; reviewed the patient's laboratory assessment, imaging, physical exam, and overall presentation this is not consistent with a bacterial pneumonia nor acute respiratory failure with hypoxia; rather this is more consistent with a viral pneumonitis, with a superimposed aspiration pneumonitis resulting in a increased oxygen requirement Continue oseltamavir given the patient's positive influenza A PCR and need for oxygen supplementation although their symptoms began greater than 48 hours prior to presentation Continue oxygen supplementation to maintain O2 saturation greater than 90%; most likely multifactorial with the above findings in addition to obesity hypoventilation syndrome with or without obstructive sleep apnea Discontinue antibiotics, given the lack of evidence for bacterial process Discontinue steroids, given the lack of evidence of reactive airway disease requiring systemic steroids Continue to monitor clinically Baseline creatinine is typically less than or equal to 1.0; presenting function with greater than 30% rise, consistent with an acute injury; currently oliguric without recent persistent hypotensive. Though presenting with syncopal event and diminished oral intake in the setting of their ongoing influenza; no significant electrolyte abnormalities - Nurse to notify attending of urine output below goal of 0.5 mL per kilogram per hour - Intake and output measures every shift - Follow daily renal function panel Patient is endorsing symptoms of a muscle tension headache related to their influenza pneumonitis and general illness; continue with acetaminophen 1000 mg p.o. every 8 hours, if renal function improves add Toradol 30 mg IV every 6 hours scheduled for no longer than 5 days or to be discontinued upon discharge, whichever occurs first The remainder the patient's chronic medical conditions are stable and do not require adjustment to their outpatient regimen at this time DVT ppx: Start heparin 5000 units SQ twice daily GI PPx: No indication at this time Admission and Anticipated Discharge Date Admission Date: August 27, 2025 Subjective Ms. Modi is an 80-year-old female whose active medical conditions include essential hypertension, acquired hypothyroidism, type 2 diabetes mellitus with hyperglycemia, hyperlipidemia, unspecified chronic obstructive pulmonary disease among other chronic medical conditions who presented to the [facility] on 08/26 in the late evening due to a syncopal episode. She was subsequently admitted for hypoxia related to influenza A pneumonitis and possibly superimposed aspiration pneumonitis. New acute overnight events; the patient primarily feels fatigued today as their primary complaint. They endorse progressive fatigue that began on 08/22 and has steadily worsened. They do recall the circumstances surrounding of their episode of syncope on the night prior; they describe they were going to the bathroom, attempted to get off the toilet, shortly thereafter began to feel lightheaded and lowered himself to the ground without losing consciousness, subsequently awoke still laying on the floor. They deny any loss of bowel or bladder continence related to this episode. They were oriented to himself, place, time, and circumstance when EMS arrived for continued care. Review of Systems Review of Systems: Review of constitutional, cardiovascular, pulmonary, gastrointestinal, genitourinary, musculoskeletal systems was unremarkable except for pertinent positive and negative findings discussed above Physical Exam Physical Exam: General: Adult female in no acute distress Vital Signs: Reviewed; requiring 2 L by nasal cannula to maintain O2 saturation greater than 92% HEENT: Dry mucous membranes; pupils equally round and reactive to light, extraocular motion intact; no tenderness to palpation of the frontal or maxillary sinuses Pulmonary: Symmetric chest wall excursion without restriction; diminished air movement in the posterior bibasilar segments, without associated adventitious lung sounds Cardiovascular: Regular rate and rhythm without murmur, rub, or gallop; S1 and S2 normal; right radial pulse 2+, no notable lower extremity edema Gastrointestinal: Soft, nondistended; normal bowel sounds throughout both with frequency and pitch Neurologic: Cranial nerves II through XII grossly intact; no discernible focal weakness nor paresthesias Results & Data Results & Data Vital Signs (Past 12 Hours) Vital Signs Temp Pulse Pulse Resp BP BP Pulse Ox 08/27/25 14:00 83 21 115/69 94 08/27/25 11:38 08/27/25 10:13 66 16 96 08/27/25 09:44 37.7 C H 68 22 124/56 L 93 08/27/25 07:42 08/27/25 07:00 63 18 93/56 L 98 08/27/25 06:56 58 L 14 96 08/27/25 06:37 66 08/27/25 06:33 64 17 96 08/27/25 06:27 70 22 107/54 L 95 08/27/25 06:12 67 18 104/59 L 96 08/27/25 05:15 88 L 08/27/25 05:00 70 18 117/77 93 08/27/25 04:00 65 18 114/73 97 08/27/25 03:28 67 16 95 08/27/25 03:03 101/53 L 08/27/25 02:59 63 Pulse Ox O2 Del Method O2 Del Method O2 Flow Rate O2 Flow Rate 08/27/25 14:00 Nasal Cannula 2 08/27/25 11:38 Nasal Cannula 2 08/27/25 10:13 Nasal Cannula 1 08/27/25 09:44 Nasal Cannula 2 08/27/25 07:42 93 Nasal Cannula 2 08/27/25 07:00 Room Air 08/27/25 06:56 Nasal Cannula 2 08/27/25 06:37 08/27/25 06:33 08/27/25 06:27 Nasal Cannula 2 08/27/25 06:12 Nasal Cannula 2 08/27/25 05:15 Room Air, Nasal Cannula 0 08/27/25 05:00 Room Air 08/27/25 04:00 Room Air 08/27/25 03:28 Room Air 08/27/25 03:03 08/27/25 02:59 PG Care Time/CCT Total # of Minutes Spent Total Time Spent with Patient: Total time spent is greater than 50% in coordination of care (as documented) at patient's floor/unit and/or counseling patient: Coding Level of Care Code 32380 SUB INP/OBS CARE 2/35MIN Diagnoses Acute kidney injury N17.9 Influenza A with respiratory manifestations J10.1 Aspiration pneumonitis due to regurgitated gastric secretions J69.0 Hypoxia R09.02
[2025-08-27] MEDS: ATORVASTATIN 40 MG TAB PO SCH (16:02)
[2025-08-27] MEDS: MONTELUKAST SODIUM 10 MG TABLET PO SCH (20:54)
[2025-08-27] MEDS: OSELTAMIVIR PHOSPHATE 30 MG CAP PO SCH (20:54)
[2025-08-28] MEDS: LEVOTHYROXINE SODIUM 112 MCG TABLET PO SCH (05:31)
[2025-08-28 05:51] LABS: Appearance Urine Cloudy (Clear); Bacteria Urine Automated None Seen (None Seen); Glucose Urine UA Negative (Negative)
[2025-08-28] MEDS ORDERED: cefTRIAXone SODIUM 2,000 MG/50 ML BAG IV SCH (06:00)
[2025-08-28] MEDS ORDERED: AZITHROMYCIN 500 MG/255 ML BAG IV SCH (06:00)
[2025-08-28 06:27] LABS: Hematocrit (blood only) 36.3 % (37.0-47.0); Hemoglobin 12.5 g/dL (12.0-16.0); Immature Granulocytes # (auto) 0.01 K/uL (0.01-0.20); Immature Granulocytes % (auto) 0.2 %; Mean Corpuscular Hemoglobin 32.1 pg (25.0-34.0); Mean Corpuscular Volume 93.1 fL (80.0-100.0); Platelet Count 138 K/uL (130-400); RDW Standard Deviation 45.1 fL (36.4-46.3); Red Blood Count 3.90 M/uL (4.20-5.40); White Blood Count 4.11 K/ul (4.8-10.8)
[2025-08-28 06:58] LABS: Alanine Aminotransferase 31.0 U/L (7-52); Albumin Globulin Ratio 1.4 (0.9-2); Albumin Level 3.6 gm/dl (3.4-5.0); Alkaline Phosphatase 44.0 U/L (34-104); Anion Gap 9.0 (3-11); Bilirubin,Total 0.4 mg/dl (0.2-1.0); Blood Urea Nitrogen 42.0 mg/dl (6-23); Calcium 8.4 mg/dl (8.6-10.3); Carbon Dioxide 24.0 mmol/L (21-32); Chloride 104.0 mmol/L (98-107); Creatinine Clr Calc Pharmacy 36.7 ml/min; Globulin 2.5 gm/dl (2.5-4.0); Glucose 139.0 mg/dl (70-99(Fasting)); Magnesium 2.1 mg/dl (1.7-2.4); Potassium 3.7 mmol/L (3.5-5.1); Sodium 137.0 mmol/L (136-145); Total Protein 6.1 gm/dl (6.0-8.3)
--- NOTE | 2025-08-28 07:28 | Hospitalist Progress Note ---
Date of Service August 28, 2025 Assessment & Plan (1) Acute kidney injury: (2) Influenza A with respiratory manifestations: (3) Aspiration pneumonitis due to regurgitated gastric secretions: (4) Hypoxia: Plan In summary this is an 80-year-old female who presents after an episode of transient syncope with rapid recovery of consciousness in the setting of influenza A pneumonitis with superimposed aspiration pneumonitis The patient presented with minimal respiratory complaints, though requiring a small amount of oxygen supplementation to maintain O2 saturation greater than 90%; in review of the patient's presenting laboratory assessment and imaging in addition to initial physical exam, their overall presentation was not consistent with a bacterial pneumonia nor acute respiratory failure with hypoxia; rather this is more consistent with a viral pneumonitis, with a superimposed aspiration pneumonitis resulting in a increased oxygen requirement; with continued management of the latter, they have steadily improved Continue oseltamavir given the patient's positive influenza A PCR and need for oxygen supplementation although their symptoms began greater than 48 hours prior to presentation Continue oxygen supplementation to maintain O2 saturation greater than 90%; most likely multifactorial with the above findings in addition to obesity hypoventilation syndrome with or without obstructive sleep apnea Discontinue antibiotics, given the lack of evidence for bacterial process Discontinue steroids, given the lack of evidence of reactive airway disease requiring systemic steroids Continue to monitor clinically Baseline creatinine is typically less than or equal to 1.0; presenting function with greater than 30% rise, consistent with an acute injury; currently oliguric without recent hypotensive period in the setting of a syncopal event and diminished oral intake in the setting of their ongoing influenza; no significant electrolyte abnormalities - Nurse to notify attending of urine output below goal of 0.5 mL per kilogram per hour - Intake and output measures every shift - Follow daily renal function panel Patient is endorsing symptoms of a muscle tension headache related to their influenza pneumonitis and general illness; continue with acetaminophen 1000 mg p.o. every 8 hours, if renal function improves add Toradol 30 mg IV every 6 hours scheduled for no longer than 5 days or to be discontinued upon discharge, whichever occurs first The remainder the patient's chronic medical conditions are stable and do not require adjustment to their outpatient regimen at this time DVT ppx: Continue heparin 5000 units SQ twice daily GI PPx: No indication at this time Admission and Anticipated Discharge Date Admission Date: August 27, 2025 Lori oMdi is an 80-year-old female whose active medical conditions include essential hypertension, acquired hypothyroidism, type 2 diabetes mellitus with hyperglycemia, hyperlipidemia, unspecified chronic obstructive pulmonary disease among other chronic medical conditions who presented to the [facility] on 08/26 in the late evening due to a syncopal episode. She was subsequently admitted for hypoxia related to influenza A pneumonitis and possibly superimposed aspiration pneumonitis. No acute overnight events; became short of breath with transitioning from bed to commode, but without significant desaturation Review of Systems Review of Systems: Review of constitutional, cardiovascular, pulmonary, gastrointestinal, genitourinary, musculoskeletal systems was unremarkable except for pertinent positive and negative findings discussed above Physical Exam Physical Exam: General: Adult female in no acute distress Vital Signs: Reviewed; requiring 1 L by nasal cannula to maintain O2 saturation greater than 92% HEENT: Moist mucous membranes Pulmonary: Symmetric chest wall excursion without restriction; diminished air movement in the posterior bibasilar segments, soft crackles in the posterior basilar segments without rhonchi or wheezing Cardiovascular: Regular rate and rhythm without murmur, rub, or gallop; S1 and S2 normal; right radial pulse 2+, no notable lower extremity edema Gastrointestinal: Soft, nondistended; normal bowel sounds throughout both with frequency and pitch Neurologic: Cranial nerves II through XII grossly intact; no discernible focal weakness nor paresthesias Results & Data Results & Data Vital Signs (Past 12 Hours) Vital Signs Temp Pulse Pulse Resp BP BP Pulse Ox 08/28/25 03:30 36.6 C 54 L 18 122/73 97 08/27/25 22:55 36.4 C L 58 L 18 120/76 91 08/27/25 21:31 62 08/27/25 20:00 08/27/25 19:42 37.0 C 64 18 130/69 92 O2 Del Method O2 Flow Rate 08/28/25 03:30 Nasal Cannula 1.0 08/27/25 22:55 Room Air 08/27/25 21:31 08/27/25 20:00 Nasal Cannula 1 08/27/25 19:42 Nasal Cannula 2 Laboratory Results Leukopenic 4.1 (5.5) Creatinine 1.42 (1.51) Urinalysis with trace protein, glucose and leukocyte esterase; microscopy revealed pyuria, hematuria, and hyaline casts with 6-10 epithelial cells Diagnostic Findings Chest film PA and Lateral with improvement of previously noted vascular congestion, cephalization, and reduced prominence of right perihilar fullness PG Care Time/CCT Total # of Minutes Spent Total Time Spent with Patient: Total time spent is greater than 50% in coordination of care (as documented) at patient's floor/unit and/or counseling patient: Coding Level of Care Code 18157 SUB INP/OBS CARE 2/35MIN Diagnoses Acute kidney injury N17.9 Influenza A with respiratory manifestations J10.1 Aspiration pneumonitis due to regurgitated gastric secretions J69.0 Hypoxia R09.02
[2025-08-28] MEDS: COUGH DROP (SUGAR FREE) LOZ 24 LOZ/1 BOX BUCCAL PRN (07:42)
--- NOTE | 2025-08-28 08:48 | XRay Report ---
EXAM: Radiographs of the Chest 2 Views INDICATION: Follow-up pulmonary findings. TECHNIQUE: Frontal and lateral views of the chest. COMPARISON: 08/27/2025 FINDINGS: Lungs and pleural spaces: Stable generalized prominence of the bronchovascular markings with improved mild patchy right perihilar infiltrate. No pleural effusion or pneumothorax. Heart: Normal shape and configuration. Mediastinum: Normal contour. Bones/joints: No fracture, erosion or dislocation. IMPRESSION: Stable generalized prominence of the bronchovascular markings with improved mild patchy right perihilar infiltrate. ACT 112: N/A Electronically signed by Yasmin Mcmahon 08-28-2025 08:48 AM
[2025-08-28] MEDS ORDERED: PANTOprazole 40 MG/10 ML SYR IV SCH (09:00)
[2025-08-28] MEDS: FEXOFENADINE HCL 180 MG TAB PO SCH (09:28)
[2025-08-28] MEDS: ASPIRIN 81 MG ECTAB PO SCH (09:28)
[2025-08-28] MEDS: LACTATED RINGER'S 1,000 ML IV SCH (14:32)
[2025-08-28] MEDS: KETOROLAC TROMETHAMINE 15 MG/ML VIAL IV SCH (14:35)
--- NOTE | 2025-08-29 18:03 | Hospitalist Progress Note ---
Date of Service August 29, 2025 Assessment & Plan (1) Acute kidney injury: (2) Influenza A with respiratory manifestations: (3) Aspiration pneumonitis due to regurgitated gastric secretions: (4) Hypoxia: Plan In summary this is an 80-year-old female who presents after an episode of transient syncope with rapid recovery of consciousness in the setting of influenza A pneumonitis with superimposed aspiration pneumonitis #Influenza A #Acute hypoxemic Respiratory Failure #CXR with aspiration pattern #Bacterial Superinfection #COPD Tamiflu Day 11/06 Continue oxygen supplementation to maintain O2 saturation greater than 90%; most likely multifactorial with the above findings in addition to obesity hypoventilation syndrome with or without obstructive sleep apnea Worsening obstructive pattern on examination, will restart solumedrol 40mg BID - If CRP and procal increaseing and pulmonary status declines, restart abx - NEMATOLOGIST evaluation, prior stroke, weakness as discussed below, VSS when available or as outpatient. #Weakness -Somewhat out of proportion to timing and severity of illness, quite signficant per patient -Add CRP, ESR and Procal, theoretical risk of GBS given influenza A - Monitor labs, PT and OT consult with NEMATOLOGIST as above #WILLIAM -Baseline creatinine is typically less than or equal to 1.0; presenting function with greater than 30% rise, consistent with an acute injury; currently oliguric without recent hypotensive period in the setting of a syncopal event and diminished oral intake in the setting of their ongoing influenza; no significant electrolyte abnormalities - Nurse to notify attending of urine output below goal of 0.5 mL per kilogram per hour - Intake and output measures every shift - INterval worsening, DC toradol, UA with trace ketones and protein, good oral intake, fluid bolus PRN #DM2 -within goal range, monitro with re-addition of steroids #HIGGINBOTHAM - C/w muscle tension headache related to their influenza pneumonitis and general illness - acetaminophen 1000 mg p.o. every 8 hours, DVT ppx: Continue heparin 5000 units SQ twice daily GI PPx: No indication at this time Admission and Anticipated Discharge Date Admission Date: August 27, 2025 Subjective Doing okay today. Still reporting quite significant shortness of breath. Wheezing. Noting some mild improvement but only minimal. She reports quite significant weakness. Somewhat out of proportion to expected just from her cur rent illness. Otherwise no immediate concerns with oral intake. No problems with bowel or bladder function. She has not met with PT and OT. We briefly discussed her previous stroke she states that she was told previously it was silent had no impact on her underlying function. We briefly discussed the concern on her initial x-ray for aspiration. She states she has no history of such. Has never had speech issues. I reviewed speech therapy evaluation and given her recent weakness the value in having a swallow evaluation. She is understanding. Not ambulatory as of yet. Only minimal recovery and functional status thus far Physical Exam Physical Exam: General: Adult female in no acute distress, sitting in bedside chair Vital Signs: Reviewed; requiring room air to 1 L by nasal cannula to maintain O2 saturation greater than 92% HEENT: Moist mucous membranes Pulmonary: Significantly diminished air movement throughout with expiratory phase wheezing and diffuse rhonchi on posterior and anterior examination. Cardiovascular: Regular rate and rhythm without murmur, rub, or gallop; S1 and S2 normal; right radial pulse 2+, no notable lower extremity edema Gastrointestinal: Soft, nondistended; normal bowel sounds throughout both with frequency and pitch Neurologic: Cranial nerves II through XII grossly intact; no discernible focal weakness nor paresthesias, no pronator drift, clinically subjective decrease in features editor strength bilaterally. Able to resist gravity easily. Able to lift arms. Follow commands. Results & Data Results & Data Vital Signs (Past 12 Hours) Vital Signs Temp Pulse Pulse Resp BP Pulse Ox O2 Del Method 08/29/25 15:50 36.9 C 78 18 123/64 92 Room Air 08/29/25 14:43 82 18 96 Room Air 08/29/25 10:56 64 18 96 Room Air 08/29/25 10:07 Room Air 08/29/25 07:30 60 16 92 Room Air 08/29/25 07:16 36.5 C 56 L 20 132/73 92 Room Air Laboratory Results 08/27/25 16:01 Gram Stain - Final Sputum, Expectorated Sputum Culture - Final Moderate normal catherine. PG Care Time/CCT Total # of Minutes Spent Total Time Spent with Patient: Total time spent is greater than 50% in coordination of care (as documented) at patient's floor/unit and/or counseling patient: Coding Level of Care Code 75982 SUB INP/OBS CARE 2/35MIN Diagnoses Acute kidney injury N17.9 Influenza A with respiratory manifestations J10.1 Aspiration pneumonitis due to regurgitated gastric secretions J69.0 Hypoxia R09.02
[2025-08-30 06:20] LABS: Hematocrit (blood only) 37.1 % (37.0-47.0); Hemoglobin 12.4 g/dL (12.0-16.0); Immature Granulocytes # (auto) 0.02 K/uL (0.01-0.20); Immature Granulocytes % (auto) 0.6 %; Mean Corpuscular Hemoglobin 30.8 pg (25.0-34.0); Mean Corpuscular Volume 92.3 fL (80.0-100.0); Platelet Count 137 K/uL (130-400); RDW Standard Deviation 44.9 fL (36.4-46.3); Red Blood Count 4.02 M/uL (4.20-5.40); White Blood Count 3.12 K/ul (4.8-10.8)
[2025-08-30 07:42] LABS: Alanine Aminotransferase 23 U/L (7-52); Albumin Globulin Ratio 1.3 (0.9-2); Albumin Level 3.5 gm/dl (3.4-5.0); Alkaline Phosphatase 44 U/L (34-104); Anion Gap 7 (3-11); Bilirubin,Total 0.5 mg/dl (0.2-1.0); Blood Urea Nitrogen 35 mg/dl (6-23); Calcium 8.4 mg/dl (8.6-10.3); Carbon Dioxide 23 mmol/L (21-32); Chloride 108 mmol/L (98-107); Creatinine Clr Calc Pharmacy 45.9 ml/min; Globulin 2.6 gm/dl (2.5-4.0); Glucose 161 mg/dl (70-99(Fasting)); Magnesium 1.8 mg/dl (1.7-2.4); Potassium 4.6 mmol/L (3.5-5.1); Sodium 138 mmol/L (136-145); Total Protein 6.1 gm/dl (6.0-8.3)
[2025-08-30] MEDS ORDERED: ACETAMINOPHEN 500 MG TAB PO PRN (11:49)
--- NOTE | 2025-08-30 15:22 | Hospitalist Progress Note ---
Date of Service August 30, 2025 Assessment & Plan (1) Acute kidney injury: (2) Influenza A with respiratory manifestations: (3) Aspiration pneumonitis due to regurgitated gastric secretions: (4) Hypoxia: Plan In summary this is an 80-year-old female who presents after an episode of transient syncope with rapid recovery of consciousness in the setting of influenza A pneumonitis with superimposed aspiration pneumonitis #Influenza A #Acute hypoxemic Respiratory Failure #CXR with aspiration pattern #Bacterial Superinfection #COPD Tamiflu Day / Continue oxygen supplementation to maintain O2 saturation greater than 90%; most likely multifactorial with the above findings in addition to obesity hypoventilation syndrome with or without obstructive sleep apnea Worsening obstructive pattern on examination, will restart solumedrol 40mg BID - Continue as above, repeat chest x-ray. Very slow recovery course secondary to reactive airway dysfunction. - Again continue to monitor trend. Low threshold to start Augmentin. - WHIPPER evaluation, prior stroke, weakness as discussed below, VSS when available or as outpatient. #Weakness -Somewhat out of proportion to timing and severity of illness, quite signficant per patient -Add CRP, ESR and Procal, theoretical risk of GBS given influenza A - Monitor labs, PT and OT consult with WHIPPER as above - Strength seems to be improving most of her hospitalization ongoing debility is related to her pulmonary status. #WILLIAM -Baseline creatinine is typically less than or equal to 1.0; presenting function with greater than 30% rise, consistent with an acute injury; currently oliguric without recent hypotensive period in the setting of a syncopal event and diminished oral intake in the setting of their ongoing influenza; no significant electrolyte abnormalities - Nurse to notify attending of urine output below goal of 0.5 mL per kilogram per hour - Intake and output measures every shift - Returning to baseline after volume expansion, discontinuation of Toradol. #DM2 -within goal range, monitro with re-addition of steroids #HIGGINBOTHAM - C/w muscle tension headache related to their influenza pneumonitis and general illness - acetaminophen 1000 mg p.o. every 8 hours, DVT ppx: Continue heparin 5000 units SQ twice daily GI PPx: No indication at this time Admission and Anticipated Discharge Date Admission Date: August 27, 2025 Subjective really no significant improvement over the last 24 hours per patient. She is continue with the inhalers on nearly a regular schedule at least 4 times while she is awake. Denies any fevers chills or other generalized signs of illness. Only very limited amounts of being out of bed. Still very tight and wheezy. Cough is very thick and minimally productive. Otherwise able to sleep okay. No difficulty with eating or swallowing per patient. Physical Exam Physical Exam: General: Adult female in no acute distress, sitting in bedside chair Vital Signs: Reviewed; requiring room air to 1 L by nasal cannula to maintain O2 saturation greater than 92% HEENT: Moist mucous membranes Pulmonary: Significantly diminished air movement throughout with expiratory phase wheezing and diffuse rhonchi on posterior and anterior examination. 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 Able to resist gravity easily. Able to lift arms. Follow commands. Results & Data Results & Data Vital Signs (Past 12 Hours) Vital Signs Temp Pulse Resp BP Pulse Ox O2 Del Method 08/30/25 15:01 67 16 95 Room Air 08/30/25 11:49 36.6 C 81 20 144/61 H 94 Room Air 08/30/25 10:46 63 16 94 Room Air 08/30/25 08:00 Room Air 08/30/25 07:35 59 L 16 96 Room Air 08/30/25 07:10 36.8 C 63 18 167/83 H 96 Room Air Laboratory Results 08/30/25 05:41 WBC 3.12 L RBC 4.02 L Hgb 12.4 Hct 37.1 MCV 92.3 MCH 30.8 MCHC 33.4 RDW Std Deviation 44.9 RDW Coeff of Ruben 13.1 Plt Count 137 MPV 12.2 Immature Gran % (Auto) 0.6 Neut % (Auto) 73.8 Lymph % (Auto) 22.8 Emanuel % (Auto) 2.2 Eos % (Auto) 0.3 Baso % (Auto) 0.3 Neut # (Auto) 2.30 Lymph # (Auto) 0.71 L Emanuel # (Auto) 0.07 L Eos # (Auto) 0.01 Baso # (Auto) 0.01 Immature Gran # (Auto) 0.02 ESR 23 Sodium 138 Potassium 4.6 Chloride 108 H Carbon Dioxide 23 Anion Gap 7 BUN 35 H Creatinine 1.14 Est Cr Clr Drug Dosing 45.9 eGFR 48.67 BUN/Creatinine Ratio 30.7 H Glucose 161 H Calcium 8.4 L Magnesium 1.8 Total Bilirubin 0.5 AST 18 ALT 23 Alkaline Phosphatase 44 C-Reactive Protein < 0.50 Total Protein 6.1 Albumin 3.5 Globulin 2.6 Albumin/Globulin Ratio 1.3 Procalcitonin 0.03 PG Care Time/CCT Total # of Minutes Spent Total Time Spent with Patient: Total time spent is greater than 50% in coordination of care (as documented) at patient's floor/unit and/or counseling patient: Coding Level of Care Code 77698 SUB INP/OBS CARE 2/35MIN Diagnoses Acute kidney injury N17.9 Influenza A with respiratory manifestations J10.1 Aspiration pneumonitis due to regurgitated gastric secretions J69.0 Hypoxia R09.02
--- NOTE | 2025-08-30 17:25 | XRay Report ---
HISTORY: Influenza TECHNIQUE: Portable AP radiograph of the chest. COMPARISON: Chest radiographs dated 08/28/2025. FINDINGS: Previously demonstrated right perihilar opacity has resolved. No new focal consolidation. No pneumothorax or effusion. Mild cardiomegaly. Left-sided aortic arch. Midline trachea. No acute osseous abnormality. Included upper abdomen is unremarkable. IMPRESSION: * No acute cardiopulmonary findings. * Previously demonstrated right perihilar focal opacity has resolved. Electronically signed by Pierre White 08-30-2025 5:24 PM
[2025-08-31 06:32] LABS: Hematocrit (blood only) 36.3 % (37.0-47.0); Hemoglobin 12.1 g/dL (12.0-16.0); Immature Granulocytes # (auto) 0.04 K/uL (0.01-0.20); Immature Granulocytes % (auto) 0.6 %; Mean Corpuscular Hemoglobin 30.9 pg (25.0-34.0); Mean Corpuscular Volume 92.8 fL (80.0-100.0); Platelet Count 136 K/uL (130-400); RDW Standard Deviation 45.2 fL (36.4-46.3); Red Blood Count 3.91 M/uL (4.20-5.40); White Blood Count 6.33 K/ul (4.8-10.8)
[2025-08-31 07:10] LABS: Alanine Aminotransferase 35 U/L (7-52); Albumin Globulin Ratio 1.4 (0.9-2); Albumin Level 3.5 gm/dl (3.4-5.0); Alkaline Phosphatase 43 U/L (34-104); Anion Gap 8 (3-11); Bilirubin,Total 0.5 mg/dl (0.2-1.0); Blood Urea Nitrogen 34 mg/dl (6-23); Calcium 8.7 mg/dl (8.6-10.3); Carbon Dioxide 23 mmol/L (21-32); Chloride 107 mmol/L (98-107); Creatinine Clr Calc Pharmacy 53.4 ml/min; Globulin 2.5 gm/dl (2.5-4.0); Glucose 162 mg/dl (70-99(Fasting)); Magnesium 1.8 mg/dl (1.7-2.4); Potassium 4.5 mmol/L (3.5-5.1); Sodium 138 mmol/L (136-145); Total Protein 6.0 gm/dl (6.0-8.3)
--- NOTE | 2025-08-31 18:20 | Hospitalist Progress Note ---
Date of Service August 31, 2025 Assessment & Plan (1) Acute kidney injury: (2) Influenza A with respiratory manifestations: (3) Aspiration pneumonitis due to regurgitated gastric secretions: (4) Hypoxia: Plan In summary this is an 80-year-old female who presents after an episode of transient syncope with rapid recovery of consciousness in the setting of influenza A pneumonitis with superimposed aspiration pneumonitis #Influenza A #Acute hypoxemic Respiratory Failure #CXR with aspiration pattern #Bacterial Superinfection #COPD Tamiflu Day 01/06 today Continue oxygen supplementation to maintain O2 saturation greater than 90%; most likely multifactorial with the above findings in addition to obesity hypoventilation syndrome with or without obstructive sleep apnea Worsening obstructive pattern on examination, will restart solumedrol 40mg BID - Significant improvement in air exchange overall on examination today, will trial ambulation through the day. Continue oxygen moderate through the night. Likely ready for discharge early tomorrow morning -Plan for DC with prednisone 20 mg twice daily for 3 days then 20 mg for 2 additional days, order placed to start tomorrow AM, snd withorder to start 10/04 - BUILDING AND CONSTRUCTION MANAGER evaluation, initially some concern for aspiration, her chest x-ray is clear. She is doing very well and with the improvement in her weakness her swallow seems to have normalized. Defer further evaluation in the outpatient setting. - #Weakness -Somewhat out of proportion to timing and severity of illness, quite signficant per patient -Add CRP, ESR and Procal, theoretical risk of GBS given influenza A - Monitor labs, PT and OT consult with BUILDING AND CONSTRUCTION MANAGER as above - After Tamiflu, supportive care is here her strength is back to its baseline. Some mild deconditioning to be expected. #WILLIAM -Baseline creatinine is typically less than or equal to 1.0; presenting function with greater than 30% rise, consistent with an acute injury; currently oliguric without recent hypotensive period in the setting of a syncopal event and diminished oral intake in the setting of their ongoing influenza; no significant electrolyte abnormalities - Nurse to notify attending of urine output below goal of 0.5 mL per kilogram per hour - Intake and output measures every shift - Avoid NSAIDs, GFR back to normal #DM2 -within goal range, monitro with re-addition of steroids #HIGGINBOTHAM - C/w muscle tension headache related to their influenza pneumonitis and general illness - acetaminophen 1000 mg p.o. every 8 hours, - resolved DVT ppx: Continue heparin 5000 units SQ twice daily GI PPx: No indication at this time Admission and Anticipated Discharge Date Admission Date: August 27, 2025 Subjective Doing better this morning. Per nursing and patient report her breathing is quite a bit better cough is improving but still persistent. She has yet being up and active with very much as she is in isolation. Otherwise no fevers chills nausea vomiting. Able to sleep okay. No problems with bowel or bladder function. No new complaints or concerns per patient or nursing staff discussed the possibility of discharge later in the day. Patient [place] the hospital and unfortunately given the icy weather her is unable to come in to pick her up until early tomorrow morning. He also has lung problems and ongoing issues with influenza. Physical Exam Physical Exam: General: Adult female in no acute distress, sitting in bedside chair Vital Signs: Reviewed; requiring room air to 1 L by nasal cannula to maintain O2 saturation greater than 92% HEENT: Moist mucous membranes Pulmonary: Significantly improved air movement throughout with minimal expiratory phase wheezing. Good air exchange. No focal decreases Cardiovascular: Regular rate and rhythm without murmur, rub, or gallop; S1 and S2 normal; right radial pulse 2+, no notable lower extremity edema Gastrointestinal: Soft, nondistended; normal bowel sounds throughout both with frequency and pitch Neurologic: Cranial nerves II through XII grossly intact; no discernible focal weakness nor paresthesias, no pronator drift, back to her baseline of strength Results & Data Results & Data Vital Signs (Past 12 Hours) Vital Signs Temp Pulse Resp BP Pulse Ox O2 Del Method 08/31/25 15:20 36.9 C 78 19 139/68 96 Room Air 08/31/25 14:41 78 16 95 Room Air 08/31/25 12:05 36.6 C 71 18 133/70 95 Room Air 08/31/25 11:01 68 16 97 Room Air 08/31/25 09:00 Room Air 08/31/25 08:00 36.4 C L 72 20 147/70 H 93 Room Air 08/31/25 07:01 63 16 93 Room Air Laboratory Results 08/31/25 06:03 WBC 6.33 RBC 3.91 L Hgb 12.1 Hct 36.3 L MCV 92.8 MCH 30.9 MCHC 33.3 RDW Std Deviation 45.2 RDW Coeff of Ruben 13.3 Plt Count 136 MPV 12.2 Immature Gran % (Auto) 0.6 Neut % (Auto) 82.0 Lymph % (Auto) 13.9 Green % (Auto) 3.5 Eos % (Auto) 0.0 Baso % (Auto) 0.0 Neut # (Auto) 5.19 Lymph # (Auto) 0.88 L Green # (Auto) 0.22 Eos # (Auto) 0.00 Baso # (Auto) 0.00 Immature Gran # (Auto) 0.04 Sodium 138 Potassium 4.5 Chloride 107 Carbon Dioxide 23 Anion Gap 8 BUN 34 H Creatinine 0.98 Est Cr Clr Drug Dosing 53.4 eGFR 58.35 BUN/Creatinine Ratio 34.7 H Glucose 162 H Calcium 8.7 Magnesium 1.8 Total Bilirubin 0.5 AST 31 ALT 35 Alkaline Phosphatase 43 C-Reactive Protein < 0.50 Total Protein 6.0 Albumin 3.5 Globulin 2.5 Albumin/Globulin Ratio 1.4 Procalcitonin 0.03 PG Care Time/CCT Total # of Minutes Spent Total Time Spent with Patient: Total time spent is greater than 50% in coordination of care (as documented) at patient's floor/unit and/or counseling patient: Coding Level of Care Code 07932 SUB INP/OBS CARE 2/35MIN Diagnoses Acute kidney injury N17.9 Influenza A with respiratory manifestations J10.1 Aspiration pneumonitis due to regurgitated gastric secretions J69.0 Hypoxia R09.02
[2025-08-31] MEDS: predniSONE 20 MG TAB PO SCH (22:03)
[2025-09-01 05:05] VITALS: TEMP 98.1
--- NOTE | 2025-09-01 10:19 | Discharge Summary ---
"Discharge Summary Date of Service September 01, 2025 Principal Dx & Hospital Course #1 = Principal Diagnosis (1) Influenza A with respiratory manifestations: (2) Aspiration pneumonitis due to regurgitated gastric secretions: (3) Acute kidney injury: (4) Hypoxia: Plan In summary this is an 80-year-old female who presents after an episode of transient syncope with rapid recovery of consciousness in the setting of influenza A pneumonitis with superimposed aspiration pneumonitis. Initially with hypoxia requiring supplemental O2, fortunately now has been weaned back to room air and remained stable. #Influenza A | Aspiration pneumonitis | COPD Completed 5 day course of Tamiflu Initial CXR on 08/27 noted likely pneumonitis in right lower zone. Repeat CXR on 08/30 noted previously demonstrated right perihilar focal opacity has resolved, no acute cardiopulmonary findings [employer] evaluation, initially some concern for aspiration, her chest x-ray is clear. No overt signs of aspiration per RN. She is doing very well and with the improvement in her weakness her swallow seems to have normalized. Defer further evaluation in the outpatient setting - could consider VFSS Weaned back to room air, remaining stable #Weakness - Somewhat out of proportion to timing and severity of illness, initially quite significant per patient. Now resolved with patient nearly back to baseline, some mild deconitioning to be expected - ESR, CRP, procal WNL #WILLIAM - Baseline creatinine is typically less than or equal to 1.0; presenting function with greater than 30% rise, consistent with an acute injury; currently oliguric without recent hypotensive period in the setting of a syncopal event and diminished oral intake in the setting of their ongoing influenza; no significant electrolyte abnormalities. - Renal function now returned to baseline; continue to monitor outpatient - Avoid NSAIDs, GFR back to normal #DM2 -within goal range #HIGGINBOTHAM - C/w muscle tension headache related to their influenza pneumonitis and general illness - acetaminophen 1000 mg p.o. every 8 hours, - resolved DVT ppx: heparin Dispo: Discharged home 09/01 Notes For Next Care Provider Consider VFSS to definitively rule out aspiration Consider repeating BMP to monitor kidney function Medication Changes From Visit none Admission HPI Per Admitting Provider The patient is an 80-year-old female with a past medical history including hypertension, diabetes mellitus type 2, hypothyroidism, history of CVA, hip degenerative arthritis, GERD, hyperlipidemia, osteopenia, COPD, and solitary. Pulmonary nodule her provides the HPI and review of systems, as the patient is very lethargic, fatigued, and unable to answer questions. He reports that 3 days ago she started to develop generalized fatigue, myalgias, shortness of breath, dyspnea on exertion, and productive cough, all of which were gradually worsening. Today, while she was in the bathroom, he heard her yell out for help, and found her unresponsive on the bathroom floor. He called EMS this evening, who who brought her into the emergency department. She reportedly was recently able to respond to EMS upon arrival. At this time in the emergency department, she is very fatigued, somewhat lethargic, and minimally able to respond to questioning. Workup in the emergency department included a normal CBC with differential. Creatinine was elevated 1.51 compared to baseline of 1.0 to. COVID testing and RSV testing were negative. Influenza A was positive and influenza B was negative. From the ED she received a DuoNeb treatment, and was referred to [facility] service for admission. Discharge Exam General: No acute distress, nondiaphoretic, well-developed, well-nourished. Skin: Warm, dry. No rashes or peripheral edema noted. Cardiac: Regular rate and rhythm without murmurs gallops or rubs. Pulm: Clear to auscultation bilaterally without wheezes, rales or rhonchi. Normal respiratory effort. 95% on room air. Abdominal: Soft, nontender, nondistended. Bowel sounds present. Neuro: A&O x3. No focal neurological deficits. Discharge Plan Discharge Items Patient Disposition: Home - Self-Care Reason For Visit: INFUENZA A, RLL BACTERIAL PNEUMONIA, HYPOXIA, SYNC Discharge Diagnosis: Influenza A, reactive airway dysfunction Condition on Discharge: Fair Activity: Resume your previous activity Non-emergency contact: Primary Care Provider Call non-emergency contact if: you have any medication questions, your symptoms worsen and you have a fever Follow-up/Referrals: Andrew Ramirez III, CRNP [Primary Care Provider] - 09/09/25 9:20 am (Follow-up in 1-2 weeks) Diet: Carb Consistent or DM2 and Heart Healthy Addtl Attending Provider Instructions: Cyn, They were admitted to the hospital after an episode of transient syncope (passing out) in the setting of influenza A and pneumonitis (inflammation of the lung tissue). You also had a mild WILLIAM (8 acute kidney injury) in the setting of dehydration and NSAIDs. After rehydration and holding your NSAID medications, your kidney function returned to normal. You are now stable on room air, symptoms are controlled, and are ready to be discharged home. Upon discharge from the hospital: * You can use daxj-sry-aitirrw supportive care measures including Tylenol as needed for body aches/fever, guaifenesin as needed for congestion/wet cough, and dextromethorphan for cough suppression/dry cough. * Recommend avoiding NSAID based medications such as Aleve or ibuprofen, as this appeared to have a negative effect on your kidneys while you are hospitalized. You can discuss further with your primary care about long-term use with these medications. * Consider having swallow study done with speech therapy to definitively rule out aspiration. You can discuss this further with your PCP at your hospital follow-up appointment. * Follow-up with your PCP in 1-2 weeks. Please return to the hospital if you experience any of the following: Persistent fever despite medication, worsening shortness of breath, difficulty breathing, chest pain, inability to tolerate oral intake, low or no urine output, passing out, new or worsening confusion, or any other symptoms concerning for you. It was a pleasure taking care of you while you were in the hospital, Linda Pickard PA-C Pending Studies at Discharge: No Stand-Alone Forms: [facility], Smoking Cessation Medications and DC Order Prescriptions: Continued hydrochlorothiazide 25 mg tablet 25 mg PO DAILY Qty: 90 3RF losartan 25 mg tablet 25 mg PO HS Qty: 90 3RF ipratropium bromide 42 mcg (0.06 %) spray,non-aerosol 2 spray INTNAS UD PRN (Reason: Nasal Congestion) Qty: 15 5RF biotin 10,000 mcg capsule 10,000 mcg PO DAILY Patient Comments: biotin + keratin ondansetron 8 mg tablet,disintegrating 8 mg PO Q8H PRN (Reason: nausea and vomiting) Qty: 20 0RF multivitamin [Daily Multi-Vitamin] Tablet 1 tab PO QAM Patient Comments: centrum silver women 50+ aspirin 81 mg Tablet,Delayed Release (Dr/Ec) 81 mg PO QAM Qty: 30 0RF fexofenadine 180 mg Tablet 180 mg PO QAM albuterol sulfate [Ventolin HFA] 90 mcg/actuation Hfa Aerosol Inhaler 1 inh INHALATION UD PRN (Reason: as directed) Patient Comments: no use for yrs umeclidinium-vilanterol [Anoro Ellipta] 62.5-25 mcg/actuation blister with device 1 inh inhalation UD PRN (Reason: as directed) Patient Comments: no use for yrs pantoprazole 40 mg tablet,delayed release (DR/EC) 40 mg PO DAILYBB montelukast 10 mg tablet 10 mg PO HS levothyroxine 112 mcg tablet 112 mcg PO DAILYBB atorvastatin 40 mg tablet 40 mg PO PM Rx Instructions: WITH EVENING MEAL Probiotic 20 billion cell Capsule 60,000 mmu cells PO DAILY Rx Instructions: administer with a meal Discharge Orders: Discharge Order (Routine); Ordered 09/01/25 Ordered By: Linda Pickard Admission Data Admit Date/Time: 08/27/25 05:59 Attending Provider: Petros De La Torre Admit Provider: Jamarcus Doran Primary Care Provider: Andrew Ramirez III Other Providers: Jamarcus Doran Hospital Stay Data Consultations 08/27/25 05:24 ED Decision to Admit Stat Diagnostic Imagining Performed Chest X-Ray 08/27/25 03:44 EXAM: XR chest 1V portable CLINICAL HISTORY: syncope, flu like TECHNIQUE: An X-ray image of the chest is obtained in AP projection. COMPARISON: 12/12/2021 02:49:11 COLLATOR HAND. FINDINGS: Ill-defined ground-glass opacity noted in right lower zone - likely pneumonitis. The lungs are clear and well-expanded with no pulmonary infiltrate or pleural effusion. The cardiomediastinal silhouette is within normal limits. No acute osseous abnormality. IMPRESSION: Ill-defined ground-glass opacity noted in right lower zone - likely pneumonitis.-stable. Right pleural effusion is resolved. Electronically signed by Gama Hart 08-27-2025 05:42 AM Chest X-Ray 08/28/25 06:00 EXAM: Radiographs of the Chest 2 Views INDICATION: Follow-up pulmonary findings. TECHNIQUE: Frontal and lateral views of the chest. COMPARISON: 08/27/2025 FINDINGS: Lungs and pleural spaces: Stable generalized prominence of the bronchovascular markings with improved mild patchy right perihilar infiltrate. No pleural effusion or pneumothorax. Heart: Normal shape and configuration. Mediastinum: Normal contour. Bones/joints: No fracture, erosion or dislocation. IMPRESSION: Stable generalized prominence of the bronchovascular markings with improved mild patchy right perihilar infiltrate. ACT 112: N/A Electronically signed by Yasmin Mcmahon 08-28-2025 08:48 AM Chest X-Ray 08/30/25 15:18 HISTORY: Influenza TECHNIQUE: Portable AP radiograph of the chest. COMPARISON: Chest radiographs dated 08/28/2025. FINDINGS: Previously demonstrated right perihilar opacity has resolved. No new focal consolidation. No pneumothorax or effusion. Mild cardiomegaly. Left-sided aortic arch. Midline trachea. No acute osseous abnormality. Included upper abdomen is unremarkable. IMPRESSION: * No acute cardiopulmonary findings. * Previously demonstrated right perihilar focal opacity has resolved. Electronically signed by Pierre White 08-30-2025 5:24 PM Pending Results Patient Have Any Pending Studies at Discharge: No Discharge Instructions Given to Patient (Per Discharging Provider) Cyn, They were admitted to the hospital after an episode of transient syncope (passing out) in the setting of influenza A and pneumonitis (inflammation of the lung tissue). You also had a mild WILLIAM (8 acute kidney injury) in the setting of dehydration and NSAIDs. After rehydration and holding your NSAID medications, your kidney function returned to normal. You are now stable on room air, symptoms are controlled, and are ready to be discharged home. Upon discharge from the hospital: * You can use oyem-sck-ahhbofs supportive care measures including Tylenol as needed for body aches/fever, guaifenesin as needed for congestion/wet cough, and dextromethorphan for cough suppression/dry cough. * Recommend avoiding NSAID based medications such as Aleve or ibuprofen, as this appeared to have a negative effect on your kidneys while you are hospitalized. You can discuss further with your primary care about long-term use with these medications. * Consider having swallow study done with speech therapy to definitively rule out aspiration. You can discuss this further with your PCP at your hospital follow-up appointment. * Follow-up with your PCP in 1-2 weeks. Please return to the hospital if you experience any of the following: Persistent fever despite medication, worsening shortness of breath, difficulty breathing, chest pain, inability to tolerate oral intake, low or no urine output, passing out, new or worsening confusion, or any other symptoms concerning for you. It was a pleasure taking care of you while you were in the hospital, Linda Pickard PA-C Total Time Total Time Spent Total Time Spent (In Minutes): Greater than 30 minutes spent completing this discharge process including direct patient care, medication reconciliation, documentation, review of labs and images, and coordination of care. Coding Level of Care Code 56968 INP/OBS DISCH >30 MIN Diagnoses Influenza A with respiratory manifestations J10.1 Aspiration pneumonitis due to regurgitated gastric secretions J69.0 Acute kidney injury N17.9 Hypoxia R09.02"
[2025-09-01 10:20] VITALS: PULSE 72; RESP 16; O2SAT 93
[2025-09-01 10:27] VITALS: BP 145/78
[2025-09-03] MEDS ORDERED: predniSONE 20 MG TAB PO SCH (08:00)
== END 2025-09-01 10:55 | disposition home or self-care (01) | DRG 193 ==
LOC: SUATTDRO → ED 02:50 → EDINP 05:59 → SUATTDRO 05:59 → 4W 14:07